=== PATIENT | female | born 1940 | race Caucasian/White ===

== ENCOUNTER 2019-03-01 09:25 | Inpatient (IN) | payer MEDICARE, OTHER ==
[~2019-03-01] VITALS: Ht 157.5 cm; Wt 100.2 kg
[2019-03-01] MEDS ORDERED: MAGN400T40 PO (09:42)
[2019-03-01] MEDS ORDERED: FURO80 PO (09:42)
[2019-03-01] MEDS ORDERED: ALLO100T PO (09:42)
[2019-03-01] MEDS ORDERED: GABA-531 PO (09:42)
[2019-03-01] MEDS ORDERED: INSLAN SQ (09:42)
[2019-03-01] MEDS ORDERED: PANT40TA25 PO (09:42)
[2019-03-01] MEDS ORDERED: KDUR20 PO (09:42)
[2019-03-01] MEDS ORDERED: [UNRECOGNIZED DRUG - CODE] TD (09:42)
[2019-03-01] MEDS ORDERED: CARV12 PO (09:42)
[2019-03-01] MEDS ORDERED: FOLI1 PO (09:42)
[2019-03-01] MEDS ORDERED: ERGO500054 PO (09:42)
[2019-03-01] MEDS ORDERED: ZARO2.5 PO (09:42)
[2019-03-01] MEDS ORDERED: DULO30CA2 PO (09:42)
[2019-03-01] MEDS ORDERED: ASPI81 PO (09:42)
[2019-03-01 09:43] LABS: GLUCOSE,POINT OF CARE 189 MG/DL (70-110)
[2019-03-01] MEDS ORDERED: SODIUM CHLORIDE 0.9% 1,000 ML IV ONE (10:15)
[2019-03-01] MEDS ORDERED: ONDANSETRON HCL 4 MG/2 ML VIAL IVP ONE (10:15)
[2019-03-01 10:41] LABS: BASOPHILS % (AUTO) 0.6 % (0.0-2.0); EOSINOPHILS % (AUTO) 0.9 % (1.0-6.0); HEMATOCRIT 37.1 % (36-46); HEMOGLOBIN 12.1 g/dL (12.0-16.0); LYMPHOCYTES # (AUTO) 1.8 K/uL (1.0-4.8); LYMPHOCYTES % (AUTO) 12.7 % (22.0-44.0); MEAN CORPUSCULAR HEMOGLOBIN 24.6 pg (26.0-34.0); MEAN CORPUSCULAR HGB CONC 32.7 G/dL (31.0-37.0); MEAN CORPUSCULAR VOLUME 75 fL (80-100); MONOCYTES # (AUTO) 0.8 K/uL (0.1-1.0); MONOCYTES % (AUTO) 5.6 % (2.0-9.0); NEUTROPHILS # (AUTO) 11.2 K/uL (1.8-7.7); NEUTROPHILS % (AUTO) 80.2 % (40.0-70.0); PLATELET COUNT (AUTO) 333 K/uL (150-450); RED BLOOD CELL COUNT(AUTO) 4.93 MIL/uL (4.00-5.20); RED CELL DISTRIBUTION WIDTH 16.8 % (11.5-14.5)
[2019-03-01 10:56] LABS: ALBUMIN 3.3 g/dL (3.4-5.0); BILIRUBIN,TOTAL 0.5 mg/dL (0.1-1.0); CALCIUM, TOTAL 9.3 mg/dL (8.8-10.5); CREATININE 2.21 mg/dL (0.60-1.30); TOTAL PROTEIN, SERUM 8.7 g/dL (6.4-8.2)
[2019-03-01 10:58] LABS: POTASSIUM 2.9 mmol/L (3.5-5.1)
[2019-03-01] MEDS ORDERED: POTASSIUM CHLORIDE 20 MEQ ER TABLET PO ONE (11:00)
[2019-03-01 11:46] LABS: APPEARANCE,URINE CLOUDY (CLEAR); BILIRUBIN,URINE NEGATIVE (NEGATIVE); GLUCOSE, URINE (UA) NEGATIVE (NEGATIVE); KETONES,URINE NEGATIVE (NEGATIVE); LEUKOCYTE ESTERASE ,URINE LARGE (NEGATIVE); NITRATE,URINE NEGATIVE (NEGATIVE); OCCULT BLOOD,URINE NEGATIVE (NEGATIVE); PH,URINE 6.5 (5.0-8.0); PROTEIN,URINE TRACE (NEGATIVE); UROBILINOGEN,URINE 0.2 mg/dL (<=1.0)
[2019-03-01 12:03] LABS: BACTERIA,URINE Many /HPF (None Seen); RBC,URINE 0-2 /HPF (0-2); SQUAMOUS EPITHELIAL CELL,UR Few /LPF (None Seen)
[2019-03-01] MEDS ORDERED: SODIUM CHLORIDE 0.9% 500 ML IV ONE (13:00)
[2019-03-01] MEDS ORDERED: BISACODYL 10 MG RECTAL RECTAL SUPPOSITORY PR PRN (13:00)
[2019-03-01] MEDS ORDERED: MORPHINE SULFATE 2 MG/ML SYRINGE IVP PRN (13:00)
[2019-03-01] MEDS ORDERED: DEXTROSE 50%-WATER 25 GM/50 ML SYRINGE IVP PRN (13:00)
[2019-03-01] MEDS ORDERED: MAGNESIUM HYDROXIDE SUSPENSION 30 ML UDCUP PO PRN (13:00)
[2019-03-01] MEDS ORDERED: ACETAMINOPHEN 325 MG TABLET PO PRN ×2 (13:00)
[2019-03-01] MEDS ORDERED: ONDANSETRON HCL 4 MG/2 ML VIAL IVP PRN ×2 (13:00)
[2019-03-01] MEDS ORDERED: CefTRIAXone 1 GM/DEXTROSE 50 ML IV ONE (13:15)
[2019-03-01] MEDS: HEPARIN SODIUM,PORCINE 5,000 UNITS/ML VIAL SQ SCH (16:22)
[2019-03-01] MEDS: DOCUSATE SODIUM 100 MG CAPSULE PO SCH (19:16)
[2019-03-01] MEDS: HYDROCODONE/ACETAMINOPHEN 5-325 MG TABLET PO PRN ×2 (19:17→21:40)
[2019-03-01] MEDS: INSULIN LISPRO 100 UNITS/ML SQ PRN (20:57)
[2019-03-01 22:27] VITALS: BP 126/61
[2019-03-02 00:20] VITALS: BP 124/69
[2019-03-02] MEDS: HEPARIN SODIUM,PORCINE 5,000 UNITS/ML VIAL SQ SCH ×3 (00:37→16:33)
[2019-03-02 00:39] LABS: GLUCOMETER DEV NAME(LOC) 5N.2; GLUCOSE,POINT OF CARE 303 MG/DL (70-110)
[2019-03-02] MEDS: HYDROCODONE/ACETAMINOPHEN 5-325 MG TABLET PO PRN ×2 (04:04→20:43)
[2019-03-02 04:50] VITALS: BP 134/63
[2019-03-02] MEDS: INSULIN LISPRO 100 UNITS/ML SQ PRN ×4 (06:11→20:53)
[2019-03-02 06:21] LABS: ALBUMIN 2.9 g/dL (3.4-5.0); BILIRUBIN,TOTAL 0.4 mg/dL (0.1-1.0); CALCIUM, TOTAL 8.4 mg/dL (8.8-10.5); CREATININE 2.17 mg/dL (0.60-1.30); TOTAL PROTEIN, SERUM 7.7 g/dL (6.4-8.2)
[2019-03-02 06:28] LABS: POTASSIUM 2.7 mmol/L (3.5-5.1)
[2019-03-02 07:34] VITALS: BP 144/71
[2019-03-02] MEDS ORDERED: SODIUM CHLORIDE 0.9% 1,000 ML IV SCH (08:00)
[2019-03-02] MEDS ORDERED: POTASSIUM CHLORIDE 20 MEQ ER TABLET PO ONE (08:00)
[2019-03-02 08:46] LABS: MAGNESIUM 2.4 mg/dL (1.80-2.40); PHOSPHORUS 4.9 mg/dL (2.5-4.9)
[2019-03-02] MEDS: DOCUSATE SODIUM 100 MG CAPSULE PO SCH ×2 (09:00→20:42)
[2019-03-02] MEDS: PANTOPRAZOLE SODIUM 40 MG DR TABLET PO SCH (10:41)
[2019-03-02] MEDS: POTASSIUM CHL 10 MEQ/WATER 50 ML IV SCH ×2 (10:41→13:25)
[2019-03-02 11:13] VITALS: BP 145/82
[2019-03-02 15:35] VITALS: BP 154/71
[2019-03-02 16:01] LABS: GLUCOMETER DEV NAME(LOC) 5N.1; GLUCOSE,POINT OF CARE 233 MG/DL (70-110)
[2019-03-02] MEDS ORDERED: POTASSIUM CHLORIDE 10 MEQ ER TABLET PO ONE (17:45)
[2019-03-02 18:13] LABS: GLUCOMETER DEV NAME(LOC) 5S.2A; GLUCOSE,POINT OF CARE 192 MG/DL (70-110)
[2019-03-02 19:50] LABS: GLUCOMETER DEV NAME(LOC) 5N.2; GLUCOSE,POINT OF CARE 256 MG/DL (70-110)
[2019-03-02 21:04] VITALS: BP 144/65
[2019-03-02 22:34] LABS: CREATININE,URINE RANDOM 12.7 mg/dL (30.0-125.0)
[2019-03-03] MEDS: HEPARIN SODIUM,PORCINE 5,000 UNITS/ML VIAL SQ SCH ×3 (00:33→16:46)
[2019-03-03] MEDS: ZOLPIDEM TARTRATE 5 MG TABLET PO PRN ×2 (00:33→20:40)
[2019-03-03 01:14] VITALS: BP 131/56
[2019-03-03 04:55] VITALS: BP 140/64
[2019-03-03] MEDS: INSULIN LISPRO 100 UNITS/ML SQ PRN ×4 (06:29→21:04)
[2019-03-03 06:55] LABS: BASOPHILS % (AUTO) 0.4 % (0.0-2.0); EOSINOPHILS % (AUTO) 2.2 % (1.0-6.0); HEMATOCRIT 33.9 % (36-46); HEMOGLOBIN 10.8 g/dL (12.0-16.0); LYMPHOCYTES # (AUTO) 1.7 K/uL (1.0-4.8); LYMPHOCYTES % (AUTO) 18.4 % (22.0-44.0); MEAN CORPUSCULAR HEMOGLOBIN 24.2 pg (26.0-34.0); MEAN CORPUSCULAR HGB CONC 31.7 G/dL (31.0-37.0); MEAN CORPUSCULAR VOLUME 76 fL (80-100); MONOCYTES # (AUTO) 0.8 K/uL (0.1-1.0); MONOCYTES % (AUTO) 8.2 % (2.0-9.0); NEUTROPHILS # (AUTO) 6.7 K/uL (1.8-7.7); NEUTROPHILS % (AUTO) 70.8 % (40.0-70.0); PLATELET COUNT (AUTO) 314 K/uL (150-450); RED BLOOD CELL COUNT(AUTO) 4.45 MIL/uL (4.00-5.20); RED CELL DISTRIBUTION WIDTH 16.9 % (11.5-14.5)
[2019-03-03 07:20] LABS: HEMOGLOBIN A1C 8.6 % (4.5-6.2)
[2019-03-03 07:37] LABS: ALBUMIN 3.1 g/dL (3.4-5.0); BILIRUBIN,TOTAL 0.3 mg/dL (0.1-1.0); CALCIUM, TOTAL 8.8 mg/dL (8.8-10.5); CREATININE 1.61 mg/dL (0.60-1.30); MAGNESIUM 2.3 mg/dL (1.80-2.40); PHOSPHORUS 3.1 mg/dL (2.5-4.9)
[2019-03-03 07:53] VITALS: BP 150/79
[2019-03-03 07:53] LABS: POTASSIUM 2.8 mmol/L (3.5-5.1)
[2019-03-03] MEDS ORDERED: POTASSIUM CHLORIDE 20 MEQ ER TABLET PO ONE (08:15)
[2019-03-03] MEDS: PANTOPRAZOLE SODIUM 40 MG DR TABLET PO SCH (08:31)
[2019-03-03] MEDS: DOCUSATE SODIUM 100 MG CAPSULE PO SCH ×2 (08:31→20:40)
[2019-03-03] MEDS: POTASSIUM CHL 10 MEQ/WATER 50 ML IV SCH ×2 (08:32→13:01)
[2019-03-03 11:03] VITALS: BP 157/78
[2019-03-03 13:32] LABS: GLUCOMETER DEV NAME(LOC) 5N.1; GLUCOSE,POINT OF CARE 323 MG/DL (70-110)
[2019-03-03 13:52] LABS: GLUCOMETER DEV NAME(LOC) 5S.2A; GLUCOSE,POINT OF CARE 286 MG/DL (70-110)
[2019-03-03 15:07] VITALS: BP 137/92
[2019-03-03] MEDS: HYDROCODONE/ACETAMINOPHEN 5-325 MG TABLET PO PRN (15:55)
[2019-03-03 19:39] LABS: GLUCOMETER DEV NAME(LOC) 5S.1; GLUCOSE,POINT OF CARE 203 MG/DL (70-110)
[2019-03-03 20:43] VITALS: BP 155/81
[2019-03-04 00:56] VITALS: BP 147/60
[2019-03-04] MEDS: HYDROCODONE/ACETAMINOPHEN 5-325 MG TABLET PO PRN ×2 (00:56→05:37)
[2019-03-04 04:38] VITALS: BP 154/76
[2019-03-04] MEDS: INSULIN LISPRO 100 UNITS/ML SQ PRN ×2 (05:42→12:27)
[2019-03-04 06:52] LABS: BASOPHILS % (AUTO) 0.5 % (0.0-2.0); HEMATOCRIT 34.1 % (36-46); HEMOGLOBIN 10.8 g/dL (12.0-16.0); LYMPHOCYTES # (AUTO) 1.8 K/uL (1.0-4.8); LYMPHOCYTES % (AUTO) 19.3 % (22.0-44.0); MEAN CORPUSCULAR HEMOGLOBIN 24.3 pg (26.0-34.0); MEAN CORPUSCULAR HGB CONC 31.8 G/dL (31.0-37.0); MEAN CORPUSCULAR VOLUME 76 fL (80-100); MONOCYTES # (AUTO) 0.7 K/uL (0.1-1.0); MONOCYTES % (AUTO) 7.5 % (2.0-9.0); NEUTROPHILS # (AUTO) 6.5 K/uL (1.8-7.7); NEUTROPHILS % (AUTO) 70.7 % (40.0-70.0); PLATELET COUNT (AUTO) 343 K/uL (150-450); RED BLOOD CELL COUNT(AUTO) 4.46 MIL/uL (4.00-5.20); RED CELL DISTRIBUTION WIDTH 16.5 % (11.5-14.5)
[2019-03-04 07:01] LABS: % IRON SATURATION 12.4 % (22-44)
[2019-03-04 07:11] LABS: CALCIUM, TOTAL 8.9 mg/dL (8.8-10.5); CREATININE 1.42 mg/dL (0.60-1.30); MAGNESIUM 2.1 mg/dL (1.80-2.40); PHOSPHORUS 2.8 mg/dL (2.5-4.9); POTASSIUM 3.7 mmol/L (3.5-5.1)
[2019-03-04 08:20] LABS: GLUCOMETER DEV NAME(LOC) 5N.1; GLUCOSE,POINT OF CARE 241 MG/DL (70-110)
[2019-03-04 08:27] VITALS: BP 161/83
[2019-03-04] MEDS: PANTOPRAZOLE SODIUM 40 MG DR TABLET PO SCH (09:40)
[2019-03-04] MEDS: DOCUSATE SODIUM 100 MG CAPSULE PO SCH (09:40)
[2019-03-04] MEDS: HEPARIN SODIUM,PORCINE 5,000 UNITS/ML VIAL SQ SCH ×2 (09:40)
[2019-03-04 11:13] VITALS: BP 149/63
[2019-03-04 12:22] LABS: GLUCOMETER DEV NAME(LOC) 5S.2A; GLUCOSE,POINT OF CARE 243 MG/DL (70-110)
[2019-03-04 12:22] LABS: GLUCOMETER DEV NAME(LOC) 5S.2A; GLUCOSE,POINT OF CARE 233 MG/DL (70-110)
[2019-03-04 12:22] LABS: GLUCOMETER DEV NAME(LOC) 5S.2A; GLUCOSE,POINT OF CARE 235 MG/DL (70-110)
[2019-03-04] MEDS ORDERED: FUROL PO (13:46)
[2019-03-04] MEDS ORDERED: POTA8CAP20 PO (13:47)
[2019-03-04] MEDS ORDERED: GABA-529 PO (13:47)
[2019-03-04] MEDS ORDERED: FURO20 PO (13:48)
== END 2019-03-04 15:50 | disposition home health service (06) | DRG 682 ==
LOC: EMS 09:26 → 5S 18:45
PROVIDERS: ADMIT Internal Medicine; ATTEND Internal Medicine
DX: N17.9 Acute kidney failure, unspecified (principal); R65.11 Systemic inflammatory response syndrome (SIRS) of non-infectious origin with acute organ dysfunction; E87.1 Hypo-osmolality and hyponatremia; Z68.41 Body mass index [BMI] 40.0-44.9, adult; N39.0 Urinary tract infection, site not specified; I13.0 Hypertensive heart and chronic kidney disease with heart failure and stage 1 through stage 4 chronic kidney disease, or unspecified chronic kidney disease; E87.6 Hypokalemia; N18.9 Chronic kidney disease, unspecified; E66.9 Obesity, unspecified; E11.22 Type 2 diabetes mellitus with diabetic chronic kidney disease; I50.9 Heart failure, unspecified; I25.10 Atherosclerotic heart disease of native coronary artery without angina pectoris; T50.2X5A Adverse effect of carbonic-anhydrase inhibitors, benzothiadiazides and other diuretics, initial encounter; J44.9 Chronic obstructive pulmonary disease, unspecified; M10.9 Gout, unspecified; Z95.1 Presence of aortocoronary bypass graft; Z87.891 Personal history of nicotine dependence; Z86.61 Personal history of infections of the central nervous system; Z79.899 Other long term (current) drug therapy; Z79.82 Long term (current) use of aspirin; Z79.4 Long term (current) use of insulin
CPT/HCPCS: 70450; 76770; 82570; 82728; 83036; 83540; 83550; 83735; 83935; 84100; 84132; 84156; 84300; 84540; 87086; 93005; 93306; 97116; 97162; 97166; 97530; 97535; G0378; J0696; J1644; J2270; J2405; J3480; J7030; J7040

== ENCOUNTER → 2019-03-31 | Outpatient (CLI) | payer MEDICARE, OTHER ==
[~2019-03-31] VITALS: Ht 154.9 cm; Wt 98.0 kg
[~2019-03-31] MED LIST: ALLO100T PO; ASPI-728 PO; CARV12 PO; DULO30CA2 PO; ERGO500054 PO; FOLI1 PO; FURO20 PO; GABA-529 PO; INSLAN SQ; INSU100C14 SQ; KDUR20 PO; MAGN400T40 PO; PANT40TA25 PO; POTA8CAP20 PO; POTA8TAB60 PO
[2019-03-31 11:15] VITALS: BP 159/72
[2019-03-31 15:40] LABS: GLUCOMETER DEV NAME(LOC) SHC.; GLUCOSE,POINT OF CARE 149 MG/DL (70-110)
== END | disposition home or self-care (01) ==
LOC: SRCNTR 11:14
PROVIDERS: ATTEND Hospitalist
DX: I25.10 Atherosclerotic heart disease of native coronary artery without angina pectoris (principal); E11.65 Type 2 diabetes mellitus with hyperglycemia; E11.22 Type 2 diabetes mellitus with diabetic chronic kidney disease; I12.9 Hypertensive chronic kidney disease with stage 1 through stage 4 chronic kidney disease, or unspecified chronic kidney disease; N18.9 Chronic kidney disease, unspecified
CPT/HCPCS: 82962; G0463

== ENCOUNTER 2019-04-22 13:23 | Emergency (ER) | payer MEDICARE, OTHER ==
[~2019-04-22] VITALS: Ht 160 cm; Wt 96.8 kg
[~2019-04-22 13:23] MED LIST changes: -ASPI-728 PO; +ASPI81 PO; -ERGO500054 PO; -INSU100C14 SQ; -KDUR20 PO; -MAGN400T40 PO; -POTA8CAP20 PO
[2019-04-22] MEDS ORDERED: KDUR20 PO (13:48)
[2019-04-22] MEDS ORDERED: INSU100C14 SQ (13:48)
[2019-04-22] MEDS ORDERED: SODIUM CHLORIDE 0.9% 1,000 ML IV ONE (14:15)
[2019-04-22] MEDS ORDERED: ONDANSETRON HCL 4 MG/2 ML VIAL IVP ONE (14:30)
[2019-04-22] MEDS ORDERED: MORPHINE SULFATE 4 MG/ML SYRINGE IVP ONE (14:30)
[2019-04-22 14:40] LABS: BASOPHILS % (AUTO) 0.1 % (0.0-2.0); EOSINOPHILS % (AUTO) 0.7 % (1.0-6.0); HEMATOCRIT 37.1 % (36-46); HEMOGLOBIN 11.7 g/dL (12.0-16.0); LYMPHOCYTES # (AUTO) 1.4 K/uL (1.0-4.8); LYMPHOCYTES % (AUTO) 8.8 % (22.0-44.0); MEAN CORPUSCULAR HEMOGLOBIN 24.9 pg (26.0-34.0); MEAN CORPUSCULAR HGB CONC 31.7 G/dL (31.0-37.0); MEAN CORPUSCULAR VOLUME 79 fL (80-100); MONOCYTES # (AUTO) 0.9 K/uL (0.1-1.0); MONOCYTES % (AUTO) 5.4 % (2.0-9.0); NEUTROPHILS # (AUTO) 13.9 K/uL (1.8-7.7); PLATELET COUNT (AUTO) 256 K/uL (150-450); RED BLOOD CELL COUNT(AUTO) 4.71 MIL/uL (4.00-5.20); RED CELL DISTRIBUTION WIDTH 17.9 % (11.5-14.5)
[2019-04-22 14:57] LABS: CALCIUM, TOTAL 8.6 mg/dL (8.8-10.5); CREATININE 1.82 mg/dL (0.60-1.30); POTASSIUM 4.1 mmol/L (3.5-5.1)
[2019-04-22 15:03] LABS: ALBUMIN 3.5 g/dL (3.4-5.0); BILIRUBIN,TOTAL 0.7 mg/dL (0.1-1.0); TOTAL PROTEIN, SERUM 7.5 g/dL (6.4-8.2)
[2019-04-22 15:14] LABS: APPEARANCE,URINE CLOUDY (CLEAR); GLUCOSE, URINE (UA) NEGATIVE (NEGATIVE); KETONES,URINE NEGATIVE (NEGATIVE); LEUKOCYTE ESTERASE ,URINE LARGE (NEGATIVE); NITRATE,URINE NEGATIVE (NEGATIVE); OCCULT BLOOD,URINE TRACE (NEGATIVE); PH,URINE 5.5 (5.0-8.0); PROTEIN,URINE SEE CONFIRM (NEGATIVE)
[2019-04-22] MEDS ORDERED: BARIUM SULFATE 0.1% SUSPENSION 450 ML BOTTLE PO ONE (15:15)
[2019-04-22 15:18] LABS: BILIRUBIN,URINE PRELIM. POSITIVE (NEGATIVE)
[2019-04-22 15:22] LABS: SULFOSALICYLIC ACID,URINE 4+ (Negative)
[2019-04-22 15:23] LABS: BACTERIA,URINE Many /HPF (None Seen); RBC,URINE 0-2 /HPF (0-2); WBC,URINE 51-100 /HPF (0-5)
[2019-04-22 15:24] LABS: TRANSITIONAL EPI CELLS,URINE Few /LPF (None Seen)
[2019-04-22 15:26] LABS: SQUAMOUS EPITHELIAL CELL,UR Many /LPF (None Seen)
[2019-04-22 15:55] LABS: GLUCOSE,POINT OF CARE 244 MG/DL (70-110)
[2019-04-22 19:15] VITALS: BP 130/78
== END 2019-04-22 19:16 | disposition home or self-care (01) ==
LOC: EMS 13:26
DX: K52.9 Noninfective gastroenteritis and colitis, unspecified (principal); R11.2 Nausea with vomiting, unspecified; E11.9 Type 2 diabetes mellitus without complications; I11.0 Hypertensive heart disease with heart failure; I50.9 Heart failure, unspecified; J44.9 Chronic obstructive pulmonary disease, unspecified; Z90.49 Acquired absence of other specified parts of digestive tract; Z95.1 Presence of aortocoronary bypass graft; Z95.0 Presence of cardiac pacemaker; Z79.899 Other long term (current) drug therapy; Z79.4 Long term (current) use of insulin; Z98.890 Other specified postprocedural states; Z88.8 Allergy status to other drugs, medicaments and biological substances
CPT/HCPCS: 36415; 74176; 80053; 81001; 82962; 83605; 83690; 84484; 85025; 87077; 87086; 87186; 93005; 96361; 96374; 96375; 99285; J2270; J2405; J7030

== ENCOUNTER → 2019-05-27 | Outpatient (CLI) | payer MEDICARE, OTHER ==
[~2019-05-27] MED LIST changes: +ASPI-728 PO; -ASPI81 PO; +INSU100C14 SQ; +KDUR20 PO
[2019-05-27 11:07] LABS: HEMATOCRIT 31.8 % (36-46); HEMOGLOBIN 10.3 g/dL (12.0-16.0)
[2019-05-27 11:15] LABS: CREATININE,URINE RANDOM 38.7 mg/dL (30.0-125.0)
[2019-05-27 11:25] LABS: % IRON SATURATION 9.2 % (22-44)
[2019-05-27 11:45] LABS: ALBUMIN 3.4 g/dL (3.4-5.0); BILIRUBIN,TOTAL 0.3 mg/dL (0.1-1.0); CALCIUM, TOTAL 8.7 mg/dL (8.8-10.5); CREATININE 1.05 mg/dL (0.60-1.30); POTASSIUM 4.8 mmol/L (3.5-5.1); TOTAL PROTEIN, SERUM 7.1 g/dL (6.4-8.2)
== END | disposition home or self-care (01) ==
LOC: LABPV 09:46
PROVIDERS: ATTEND Internal Medicine Nephrology
DX: E11.22 Type 2 diabetes mellitus with diabetic chronic kidney disease (principal); N18.3 Chronic kidney disease, stage 3 (moderate); D63.1 Anemia in chronic kidney disease
CPT/HCPCS: 82570; 83540; 83550; 84156; 85014; 85018

== ENCOUNTER → 2019-06-23 | Outpatient (CLI) | payer MEDICARE, OTHER ==
[2019-06-23 12:47] LABS: CREATININE,URINE 20.1 mg/dL (30.0-125.0)
[2019-06-24 13:32] LABS: CREATININE,SERUM FOR CRCL 1.94 mg/dL (0.60-1.30)
== END | disposition home or self-care (01) ==
LOC: LABPV 06-20 08:01
PROVIDERS: ATTEND Internal Medicine Nephrology
DX: N18.3 Chronic kidney disease, stage 3 (moderate) (principal)
CPT/HCPCS: 81050; 82575; 84156; 84300

== ENCOUNTER → 2019-06-23 | Outpatient (CLI) | payer MEDICARE, OTHER ==
[~2019-06-23] MED LIST changes: +IOVERSOL 350 MG/ML 100 ML VIAL ONE; +SODIUM CHLORIDE 0.9% 100 ML ONE
== END | disposition home or self-care (01) ==
LOC: RADMN 09:16
PROVIDERS: ATTEND Internal Medicine Nephrology
DX: N28.89 Other specified disorders of kidney and ureter (principal)
CPT/HCPCS: 74178; J7050; Q9967

== ENCOUNTER → 2019-12-15 | Outpatient (CLI) | payer MEDICARE, OTHER ==
[~2019-12-15] MED LIST changes: +ALLO-44 PO; -ALLO100T PO; -DULO30CA2 PO; +DULO30CA96 PO; +FOLI-130 PO; -FOLI1 PO; +GABA-1216 PO; -GABA-529 PO; -IOVERSOL 350 MG/ML 100 ML VIAL ONE; -KDUR20 PO; +PANT-31 PO; -PANT40TA25 PO; +POTA20TA83 PO; -SODIUM CHLORIDE 0.9% 100 ML ONE
== END | disposition home or self-care (01) ==
LOC: SRCNTR 11:03
PROVIDERS: ATTEND Hospitalist
DX: I12.9 Hypertensive chronic kidney disease with stage 1 through stage 4 chronic kidney disease, or unspecified chronic kidney disease (principal); I25.10 Atherosclerotic heart disease of native coronary artery without angina pectoris; N18.3 Chronic kidney disease, stage 3 (moderate); C55 Malignant neoplasm of uterus, part unspecified; N30.40 Irradiation cystitis without hematuria; H35.30 Unspecified macular degeneration; H26.9 Unspecified cataract; Z95.0 Presence of cardiac pacemaker; Z95.1 Presence of aortocoronary bypass graft; Z90.710 Acquired absence of both cervix and uterus; Z90.49 Acquired absence of other specified parts of digestive tract; Z98.890 Other specified postprocedural states; Z88.8 Allergy status to other drugs, medicaments and biological substances; Z79.82 Long term (current) use of aspirin; Z79.4 Long term (current) use of insulin; Z79.899 Other long term (current) drug therapy
CPT/HCPCS: Q3014

== ENCOUNTER 2020-02-25 12:57 | Emergency (ER) | payer MEDICARE, OTHER ==
[~2020-02-25] VITALS: Ht 154.9 cm; Wt 94.3 kg
[2020-02-25 16:26] LABS: BASOPHILS % (AUTO) 0.5 % (0.0-2.0); EOSINOPHILS % (AUTO) 1.1 % (1.0-6.0); HEMATOCRIT 38.5 % (36-46); HEMOGLOBIN 12.5 g/dL (12.0-16.0); LYMPHOCYTES # (AUTO) 1.7 K/uL (1.0-4.8); LYMPHOCYTES % (AUTO) 16.1 % (22.0-44.0); MEAN CORPUSCULAR HEMOGLOBIN 27.3 pg (26.0-34.0); MEAN CORPUSCULAR HGB CONC 32.6 G/dL (31.0-37.0); MEAN CORPUSCULAR VOLUME 84 fL (80-100); MONOCYTES # (AUTO) 0.7 K/uL (0.1-1.0); MONOCYTES % (AUTO) 6.9 % (2.0-9.0); NEUTROPHILS # (AUTO) 7.8 K/uL (1.8-7.7); NEUTROPHILS % (AUTO) 75.4 % (40.0-70.0); PLATELET COUNT (AUTO) 261 K/uL (150-450); RED CELL DISTRIBUTION WIDTH 16.6 % (11.5-14.5)
[2020-02-25 16:37] LABS: CALCIUM, TOTAL 9.7 mg/dL (8.8-10.5); CREATININE 2.13 mg/dL (0.60-1.30); POTASSIUM 3.8 mmol/L (3.5-5.1)
[2020-02-25 16:43] LABS: ALBUMIN 4.1 g/dL (3.4-5.0); BILIRUBIN,TOTAL 0.6 mg/dL (0.1-1.0); TOTAL PROTEIN, SERUM 8.4 g/dL (6.4-8.2)
[2020-02-25] MEDS ORDERED: SODIUM CHLORIDE 0.9% 500 ML IV ONE (17:00)
[2020-02-25 17:17] LABS: APPEARANCE,URINE CLOUDY (CLEAR); BILIRUBIN,URINE NEGATIVE (NEGATIVE); GLUCOSE, URINE (UA) NEGATIVE (NEGATIVE); KETONES,URINE NEGATIVE (NEGATIVE); LEUKOCYTE ESTERASE ,URINE MODERATE (NEGATIVE); NITRATE,URINE NEGATIVE (NEGATIVE); OCCULT BLOOD,URINE NEGATIVE (NEGATIVE); PH,URINE 5.5 (5.0-8.0); PROTEIN,URINE POS 1+ (NEGATIVE); UROBILINOGEN,URINE 0.2 mg/dL (<=1.0)
[2020-02-25 17:22] LABS: BACTERIA,URINE Many /HPF (None Seen)
[2020-02-25 17:23] LABS: RBC,URINE None Seen /HPF (0-2); SQUAMOUS EPITHELIAL CELL,UR Few /LPF (None Seen)
[2020-02-25] MEDS ORDERED: CEPHALEXIN MONOHYDRATE 500 MG CAPSULE PO ONE (17:30)
[2020-02-25 18:40] VITALS: BP 171/84
== END 2020-02-25 19:03 | disposition home or self-care (01) ==
LOC: EMS 12:57
DX: N39.0 Urinary tract infection, site not specified (principal); R19.7 Diarrhea, unspecified; I11.0 Hypertensive heart disease with heart failure; I50.9 Heart failure, unspecified; E11.9 Type 2 diabetes mellitus without complications; Z87.891 Personal history of nicotine dependence; Z90.49 Acquired absence of other specified parts of digestive tract; Z79.82 Long term (current) use of aspirin; Z79.899 Other long term (current) drug therapy
CPT/HCPCS: 36415; 80053; 81001; 83880; 84484; 85025; 87086; 93005; 99284; J7040; 96360

== ENCOUNTER → 2020-06-04 | Outpatient (CLI) | payer MEDICARE, OTHER ==
[~2020-06-04] VITALS: Ht 152.4 cm; Wt 104.0 kg
[~2020-06-04] MED LIST changes: -ALLO-44 PO; +ALLO100T2 PO; +ASPI-1450 PO; -ASPI-728 PO; +CLON-465 PO; +CLOP75TA60 PO; -POTA8TAB60 PO
[2020-06-04 10:04] VITALS: BP 180/83
== END | disposition home or self-care (01) ==
LOC: SRCNTR 09:48
PROVIDERS: ATTEND Hospitalist
DX: C54.1 Malignant neoplasm of endometrium (principal); I25.10 Atherosclerotic heart disease of native coronary artery without angina pectoris; I12.9 Hypertensive chronic kidney disease with stage 1 through stage 4 chronic kidney disease, or unspecified chronic kidney disease; E11.22 Type 2 diabetes mellitus with diabetic chronic kidney disease; N18.30 Chronic kidney disease, stage 3 unspecified; N30.40 Irradiation cystitis without hematuria; G62.9 Polyneuropathy, unspecified; H35.30 Unspecified macular degeneration; H26.8 Other specified cataract; Z95.0 Presence of cardiac pacemaker
CPT/HCPCS: G0463

== ENCOUNTER 2020-06-30 20:29 | Inpatient (IN) | payer MEDICARE, OTHER ==
[~2020-06-30] VITALS: Ht 157.5 cm; Wt 105.1 kg
[2020-06-30] MEDS ORDERED: ONDANSETRON HCL 4 MG/2 ML VIAL IVP ONE (22:00)
[2020-06-30] MEDS ORDERED: MORPHINE SULFATE 2 MG/ML SYRINGE IVP ONE (22:00)
[2020-06-30] MEDS ORDERED: 0.9% SODIUM CHLORIDE 10 ML SYRINGE IVP PRN (22:15)
[2020-06-30] MEDS ORDERED: ACETAMINOPHEN 325 MG TABLET PO PRN ×2 (22:15→23:15)
[2020-06-30] MEDS ORDERED: ONDANSETRON HCL 4 MG/2 ML VIAL IVP PRN ×2 (22:15→23:15)
[2020-06-30 22:26] LABS: COVID AG,FIA SOURCE NASOPHARYNGEAL
[2020-06-30] MEDS ORDERED: MAGNESIUM HYDROXIDE SUSPENSION 30 ML UDCUP PO PRN (23:15)
[2020-06-30] MEDS ORDERED: ALBUTEROL SULFATE 2.5 MG/0.5 ML NEB SOLUTION NEB PRN (23:15)
[2020-06-30] MEDS ORDERED: HYDROCODONE/ACETAMINOPHEN 5-325 MG TABLET PO PRN (23:15)
[2020-06-30] MEDS ORDERED: IPRATROPIUM BROMIDE 0.5 MG/2.5 ML NEB SOLUTION NEB PRN (23:15)
[2020-06-30] MEDS ORDERED: HydrALAZINE HCL 20 MG/ML VIAL IVP PRN (23:15)
[2020-06-30] MEDS ORDERED: ZOLPIDEM TARTRATE 5 MG TABLET PO PRN (23:15)
[2020-06-30] MEDS ORDERED: BISACODYL 10 MG RECTAL RECTAL SUPPOSITORY PR PRN (23:15)
[2020-06-30] MEDS: HEPARIN SODIUM,PORCINE 5,000 UNITS/ML VIAL SQ SCH (23:53)
[2020-07-01] MEDS: MORPHINE SULFATE 2 MG/ML SYRINGE IVP PRN ×5 (00:30→21:26)
[2020-07-01 04:57] VITALS: BP 108/47
[2020-07-01 05:45] LABS: GLUCOMETER DEV NAME(LOC) 5S.2B; GLUCOSE,POINT OF CARE 205 MG/DL (70-110)
[2020-07-01] MEDS ORDERED: DEXTROSE 50%-WATER 25 GM/50 ML SYRINGE IVP PRN (07:00)
[2020-07-01 07:14] VITALS: BP 129/72
[2020-07-01] MEDS: HEPARIN SODIUM,PORCINE 5,000 UNITS/ML VIAL SQ SCH ×3 (08:00→20:51)
[2020-07-01] MEDS: CLOPIDOGREL BISULFATE 75 MG TABLET PO SCH (09:00)
[2020-07-01] MEDS ORDERED: [UNRECOGNIZED DRUG - OTHER] PO SCH ×3 (09:00)
[2020-07-01] MEDS: ASPIRIN 81 MG CHEWABLE TABLET PO SCH (10:45)
[2020-07-01] MEDS: FOLIC ACID 1 MG TABLET PO SCH (10:46)
[2020-07-01] MEDS: PANTOPRAZOLE SODIUM 40 MG DR TABLET PO SCH (10:46)
[2020-07-01] MEDS: CARVEDILOL 12.5 MG TABLET PO SCH ×2 (10:46→20:55)
[2020-07-01] MEDS: DOCUSATE SODIUM 100 MG CAPSULE PO SCH ×2 (10:46→20:55)
[2020-07-01] MEDS: GABAPENTIN 100 MG CAPSULE PO SCH ×3 (10:47→20:55)
[2020-07-01 11:32] VITALS: BP 144/83
[2020-07-01] MEDS: FUROSEMIDE 20 MG TABLET PO SCH ×2 (13:08→20:56)
[2020-07-01] MEDS: ALLOPURINOL 100 MG TABLET PO SCH (13:09)
[2020-07-01] MEDS: POTASSIUM CHLORIDE 20 MEQ ER TABLET PO SCH ×2 (13:09→20:55)
[2020-07-01] MEDS: DULoxetine HCL 30 MG CAPSULE PO SCH (13:09)
[2020-07-01] MEDS: INSULIN LISPRO 100 UNITS/ML SQ PRN ×3 (13:14→21:28)
[2020-07-01 16:31] VITALS: BP 109/54
[2020-07-01 18:23] LABS: GLUCOMETER DEV NAME(LOC) 5S.2B; GLUCOSE,POINT OF CARE 162 MG/DL (70-110)
[2020-07-01 18:24] LABS: GLUCOMETER DEV NAME(LOC) 5S.2B; GLUCOSE,POINT OF CARE 230 MG/DL (70-110)
[2020-07-01 19:35] VITALS: BP 120/87
[2020-07-01] MEDS: RINGERS SOLUTION,LACTATED 1,000 ML IV SCH (20:59)
[2020-07-01 21:32] LABS: BASOPHILS % (AUTO) 0.6 % (0.0-2.0); EOSINOPHILS % (AUTO) 3.1 % (1.0-6.0); HEMATOCRIT 28.6 % (36-46); HEMOGLOBIN 9.1 g/dL (12.0-16.0); LYMPHOCYTES % (AUTO) 10.4 % (22.0-44.0); MEAN CORPUSCULAR HEMOGLOBIN 26.6 pg (26.0-34.0); MEAN CORPUSCULAR HGB CONC 31.7 G/dL (31.0-37.0); MEAN CORPUSCULAR VOLUME 84 fL (80-100); MONOCYTES # (AUTO) 0.9 K/uL (0.1-1.0); MONOCYTES % (AUTO) 9.8 % (2.0-9.0); NEUTROPHILS % (AUTO) 76.1 % (40.0-70.0); PLATELET COUNT (AUTO) 200 K/uL (150-450); RED BLOOD CELL COUNT(AUTO) 3.41 MIL/uL (4.00-5.20); RED CELL DISTRIBUTION WIDTH 16.6 % (11.5-14.5)
[2020-07-01 21:40] LABS: CALCIUM, TOTAL 8.8 mg/dL (8.8-10.5); CREATININE 2.68 mg/dL (0.60-1.30); POTASSIUM 4.4 mmol/L (3.5-5.1)
[2020-07-01 21:45] LABS: INR 1.1 (0.9-1.1)
[2020-07-01 23:06] VITALS: BP 140/88
[2020-07-02 03:30] LABS: GLUCOMETER DEV NAME(LOC) 5S.2B; GLUCOSE,POINT OF CARE 179 MG/DL (70-110)
[2020-07-02] MEDS: MORPHINE SULFATE 2 MG/ML SYRINGE IVP PRN (03:55)
[2020-07-02 04:20] VITALS: BP 137/50
[2020-07-02 06:54] LABS: GLUCOMETER DEV NAME(LOC) 5S.2B; GLUCOSE,POINT OF CARE 156 MG/DL (70-110)
[2020-07-02 07:37] VITALS: BP 158/71
[2020-07-02] MEDS: HEPARIN SODIUM,PORCINE 5,000 UNITS/ML VIAL SQ SCH ×2 (08:00→16:00)
[2020-07-02] MEDS: ASPIRIN 81 MG CHEWABLE TABLET PO SCH (09:00)
[2020-07-02] MEDS: CLOPIDOGREL BISULFATE 75 MG TABLET PO SCH (09:00)
[2020-07-02] MEDS: FUROSEMIDE 20 MG TABLET PO SCH ×2 (09:00→09:20)
[2020-07-02] MEDS: POTASSIUM CHLORIDE 20 MEQ ER TABLET PO SCH ×2 (09:00→09:18)
[2020-07-02] MEDS: FOLIC ACID 1 MG TABLET PO SCH (09:18)
[2020-07-02] MEDS: ALLOPURINOL 100 MG TABLET PO SCH (09:18)
[2020-07-02] MEDS: DULoxetine HCL 30 MG CAPSULE PO SCH (09:18)
[2020-07-02] MEDS: CARVEDILOL 12.5 MG TABLET PO SCH ×2 (09:19→20:00)
[2020-07-02] MEDS: PANTOPRAZOLE SODIUM 40 MG DR TABLET PO SCH (09:19)
[2020-07-02] MEDS: GABAPENTIN 100 MG CAPSULE PO SCH ×3 (09:20→20:00)
[2020-07-02] MEDS: DOCUSATE SODIUM 100 MG CAPSULE PO SCH ×2 (09:20→19:59)
[2020-07-02 11:12] VITALS: BP 135/56
[2020-07-02] MEDS: RINGERS SOLUTION,LACTATED 1,000 ML IV SCH (11:19)
[2020-07-02] MEDS ORDERED: BUPIVACAINE HCL/PF 0.5% 30 ML VIAL ONE (14:22)
[2020-07-02] MEDS ORDERED: SODIUM CL IRRIG SOLN BAG 0 ML IRRIG ONE (14:23)
[2020-07-02] MEDS ORDERED: LIDOCAINE 1%/EPI 1:200,000/PF 30 ML VIAL ONE (14:23)
[2020-07-02] MEDS ORDERED: FURO80 PO (14:55)
[2020-07-02] MEDS ORDERED: GABA-1181 PO (14:55)
[2020-07-02] MEDS ORDERED: CLON0.1T2 PO (14:55)
[2020-07-02 16:36] VITALS: BP 143/53
[2020-07-02] MEDS ORDERED: BUMETANIDE 0.25 MG/ML 4 ML VIAL IVP ONE (17:00)
[2020-07-02] MEDS ORDERED: SODIUM CHLORIDE 0.9% 1,000 ML IV SCH (18:15)
[2020-07-02] MEDS: INSULIN LISPRO 100 UNITS/ML SQ PRN ×2 (18:18→20:01)
[2020-07-02 19:25] VITALS: BP 144/58
[2020-07-02 23:11] VITALS: BP 129/70
[2020-07-03] VITALS (7 sets, daily range): BP systolic 100–152; BP diastolic 47–80
[2020-07-03 00:18] LABS: GLUCOMETER DEV NAME(LOC) 5S.2B; GLUCOSE,POINT OF CARE 174 MG/DL (70-110)
[2020-07-03 00:18] LABS: GLUCOMETER DEV NAME(LOC) 5N.3; GLUCOSE,POINT OF CARE 290 MG/DL (70-110)
[2020-07-03 00:18] LABS: GLUCOMETER DEV NAME(LOC) 5S.2B; GLUCOSE,POINT OF CARE 163 MG/DL (70-110)
[2020-07-03] MEDS: MORPHINE SULFATE 2 MG/ML SYRINGE IVP PRN (04:01)
[2020-07-03 06:53] LABS: CALCIUM, TOTAL 8.8 mg/dL (8.8-10.5); CREATININE 2.14 mg/dL (0.60-1.30); MAGNESIUM 1.5 mg/dL (1.80-2.40); PHOSPHORUS 4.6 mg/dL (2.5-4.9); POTASSIUM 3.7 mmol/L (3.5-5.1)
[2020-07-03 07:00] LABS: % IRON SATURATION 7.1 % (22-44)
[2020-07-03 07:42] LABS: BASOPHILS % (AUTO) 0.4 % (0.0-2.0); EOSINOPHILS % (AUTO) 2.7 % (1.0-6.0); HEMATOCRIT 27.4 % (36-46); HEMOGLOBIN 8.7 g/dL (12.0-16.0); LYMPHOCYTES # (AUTO) 0.8 K/uL (1.0-4.8); LYMPHOCYTES % (AUTO) 8.1 % (22.0-44.0); MEAN CORPUSCULAR HEMOGLOBIN 26.8 pg (26.0-34.0); MEAN CORPUSCULAR HGB CONC 31.7 G/dL (31.0-37.0); MEAN CORPUSCULAR VOLUME 84 fL (80-100); MONOCYTES % (AUTO) 10.3 % (2.0-9.0); NEUTROPHILS # (AUTO) 7.7 K/uL (1.8-7.7); NEUTROPHILS % (AUTO) 78.5 % (40.0-70.0); PLATELET COUNT (AUTO) 185 K/uL (150-450); RED BLOOD CELL COUNT(AUTO) 3.25 MIL/uL (4.00-5.20); RED CELL DISTRIBUTION WIDTH 16.7 % (11.5-14.5)
[2020-07-03] MEDS: HEPARIN SODIUM,PORCINE 5,000 UNITS/ML VIAL SQ SCH ×2 (08:00)
[2020-07-03] MEDS ORDERED: MAGNESIUM SULFATE 2 GM/WATER 50 ML IV ONE (08:30)
[2020-07-03] MEDS ORDERED: POTASSIUM CHLORIDE 20 MEQ in SODIUM CHLORIDE 0.45% 1,000 ML IV SCH (08:30)
[2020-07-03] MEDS: ASPIRIN 81 MG CHEWABLE TABLET PO SCH (08:58)
[2020-07-03] MEDS: DULoxetine HCL 30 MG CAPSULE PO SCH (08:59)
[2020-07-03] MEDS: CLOPIDOGREL BISULFATE 75 MG TABLET PO SCH (08:59)
[2020-07-03] MEDS: FOLIC ACID 1 MG TABLET PO SCH (08:59)
[2020-07-03] MEDS: CARVEDILOL 12.5 MG TABLET PO SCH ×2 (08:59→21:27)
[2020-07-03] MEDS: GABAPENTIN 100 MG CAPSULE PO SCH (08:59)
[2020-07-03] MEDS: DOCUSATE SODIUM 100 MG CAPSULE PO SCH (08:59)
[2020-07-03] MEDS: PANTOPRAZOLE SODIUM 40 MG DR TABLET PO SCH (09:00)
[2020-07-03] MEDS: ALLOPURINOL 100 MG TABLET PO SCH (09:00)
[2020-07-03] MEDS ORDERED: SODIUM CHLORIDE 0.9% 1,000 ML ONE ×2 (09:21→10:47)
[2020-07-03] MEDS ORDERED: SODIUM CHLORIDE 0.9% 250 ML IV ONE ×2 (09:28→21:29)
[2020-07-03] MEDS: EPOETIN ALFA 10,000 UNITS/ML VIAL SQ SCH (09:30)
[2020-07-03] MEDS ORDERED: BACITRACIN 28 GM OINTMENT TP ONE (10:47)
[2020-07-03] MEDS ORDERED: MUPIROCIN CALCIUM 2% 22 GM OINTMENT ONE (10:47)
[2020-07-03] MEDS ORDERED: SODIUM CHLORIDE 0.9% 500 ML IV ONE (10:47)
[2020-07-03] MEDS ORDERED: SUGAMMADEX SODIUM 200 MG/2 ML VIAL IVP ONE (10:47)
[2020-07-03] MEDS ORDERED: SODIUM CL IRRIG SOLN BAG 3,000 ML IRRIG ONE (10:48)
[2020-07-03] MEDS ORDERED: BUPIVACAINE HCL/PF 0.25% 30 ML VIAL ONE (10:48)
[2020-07-03] MEDS ORDERED: BACITRACIN 50,000 UNITS/VIAL ONE (10:48)
[2020-07-03] MEDS ORDERED: LIDOCAINE/PF 1% 30 ML VIAL ONE ×2 (10:48→14:02)
[2020-07-03] MEDS ORDERED: SODIUM CHLORIDE 0.9% 1,000 ML IV ONE (11:00)
[2020-07-03] MEDS ORDERED: VANCOMYCIN HCL 1 GM/VIAL ONE (11:05)
[2020-07-03] MEDS ORDERED: MICROFIBRILLAR COLLAGEN 1 GM PACKAGE TP ONE (11:05)
[2020-07-03] MEDS ORDERED: ACETAMINOPHEN 1000 MG/ISO-OSM 100 ML IV ONE (11:10)
[2020-07-03] MEDS ORDERED: BUPIVACAINE LIPOSOME/PF 1.3%-13.3MG/ML SUSPENSION 20 ML VIAL INJ ONE (11:15)
[2020-07-03] MEDS ORDERED: TRANEXAMIC ACID 1,000 MG in DEXTROSE 5%-WATER 50 ML IV ONE (11:15)
[2020-07-03] MEDS ORDERED: BUPIVACAINE HCL/PF 0.5% 30 ML VIAL ONE (11:45)
[2020-07-03] MEDS: SOD FERRIC GLUC COMPLX/SUCROSE 125 MG in SODIUM CHLORIDE 0.9% 100 ML IV SCH (12:00)
[2020-07-03] MEDS ORDERED: FentaNYL CITRATE PF 100 MCG/2 ML VIAL IVP PRN (12:45)
[2020-07-03] MEDS ORDERED: HYDROmorphone 2 MG/ML VIAL IVP PRN (12:45)
[2020-07-03] MEDS ORDERED: MEPERIDINE-PF 25 MG/ML VIAL IVP PRN (12:45)
[2020-07-03] MEDS ORDERED: BUPIVACAINE/EPI/PF 0.5% 30 ML VIAL ONE (13:39)
[2020-07-03] MEDS ORDERED: LIDOCAINE 1%/EPI 1:200,000/PF 30 ML VIAL ONE (13:39)
[2020-07-03] MEDS ORDERED: SODIUM CHLORIDE 0.9% 100 ML ONE (16:03)
[2020-07-03] MEDS ORDERED: FUROSEMIDE 40 MG/4 ML VIAL ONE (16:51)
[2020-07-03 17:17] LABS: GLUCOMETER DEV NAME(LOC) 5N.3; GLUCOSE,POINT OF CARE 173 MG/DL (70-110)
[2020-07-03] MEDS ORDERED: ACETAMINOPHEN 325 MG TABLET PO PRN (17:45)
[2020-07-03] MEDS ORDERED: DOCUSATE SODIUM 250 MG CAPSULE PO PRN (17:45)
[2020-07-03] MEDS ORDERED: MORPHINE SULFATE 4 MG/ML SYRINGE IVP PRN (17:45)
[2020-07-03 20:30] LABS: BASOPHILS % (AUTO) 0.1 % (0.0-2.0); EOSINOPHILS % (AUTO) 0 % (1.0-6.0); HEMATOCRIT 31.7 % (36-46); LYMPHOCYTES # (AUTO) 0.4 K/uL (1.0-4.8); LYMPHOCYTES % (AUTO) 2.9 % (22.0-44.0); MEAN CORPUSCULAR HEMOGLOBIN 27.4 pg (26.0-34.0); MEAN CORPUSCULAR HGB CONC 31.7 G/dL (31.0-37.0); MEAN CORPUSCULAR VOLUME 87 fL (80-100); MONOCYTES # (AUTO) 0.2 K/uL (0.1-1.0); MONOCYTES % (AUTO) 1.4 % (2.0-9.0); NEUTROPHILS # (AUTO) 12.1 K/uL (1.8-7.7); PLATELET COUNT (AUTO) 176 K/uL (150-450); RED BLOOD CELL COUNT(AUTO) 3.66 MIL/uL (4.00-5.20)
[2020-07-03 20:35] LABS: NEUTROPHILS % (AUTO) 95.6 % (40.0-70.0)
[2020-07-03 21:00] LABS: PLATELET MORPHOLOGY COMMENT LARGE PLTS PRESENT
[2020-07-03] MEDS: CeFAZolin 1 GM/DEXTROSE 50 ML IV SCH (21:27)
[2020-07-03] MEDS: OXYGEN THERAPY IH SCH (21:27)
[2020-07-03] MEDS: GABAPENTIN 300 MG CAPSULE PO SCH (21:32)
[2020-07-04] VITALS: BP 130/48
[2020-07-04 04:00] VITALS: BP 121/45
[2020-07-04 05:24] LABS: GLUCOSE,POINT OF CARE 257 MG/DL (70-110)
[2020-07-04] MEDS: CeFAZolin 1 GM/DEXTROSE 50 ML IV SCH ×2 (05:50→12:30)
[2020-07-04 05:57] LABS: CALCIUM, TOTAL 8.7 mg/dL (8.8-10.5); CREATININE 2.44 mg/dL (0.60-1.30); MAGNESIUM 2.4 mg/dL (1.80-2.40); POTASSIUM 4.1 mmol/L (3.5-5.1)
[2020-07-04 06:27] LABS: BASOPHILS % (AUTO) 0.1 % (0.0-2.0); EOSINOPHILS % (AUTO) 0 % (1.0-6.0); HEMATOCRIT 30.5 % (36-46); HEMOGLOBIN 9.7 g/dL (12.0-16.0); LYMPHOCYTES # (AUTO) 0.4 K/uL (1.0-4.8); LYMPHOCYTES % (AUTO) 3.1 % (22.0-44.0); MEAN CORPUSCULAR HEMOGLOBIN 27.7 pg (26.0-34.0); MEAN CORPUSCULAR VOLUME 87 fL (80-100); MONOCYTES # (AUTO) 0.5 K/uL (0.1-1.0); MONOCYTES % (AUTO) 4.3 % (2.0-9.0); NEUTROPHILS # (AUTO) 10.4 K/uL (1.8-7.7); PLATELET COUNT (AUTO) 187 K/uL (150-450); RED BLOOD CELL COUNT(AUTO) 3.51 MIL/uL (4.00-5.20); RED CELL DISTRIBUTION WIDTH 16.7 % (11.5-14.5)
[2020-07-04] MEDS ORDERED: LIDOCAINE/PF 2% 5 ML VIAL IM ONE (06:29)
[2020-07-04] MEDS ORDERED: ROCURONIUM BROMIDE 10 MG/ML 5 ML VIAL IVP ONE (06:29)
[2020-07-04] MEDS ORDERED: FentaNYL CITRATE PF 100 MCG/2 ML VIAL IVP ONE (06:29)
[2020-07-04] MEDS ORDERED: PHENYLEPHRINE HCL 10 MG/ML VIAL IVP ONE (06:29)
[2020-07-04] MEDS ORDERED: MORPHINE SULFATE/PF 0.5 MG/ML 10 ML AMP IVP ONE (06:29)
[2020-07-04] MEDS ORDERED: PROPOFOL 1% 20 ML VIAL IVP ONE (06:29)
[2020-07-04] MEDS ORDERED: ONDANSETRON HCL 4 MG/2 ML VIAL IVP ONE (06:29)
[2020-07-04] MEDS ORDERED: DEXAMETHASONE SOD PHOS 4 MG/ML VIAL IVP ONE (06:29)
[2020-07-04] MEDS ORDERED: MORPHINE SULFATE 4 MG/ML SYRINGE IVP ONE (06:29)
[2020-07-04] MEDS ORDERED: 0.9% SODIUM CHLORIDE 10 ML VIAL IVP ONE (06:29)
[2020-07-04 06:36] LABS: NEUTROPHILS % (AUTO) 92.5 % (40.0-70.0)
[2020-07-04] MEDS: INSULIN LISPRO 100 UNITS/ML SQ PRN ×4 (06:48→20:55)
[2020-07-04 07:00] LABS: PLATELET MORPHOLOGY COMMENT LARGE PLTS PRESENT
[2020-07-04] MEDS: CARVEDILOL 12.5 MG TABLET PO SCH ×2 (08:16→20:47)
[2020-07-04] MEDS: FOLIC ACID 1 MG TABLET PO SCH (08:16)
[2020-07-04] MEDS: GABAPENTIN 300 MG CAPSULE PO SCH ×3 (08:16→20:47)
[2020-07-04] MEDS: OXYGEN THERAPY IH SCH ×2 (08:16→21:38)
[2020-07-04] MEDS: CLOPIDOGREL BISULFATE 75 MG TABLET PO SCH (08:16)
[2020-07-04] MEDS: ALLOPURINOL 100 MG TABLET PO SCH (08:16)
[2020-07-04] MEDS: PANTOPRAZOLE SODIUM 40 MG DR TABLET PO SCH (08:16)
[2020-07-04] MEDS: ASPIRIN 81 MG CHEWABLE TABLET PO SCH (08:16)
[2020-07-04] MEDS: DULoxetine HCL 30 MG CAPSULE PO SCH (08:16)
[2020-07-04 08:41] LABS: GLUCOSE,POINT OF CARE 258 MG/DL (70-110)
[2020-07-04] MEDS: SODIUM CHLORIDE 0.45% 1,000 ML IV SCH ×2 (09:00→23:08)
[2020-07-04] MEDS: HEPARIN SODIUM,PORCINE 5,000 UNITS/ML VIAL SQ SCH ×2 (09:00→20:48)
[2020-07-04 10:35] VITALS: BP 144/54
[2020-07-04] MEDS ORDERED: SODIUM CHLORIDE 0.9% 1,000 ML IV ONE (12:30)
[2020-07-04] MEDS: SOD FERRIC GLUC COMPLX/SUCROSE 125 MG in SODIUM CHLORIDE 0.9% 100 ML IV SCH (13:38)
[2020-07-04 15:24] VITALS: BP 121/75
[2020-07-04] MEDS: HYDROCODONE/ACETAMINOPHEN 5-325 MG TABLET PO PRN ×2 (15:30→23:26)
[2020-07-04] MEDS ORDERED: ENOXAPARIN SODIUM 40 MG/0.4 ML PF SYRINGE SQ SCH (16:00)
[2020-07-04 19:41] VITALS: BP 146/76
[2020-07-05 03:58] LABS: GLUCOMETER DEV NAME(LOC) 5S.2B; GLUCOSE,POINT OF CARE 214 MG/DL (70-110)
[2020-07-05 03:58] LABS: GLUCOMETER DEV NAME(LOC) 5S.2B; GLUCOSE,POINT OF CARE 181 MG/DL (70-110)
[2020-07-05 04:22] VITALS: BP 153/72
[2020-07-05 06:09] LABS: GLUCOMETER DEV NAME(LOC) 5N.3; GLUCOSE,POINT OF CARE 266 MG/DL (70-110)
[2020-07-05] MEDS: INSULIN LISPRO 100 UNITS/ML SQ PRN ×4 (06:17→20:56)
[2020-07-05 07:02] LABS: CALCIUM, TOTAL 8.6 mg/dL (8.8-10.5); CREATININE 2.25 mg/dL (0.60-1.30); MAGNESIUM 2.2 mg/dL (1.80-2.40); POTASSIUM 4.1 mmol/L (3.5-5.1)
[2020-07-05 07:04] VITALS: BP 155/64
[2020-07-05] MEDS: EPOETIN ALFA 10,000 UNITS/ML VIAL SQ SCH (08:20)
[2020-07-05] MEDS: GABAPENTIN 300 MG CAPSULE PO SCH ×3 (08:22→20:40)
[2020-07-05] MEDS: HEPARIN SODIUM,PORCINE 5,000 UNITS/ML VIAL SQ SCH ×2 (08:22→20:40)
[2020-07-05] MEDS: PANTOPRAZOLE SODIUM 40 MG DR TABLET PO SCH (08:22)
[2020-07-05] MEDS: ALLOPURINOL 100 MG TABLET PO SCH (08:22)
[2020-07-05] MEDS: CLOPIDOGREL BISULFATE 75 MG TABLET PO SCH (08:22)
[2020-07-05] MEDS: CARVEDILOL 12.5 MG TABLET PO SCH ×2 (08:22→20:40)
[2020-07-05] MEDS: FOLIC ACID 1 MG TABLET PO SCH (08:22)
[2020-07-05] MEDS: DULoxetine HCL 30 MG CAPSULE PO SCH (08:23)
[2020-07-05] MEDS: OXYGEN THERAPY IH SCH ×2 (08:23→20:58)
[2020-07-05] MEDS: ASPIRIN 81 MG CHEWABLE TABLET PO SCH (08:23)
[2020-07-05] MEDS: HYDROCODONE/ACETAMINOPHEN 5-325 MG TABLET PO PRN (09:20)
[2020-07-05 09:47] LABS: GLUCOMETER DEV NAME(LOC) 5S.2B; GLUCOSE,POINT OF CARE 169 MG/DL (70-110)
[2020-07-05 11:10] VITALS: BP 129/54
[2020-07-05] MEDS: SOD FERRIC GLUC COMPLX/SUCROSE 125 MG in SODIUM CHLORIDE 0.9% 100 ML IV SCH (11:49)
[2020-07-05] MEDS: SODIUM CHLORIDE 0.45% 1,000 ML IV SCH (14:47)
[2020-07-05 14:57] VITALS: BP 133/57
[2020-07-05 19:15] VITALS: BP 129/61
[2020-07-05 23:39] VITALS: BP 135/61
[2020-07-06 00:29] LABS: GLUCOMETER DEV NAME(LOC) 5N.3; GLUCOSE,POINT OF CARE 147 MG/DL (70-110)
[2020-07-06 00:29] LABS: GLUCOMETER DEV NAME(LOC) 5S.2B; GLUCOSE,POINT OF CARE 177 MG/DL (70-110)
[2020-07-06 00:29] LABS: GLUCOMETER DEV NAME(LOC) 5S.2B; GLUCOSE,POINT OF CARE 201 MG/DL (70-110)
[2020-07-06 04:16] VITALS: BP 140/56
[2020-07-06] MEDS: SODIUM CHLORIDE 0.45% 1,000 ML IV SCH (04:17)
[2020-07-06] MEDS: INSULIN LISPRO 100 UNITS/ML SQ PRN ×2 (06:10→11:43)
[2020-07-06 06:24] LABS: CALCIUM, TOTAL 7.8 mg/dL (8.8-10.5); CREATININE 2.14 mg/dL (0.60-1.30); PHOSPHORUS 3.9 mg/dL (2.5-4.9); POTASSIUM 3.5 mmol/L (3.5-5.1)
[2020-07-06 07:14] VITALS: BP 144/69
[2020-07-06] MEDS ORDERED: NYSTATIN 30 GM CREAM TP SCH (09:00)
[2020-07-06] MEDS: OXYGEN THERAPY IH SCH (09:44)
[2020-07-06] MEDS: HEPARIN SODIUM,PORCINE 5,000 UNITS/ML VIAL SQ SCH (09:44)
[2020-07-06] MEDS: DULoxetine HCL 30 MG CAPSULE PO SCH (09:45)
[2020-07-06] MEDS: ASPIRIN 81 MG CHEWABLE TABLET PO SCH (09:45)
[2020-07-06] MEDS: GABAPENTIN 300 MG CAPSULE PO SCH ×2 (09:46→15:45)
[2020-07-06] MEDS: ALLOPURINOL 100 MG TABLET PO SCH (09:46)
[2020-07-06] MEDS: FOLIC ACID 1 MG TABLET PO SCH (09:46)
[2020-07-06] MEDS: CARVEDILOL 12.5 MG TABLET PO SCH (09:46)
[2020-07-06] MEDS: HYDROCODONE/ACETAMINOPHEN 5-325 MG TABLET PO PRN (09:49)
[2020-07-06] MEDS: PANTOPRAZOLE SODIUM 40 MG DR TABLET PO SCH (09:53)
[2020-07-06] MEDS: CLOPIDOGREL BISULFATE 75 MG TABLET PO SCH (09:53)
[2020-07-06] MEDS: SOD FERRIC GLUC COMPLX/SUCROSE 125 MG in SODIUM CHLORIDE 0.9% 100 ML IV SCH (11:04)
[2020-07-06 11:47] VITALS: BP 131/60
[2020-07-06 11:47] LABS: BASOPHILS % (AUTO) 0.1 % (0.0-2.0); EOSINOPHILS % (AUTO) 1.2 % (1.0-6.0); HEMATOCRIT 27.4 % (36-46); HEMOGLOBIN 8.6 g/dL (12.0-16.0); LYMPHOCYTES # (AUTO) 0.9 K/uL (1.0-4.8); LYMPHOCYTES % (AUTO) 9.8 % (22.0-44.0); MEAN CORPUSCULAR HEMOGLOBIN 27.4 pg (26.0-34.0); MEAN CORPUSCULAR HGB CONC 31.4 G/dL (31.0-37.0); MEAN CORPUSCULAR VOLUME 88 fL (80-100); MONOCYTES # (AUTO) 0.9 K/uL (0.1-1.0); MONOCYTES % (AUTO) 9.7 % (2.0-9.0); NEUTROPHILS # (AUTO) 7.4 K/uL (1.8-7.7); NEUTROPHILS % (AUTO) 79.2 % (40.0-70.0); PLATELET COUNT (AUTO) 176 K/uL (150-450); RED BLOOD CELL COUNT(AUTO) 3.13 MIL/uL (4.00-5.20); RED CELL DISTRIBUTION WIDTH 17.2 % (11.5-14.5)
[2020-07-06] MEDS ORDERED: CLOP75TA60 PO (11:56)
[2020-07-06] MEDS ORDERED: HEPA500018 SQ (12:01)
[2020-07-06] MEDS ORDERED: EPOE20002 SQ (12:01)
[2020-07-06] MEDS ORDERED: NYST30CR9 TP (12:07)
[2020-07-06] MEDS ORDERED: ACET-3207 PO (12:17)
[2020-07-06] MEDS ORDERED: AUD NEB (12:19)
[2020-07-06] MEDS ORDERED: BISA10SU11 PR ×2 (12:20→12:29)
[2020-07-06] MEDS ORDERED: DOCU-350 PO (12:21)
[2020-07-06] MEDS ORDERED: HYDR-4061 PO (12:22)
[2020-07-06] MEDS ORDERED: IPRNEB IH (12:26)
[2020-07-06 12:52] LABS: GLUCOMETER DEV NAME(LOC) 5N.3; GLUCOSE,POINT OF CARE 202 MG/DL (70-110)
[2020-07-06 12:52] LABS: GLUCOMETER DEV NAME(LOC) 5N.3; GLUCOSE,POINT OF CARE 166 MG/DL (70-110)
[2020-07-06 16:06] VITALS: BP 132/54
[2020-07-09] MEDS ORDERED: CARV25 PO (13:30)
== END 2020-07-06 15:55 | DRG 480 ==
LOC: EMS 20:32 → UNDOADMIN 23:04 → 6N 23:04 → 5S 23:10 → ICU 07-03 19:35 → 5S 07-04 10:20
PROVIDERS: ADMIT Hospitalist; ATTEND Hospitalist
PROC: 5A09357 Assistance with Respiratory Ventilation, Less than 24 Consecutive Hours, Continuous Positive Airway Pressure (ICD-10-PCS; 2020-07-01)
PROC: 0QS604Z Reposition Right Upper Femur with Internal Fixation Device, Open Approach (ICD-10-PCS; 2020-07-03)
PROC: 5A09357 Assistance with Respiratory Ventilation, Less than 24 Consecutive Hours, Continuous Positive Airway Pressure (ICD-10-PCS; 2020-07-03)
PROC: 30233N1 Transfusion of Nonautologous Red Blood Cells into Peripheral Vein, Percutaneous Approach (ICD-10-PCS; 2020-07-03)
PROC: 0QS804Z Reposition Right Femoral Shaft with Internal Fixation Device, Open Approach (ICD-10-PCS; principal; 2020-07-03 12:00)
PROC: 5A09357 Assistance with Respiratory Ventilation, Less than 24 Consecutive Hours, Continuous Positive Airway Pressure (ICD-10-PCS; 2020-07-04)
PROC: 5A09357 Assistance with Respiratory Ventilation, Less than 24 Consecutive Hours, Continuous Positive Airway Pressure (ICD-10-PCS; 2020-07-05)
PROC: 4B02XSZ Measurement of Cardiac Pacemaker, External Approach (ICD-10-PCS; 2020-07-06)
DX: S72.451A Displaced supracondylar fracture without intracondylar extension of lower end of right femur, initial encounter for closed fracture (principal); I50.33 Acute on chronic diastolic (congestive) heart failure; I13.0 Hypertensive heart and chronic kidney disease with heart failure and stage 1 through stage 4 chronic kidney disease, or unspecified chronic kidney disease; N17.9 Acute kidney failure, unspecified; Z68.41 Body mass index [BMI] 40.0-44.9, adult; N18.4 Chronic kidney disease, stage 4 (severe); E44.0 Moderate protein-calorie malnutrition; M97.01XA Periprosthetic fracture around internal prosthetic right hip joint, initial encounter; I25.10 Atherosclerotic heart disease of native coronary artery without angina pectoris; E11.40 Type 2 diabetes mellitus with diabetic neuropathy, unspecified; E11.22 Type 2 diabetes mellitus with diabetic chronic kidney disease; J44.9 Chronic obstructive pulmonary disease, unspecified; G47.33 Obstructive sleep apnea (adult) (pediatric); E66.01 Morbid (severe) obesity due to excess calories; D64.9 Anemia, unspecified; E11.36 Type 2 diabetes mellitus with diabetic cataract; S72.341A Displaced spiral fracture of shaft of right femur, initial encounter for closed fracture; M10.9 Gout, unspecified; E11.65 Type 2 diabetes mellitus with hyperglycemia; E83.42 Hypomagnesemia; Z96.653 Presence of artificial knee joint, bilateral; Z20.822 Contact with and (suspected) exposure to COVID-19; E78.5 Hyperlipidemia, unspecified; W01.0XXA Fall on same level from slipping, tripping and stumbling without subsequent striking against object, initial encounter; N30.20 Other chronic cystitis without hematuria; Y92.008 Other place in unspecified non-institutional (private) residence as the place of occurrence of the external cause; Y99.8 Other external cause status; Y93.89 Activity, other specified; Z79.899 Other long term (current) drug therapy; Z85.42 Personal history of malignant neoplasm of other parts of uterus; Z90.49 Acquired absence of other specified parts of digestive tract; Z90.710 Acquired absence of both cervix and uterus; Z92.3 Personal history of irradiation; Z87.891 Personal history of nicotine dependence; Z90.89 Acquired absence of other organs; Z79.4 Long term (current) use of insulin; Z95.0 Presence of cardiac pacemaker; Z79.02 Long term (current) use of antithrombotics/antiplatelets; Z95.1 Presence of aortocoronary bypass graft; Z88.2 Allergy status to sulfonamides; Z88.8 Allergy status to other drugs, medicaments and biological substances; Z79.82 Long term (current) use of aspirin
CPT/HCPCS: 73502; 73552; 82570; 83540; 83550; 83735; 84100; 84300; 84540; 86850; 86900; 86901; 86923; 87426; 93005; 93306; 94660; 97112; 97162; 97166; 97530; 97535; 99285; A9575; C9290; G0238; G0378; J0131; J0690; J0885; J1100; J1644; J1940; J2270; J2274; J2370; J2405; J2704; J2916; J3010; J3370; J3475; J3480; J3490; J7030; J7040; J7050; J7060; J7120; P9016; 36415-L1; 36415-TC; 71045-TC; C1716

== ENCOUNTER → 2020-08-29 | Outpatient (CLI) | payer MEDICARE, OTHER ==
[~2020-08-29] MED LIST changes: +ACET-3207 PO; +AUD NEB; +BISA10SU11 PR; -CARV12 PO; +CARV25 PO; -CLON-465 PO; +DOCU-350 PO; +EPOE20002 SQ; -FURO20 PO; +GABA-1181 PO; -GABA-1216 PO; +HEPA500018 SQ; +HYDR-4061 PO; -INSLAN SQ; +IPRNEB IH; +NYST30CR9 TP; -POTA20TA83 PO
== END | disposition home or self-care (01) ==
LOC: RADMN 10:32
PROVIDERS: ATTEND Orthopaedic Surgery Hand Surgery
DX: M19.011 Primary osteoarthritis, right shoulder (principal); M25.811 Other specified joint disorders, right shoulder; M11.211 Other chondrocalcinosis, right shoulder
CPT/HCPCS: 73200

== ENCOUNTER → 2020-09-06 | Outpatient (CLI) | payer MEDICARE, OTHER | END | disposition home or self-care (01) | LOC: SRCNTR 10:11 | PROVIDERS: ATTEND Hospitalist | DX: C55 Malignant neoplasm of uterus, part unspecified (principal); I25.10 Atherosclerotic heart disease of native coronary artery without angina pectoris; N30.40 Irradiation cystitis without hematuria; I12.9 Hypertensive chronic kidney disease with stage 1 through stage 4 chronic kidney disease, or unspecified chronic kidney disease; E11.22 Type 2 diabetes mellitus with diabetic chronic kidney disease; N18.30 Chronic kidney disease, stage 3 unspecified; G62.9 Polyneuropathy, unspecified; H35.30 Unspecified macular degeneration; H26.9 Unspecified cataract; Z95.0 Presence of cardiac pacemaker | CPT/HCPCS: G0463 ==

== ENCOUNTER → 2020-12-13 | Outpatient (CLI) | payer MEDICARE, OTHER ==
[~2020-12-13] VITALS: Ht 154.9 cm; Wt 88.3 kg
[~2020-12-13] MED LIST changes: +DULO30CA89 PO; -DULO30CA96 PO; +FURO80 PO
[2020-12-13 09:56] VITALS: BP 197/80
== END | disposition home or self-care (01) ==
LOC: SRCNTR 09:26
PROVIDERS: ATTEND Hospitalist
DX: C80.1 Malignant (primary) neoplasm, unspecified (principal); I12.9 Hypertensive chronic kidney disease with stage 1 through stage 4 chronic kidney disease, or unspecified chronic kidney disease; E11.22 Type 2 diabetes mellitus with diabetic chronic kidney disease; N18.30 Chronic kidney disease, stage 3 unspecified; I25.10 Atherosclerotic heart disease of native coronary artery without angina pectoris; N30.40 Irradiation cystitis without hematuria; G62.9 Polyneuropathy, unspecified; H35.30 Unspecified macular degeneration; H26.9 Unspecified cataract
CPT/HCPCS: G0463; Z7500

== ENCOUNTER 2021-02-05 19:48 | Inpatient (IN) | payer MEDICARE, OTHER ==
[~2021-02-05] VITALS: Ht 154.9 cm; Wt 88.2 kg
[~2021-02-05 19:48] MED LIST changes: -ACET-3207 PO; -BISA10SU11 PR; -CLOP75TA60 PO; -DOCU-350 PO; -EPOE20002 SQ; -HEPA500018 SQ; -HYDR-4061 PO; -IPRNEB IH; -NYST30CR9 TP; -PANT-31 PO
[2021-02-05] MEDS ORDERED: CloNIDine HCL 0.1 MG TABLET PO ONE (20:15)
[2021-02-05 20:37] LABS: BASOPHILS % (AUTO) 0.6 % (0.0-2.0); EOSINOPHILS % (AUTO) 0.5 % (1.0-6.0); HEMATOCRIT 32.6 % (36-46); HEMOGLOBIN 10.8 g/dL (12.0-16.0); LYMPHOCYTES # (AUTO) 0.9 K/uL (1.0-4.8); LYMPHOCYTES % (AUTO) 8.4 % (22.0-44.0); MEAN CORPUSCULAR HEMOGLOBIN 26.1 pg (26.0-34.0); MEAN CORPUSCULAR HGB CONC 33.2 G/dL (31.0-37.0); MEAN CORPUSCULAR VOLUME 79 fL (80-100); MONOCYTES # (AUTO) 0.5 K/uL (0.1-1.0); MONOCYTES % (AUTO) 5.1 % (2.0-9.0); NEUTROPHILS # (AUTO) 8.8 K/uL (1.8-7.7); PLATELET COUNT (AUTO) 309 K/uL (150-450); RED BLOOD CELL COUNT(AUTO) 4.15 MIL/uL (4.00-5.20); RED CELL DISTRIBUTION WIDTH 16.8 % (11.5-14.5)
[2021-02-05 20:44] LABS: INR 1.1 (0.9-1.1); PROTHROMBIN TIME 11.4 SEC (9.4-11.6)
[2021-02-05 20:47] LABS: ALBUMIN 3.3 g/dL (3.4-5.0); BILIRUBIN,TOTAL 0.5 mg/dL (0.1-1.0); CALCIUM, TOTAL 8.8 mg/dL (8.8-10.5); CREATININE 1.69 mg/dL (0.60-1.30); TOTAL PROTEIN, SERUM 8.1 g/dL (6.4-8.2)
[2021-02-05 20:49] LABS: POTASSIUM 2.8 mmol/L (3.5-5.1)
[2021-02-05] MEDS ORDERED: POTASSIUM CHLORIDE 20 MEQ ER TABLET PO PRN (21:00)
[2021-02-05 21:01] LABS: MAGNESIUM 1.5 mg/dL (1.80-2.40)
[2021-02-05 21:07] LABS: NEUTROPHILS % (AUTO) 85.4 % (40.0-70.0)
[2021-02-05] MEDS ORDERED: ACETAMINOPHEN 500 MG TABLET PO ONE (21:15)
[2021-02-05] MEDS ORDERED: GABAPENTIN 300 MG CAPSULE PO ONE (21:15)
[2021-02-05] MEDS ORDERED: MAGNESIUM SULFATE 2 GM/WATER 50 ML IV ONE (21:30)
[2021-02-05] MEDS ORDERED: DOXYCYCLINE HYCLATE 100 MG TABLET PO ONE (22:00)
[2021-02-05] MEDS ORDERED: FUROSEMIDE 40 MG/4 ML VIAL IVP ONE (22:00)
[2021-02-05] MEDS: POTASSIUM CHL 10 MEQ/WATER 50 ML IV PRN (22:06)
[2021-02-05 22:28] LABS: APPEARANCE,URINE CLOUDY (CLEAR); BILIRUBIN,URINE NEGATIVE (NEGATIVE); GLUCOSE, URINE (UA) NEGATIVE (NEGATIVE); KETONES,URINE NEGATIVE (NEGATIVE); LEUKOCYTE ESTERASE ,URINE MODERATE (NEGATIVE); NITRATE,URINE NEGATIVE (NEGATIVE); OCCULT BLOOD,URINE TRACE (NEGATIVE); PROTEIN,URINE SEE CONFIRM (NEGATIVE)
[2021-02-05] MEDS ORDERED: DEXTROSE 50%-WATER 25 GM/50 ML SYRINGE IVP PRN (22:30)
[2021-02-05] MEDS ORDERED: ONDANSETRON HCL 4 MG/2 ML VIAL IVP PRN (22:30)
[2021-02-05] MEDS ORDERED: POTASSIUM CHLORIDE 10% 40 MEQ/30 ML LIQUID UDCUP PO ONE (22:30)
[2021-02-05] MEDS ORDERED: PIPERACILLIN/TAZO 3.375 GM/D5W 50 ML IV ONE (22:45)
[2021-02-05] MEDS: CARVEDILOL 25 MG TABLET PO SCH (22:48)
[2021-02-05 22:53] LABS: D-DIMER 1.67 mg/L FEU (0.00-0.50)
[2021-02-05 22:57] LABS: SULFOSALICYLIC ACID,URINE 4+ (Negative)
[2021-02-05 22:59] LABS: BACTERIA,URINE Moderate /HPF (None Seen); RBC,URINE 0-2 /HPF (0-2)
[2021-02-05 22:59] LABS: COVID AG,FIA SOURCE NASOPHARYNGEAL
[2021-02-05] MEDS ORDERED: CefTRIAXone 1 GM/DEXTROSE 50 ML IV ONE (23:30)
[2021-02-06] MEDS: HEPARIN SODIUM,PORCINE 5,000 UNITS/ML VIAL SQ SCH ×4 (00:22→23:13)
[2021-02-06] MEDS: POTASSIUM CHL 10 MEQ/WATER 50 ML IV PRN ×2 (00:26→02:53)
[2021-02-06 01:26] LABS: CALCIUM, TOTAL 8.1 mg/dL (8.8-10.5); CREATININE 1.8 mg/dL (0.60-1.30); POTASSIUM 4.6 mmol/L (3.5-5.1)
[2021-02-06 02:55] VITALS: BP 140/72
[2021-02-06] MEDS: HYDROCODONE/ACETAMINOPHEN 5-325 MG TABLET PO PRN ×2 (03:00→11:19)
[2021-02-06 05:02] LABS: GLUCOMETER DEV NAME(LOC) 5S.1; GLUCOSE,POINT OF CARE 169 MG/DL (70-110)
[2021-02-06] MEDS: PIPERACILLIN SODIUM/TAZOBACTAM 2.25 GM in DEXTROSE 5%-WATER 50 ML IV SCH ×4 (05:50→23:14)
[2021-02-06 07:52] VITALS: BP 158/77
[2021-02-06] MEDS ORDERED: CARVEDILOL 25 MG TABLET PO SCH (09:00)
[2021-02-06] MEDS ORDERED: GABAPENTIN 300 MG CAPSULE PO SCH (09:00)
[2021-02-06] MEDS: ASPIRIN 81 MG CHEWABLE TABLET PO SCH (09:32)
[2021-02-06 09:34] LABS: BASOPHILS % (AUTO) 0.7 % (0.0-2.0); EOSINOPHILS % (AUTO) 1.9 % (1.0-6.0); HEMOGLOBIN 9.4 g/dL (12.0-16.0); LYMPHOCYTES # (AUTO) 0.9 K/uL (1.0-4.8); LYMPHOCYTES % (AUTO) 12.2 % (22.0-44.0); MEAN CORPUSCULAR HEMOGLOBIN 25.8 pg (26.0-34.0); MEAN CORPUSCULAR HGB CONC 32.3 G/dL (31.0-37.0); MEAN CORPUSCULAR VOLUME 80 fL (80-100); MONOCYTES # (AUTO) 0.6 K/uL (0.1-1.0); MONOCYTES % (AUTO) 7.7 % (2.0-9.0); NEUTROPHILS # (AUTO) 5.9 K/uL (1.8-7.7); NEUTROPHILS % (AUTO) 77.5 % (40.0-70.0); PLATELET COUNT (AUTO) 252 K/uL (150-450); RED BLOOD CELL COUNT(AUTO) 3.63 MIL/uL (4.00-5.20); RED CELL DISTRIBUTION WIDTH 16.5 % (11.5-14.5)
[2021-02-06] MEDS: FOLIC ACID 1 MG TABLET PO SCH (09:34)
[2021-02-06] MEDS: DULoxetine HCL 30 MG CAPSULE PO SCH (09:35)
[2021-02-06] MEDS: FUROSEMIDE 80 MG TABLET PO SCH (09:35)
[2021-02-06] MEDS: ALLOPURINOL 100 MG TABLET PO SCH (09:36)
[2021-02-06 09:44] LABS: CALCIUM, TOTAL 8.3 mg/dL (8.8-10.5); CREATININE 1.81 mg/dL (0.60-1.30); POTASSIUM 3.8 mmol/L (3.5-5.1)
[2021-02-06] MEDS ORDERED: PENTETATE DTPA TC99M/MCL ISOTOPE 1 EA INJ INJ ONE (11:40)
[2021-02-06 12:00] VITALS: BP 150/66
[2021-02-06] MEDS ORDERED: MAA ALBUMIN AGGREGATED TC99M/UD<10MCL ISOTOPE 1 EA INJ INJ ONE (12:00)
[2021-02-06] MEDS: CARVEDILOL 25 MG TABLET PO SCH ×2 (13:12→19:59)
[2021-02-06] MEDS: INSULIN LISPRO 100 UNITS/ML SQ PRN ×2 (13:15→17:27)
[2021-02-06 13:43] LABS: GLUCOMETER DEV NAME(LOC) 5N.3; GLUCOSE,POINT OF CARE 180 MG/DL (70-110)
[2021-02-06 16:00] VITALS: BP 139/63
[2021-02-06] MEDS: GABAPENTIN 300 MG CAPSULE PO SCH ×2 (16:30→19:59)
[2021-02-06 19:20] VITALS: BP 119/58
[2021-02-06] MEDS: INSULIN GLARGINE,HUM.REC.ANLOG 100 UNITS/ML SQ SCH (19:58)
[2021-02-06 23:17] VITALS: BP 141/62
[2021-02-07 01:25] LABS: GLUCOMETER DEV NAME(LOC) 5N.1C; GLUCOSE,POINT OF CARE 148 MG/DL (70-110)
[2021-02-07 01:25] LABS: GLUCOMETER DEV NAME(LOC) 5S.1; GLUCOSE,POINT OF CARE 159 MG/DL (70-110)
[2021-02-07 03:30] VITALS: BP 158/72
[2021-02-07] MEDS: PIPERACILLIN SODIUM/TAZOBACTAM 2.25 GM in DEXTROSE 5%-WATER 50 ML IV SCH ×4 (05:05→23:02)
[2021-02-07] MEDS: HYDROCODONE/ACETAMINOPHEN 5-325 MG TABLET PO PRN ×4 (05:35→20:51)
[2021-02-07 07:04] VITALS: BP 148/78
[2021-02-07] MEDS: FOLIC ACID 1 MG TABLET PO SCH (08:38)
[2021-02-07] MEDS: FUROSEMIDE 80 MG TABLET PO SCH (08:38)
[2021-02-07] MEDS: HEPARIN SODIUM,PORCINE 5,000 UNITS/ML VIAL SQ SCH ×3 (08:38→23:02)
[2021-02-07] MEDS: GABAPENTIN 300 MG CAPSULE PO SCH ×3 (08:38→19:54)
[2021-02-07] MEDS: DULoxetine HCL 30 MG CAPSULE PO SCH (08:39)
[2021-02-07] MEDS: CARVEDILOL 25 MG TABLET PO SCH ×2 (08:39→19:54)
[2021-02-07] MEDS: ALLOPURINOL 100 MG TABLET PO SCH (08:39)
[2021-02-07] MEDS: ASPIRIN 81 MG CHEWABLE TABLET PO SCH (08:39)
[2021-02-07 11:22] VITALS: BP 138/73
[2021-02-07] MEDS: INSULIN LISPRO 100 UNITS/ML SQ PRN ×2 (12:06→17:11)
[2021-02-07 14:26] LABS: CREATININE,URINE RANDOM 65.4 mg/dL (30.0-125.0)
[2021-02-07 14:54] VITALS: BP 142/78
[2021-02-07 18:27] LABS: GLUCOMETER DEV NAME(LOC) 5N.1C; GLUCOSE,POINT OF CARE 165 MG/DL (70-110)
[2021-02-07 19:30] VITALS: BP 149/65
[2021-02-07 20:44] LABS: GLUCOMETER DEV NAME(LOC) 5S.1; GLUCOSE,POINT OF CARE 184 MG/DL (70-110)
[2021-02-07 20:44] LABS: GLUCOMETER DEV NAME(LOC) 5S.1; GLUCOSE,POINT OF CARE 117 MG/DL (70-110)
[2021-02-07 20:45] LABS: GLUCOMETER DEV NAME(LOC) 5S.1; GLUCOSE,POINT OF CARE 138 MG/DL (70-110)
[2021-02-07] MEDS: INSULIN GLARGINE,HUM.REC.ANLOG 100 UNITS/ML SQ SCH (20:54)
[2021-02-07 23:59] VITALS: BP 139/64
[2021-02-08] VITALS (9 sets, daily range): BP systolic 144–195; BP diastolic 64–93
[2021-02-08] MEDS: PIPERACILLIN SODIUM/TAZOBACTAM 2.25 GM in DEXTROSE 5%-WATER 50 ML IV SCH ×4 (05:53→23:44)
[2021-02-08] MEDS: INSULIN LISPRO 100 UNITS/ML SQ PRN ×4 (05:59→20:57)
[2021-02-08] MEDS: ALLOPURINOL 100 MG TABLET PO SCH (08:23)
[2021-02-08] MEDS: ASPIRIN 81 MG CHEWABLE TABLET PO SCH (08:23)
[2021-02-08] MEDS: HEPARIN SODIUM,PORCINE 5,000 UNITS/ML VIAL SQ SCH ×3 (08:24→23:44)
[2021-02-08] MEDS: DULoxetine HCL 30 MG CAPSULE PO SCH (08:24)
[2021-02-08] MEDS: GABAPENTIN 300 MG CAPSULE PO SCH ×3 (08:24→20:20)
[2021-02-08] MEDS: FOLIC ACID 1 MG TABLET PO SCH (08:24)
[2021-02-08] MEDS: CARVEDILOL 25 MG TABLET PO SCH ×2 (08:24→20:20)
[2021-02-08] MEDS: FUROSEMIDE 80 MG TABLET PO SCH (08:24)
[2021-02-08] MEDS: HYDROCODONE/ACETAMINOPHEN 5-325 MG TABLET PO PRN ×2 (08:30→19:38)
[2021-02-08 12:49] LABS: GLUCOMETER DEV NAME(LOC) 5N.1C; GLUCOSE,POINT OF CARE 150 MG/DL (70-110)
[2021-02-08] MEDS: HydrALAZINE HCL 20 MG/ML VIAL IVP PRN ×2 (17:51→19:38)
[2021-02-08] MEDS: HydrALAZINE HCL 25 MG TABLET PO SCH (20:20)
[2021-02-08] MEDS: INSULIN GLARGINE,HUM.REC.ANLOG 100 UNITS/ML SQ SCH (20:57)
[2021-02-08] MEDS ORDERED: NIFEdipine 30 MG ER TABLET PO ONE (21:00)
[2021-02-08] MEDS: NITROGLYCERIN 2% (1 GM=INCH) PACKET TP SCH (21:10)
[2021-02-09] VITALS (8 sets, daily range): BP systolic 137–164; BP diastolic 54–79
[2021-02-09] MEDS: HYDROCODONE/ACETAMINOPHEN 5-325 MG TABLET PO PRN ×2 (02:00→13:07)
[2021-02-09] MEDS: NITROGLYCERIN 2% (1 GM=INCH) PACKET TP SCH ×3 (02:01→13:04)
[2021-02-09] MEDS: PIPERACILLIN SODIUM/TAZOBACTAM 2.25 GM in DEXTROSE 5%-WATER 50 ML IV SCH ×3 (06:33→17:22)
[2021-02-09] MEDS: INSULIN LISPRO 100 UNITS/ML SQ PRN ×4 (06:38→20:41)
[2021-02-09] MEDS: ASPIRIN 81 MG CHEWABLE TABLET PO SCH (09:26)
[2021-02-09] MEDS: CARVEDILOL 25 MG TABLET PO SCH ×2 (09:26→20:30)
[2021-02-09] MEDS: FUROSEMIDE 80 MG TABLET PO SCH (09:27)
[2021-02-09] MEDS: HydrALAZINE HCL 20 MG/ML VIAL IVP PRN ×2 (09:27→09:36)
[2021-02-09] MEDS: DULoxetine HCL 30 MG CAPSULE PO SCH (09:28)
[2021-02-09] MEDS: ALLOPURINOL 100 MG TABLET PO SCH (09:28)
[2021-02-09] MEDS: FOLIC ACID 1 MG TABLET PO SCH (09:28)
[2021-02-09] MEDS: HEPARIN SODIUM,PORCINE 5,000 UNITS/ML VIAL SQ SCH ×2 (09:28→17:15)
[2021-02-09] MEDS: GABAPENTIN 300 MG CAPSULE PO SCH ×3 (09:28→20:30)
[2021-02-09] MEDS: HydrALAZINE HCL 25 MG TABLET PO SCH ×3 (09:37→20:30)
[2021-02-09] MEDS ORDERED: NIFEdipine 30 MG ER TABLET PO ONE (13:30)
[2021-02-09 15:25] LABS: BASOPHILS % (AUTO) 0.4 % (0.0-2.0); EOSINOPHILS % (AUTO) 1.3 % (1.0-6.0); HEMATOCRIT 28.2 % (36-46); LYMPHOCYTES % (AUTO) 11.9 % (22.0-44.0); MEAN CORPUSCULAR HEMOGLOBIN 25.6 pg (26.0-34.0); MEAN CORPUSCULAR HGB CONC 31.8 G/dL (31.0-37.0); MEAN CORPUSCULAR VOLUME 81 fL (80-100); MONOCYTES # (AUTO) 0.6 K/uL (0.1-1.0); MONOCYTES % (AUTO) 7.7 % (2.0-9.0); NEUTROPHILS # (AUTO) 6.4 K/uL (1.8-7.7); NEUTROPHILS % (AUTO) 78.7 % (40.0-70.0); PLATELET COUNT (AUTO) 243 K/uL (150-450); RED BLOOD CELL COUNT(AUTO) 3.49 MIL/uL (4.00-5.20)
[2021-02-09 15:39] LABS: CALCIUM, TOTAL 8.4 mg/dL (8.8-10.5); CREATININE 1.82 mg/dL (0.60-1.30); POTASSIUM 4.1 mmol/L (3.5-5.1)
[2021-02-09 15:44] LABS: ALBUMIN 2.6 g/dL (3.4-5.0); BILIRUBIN,TOTAL 0.4 mg/dL (0.1-1.0); TOTAL PROTEIN, SERUM 6.8 g/dL (6.4-8.2)
[2021-02-09 20:25] LABS: GLUCOMETER DEV NAME(LOC) 5N.3; GLUCOSE,POINT OF CARE 186 MG/DL (70-110)
[2021-02-09 20:25] LABS: GLUCOMETER DEV NAME(LOC) 5N.3; GLUCOSE,POINT OF CARE 156 MG/DL (70-110)
[2021-02-09 20:25] LABS: GLUCOMETER DEV NAME(LOC) 5N.3; GLUCOSE,POINT OF CARE 188 MG/DL (70-110)
[2021-02-09] MEDS: INSULIN GLARGINE,HUM.REC.ANLOG 100 UNITS/ML SQ SCH (20:42)
[2021-02-09 20:53] LABS: GLUCOMETER DEV NAME(LOC) 5N.3; GLUCOSE,POINT OF CARE 223 MG/DL (70-110)
[2021-02-10] MEDS: HEPARIN SODIUM,PORCINE 5,000 UNITS/ML VIAL SQ SCH ×4 (00:44→23:17)
[2021-02-10] MEDS: PIPERACILLIN SODIUM/TAZOBACTAM 2.25 GM in DEXTROSE 5%-WATER 50 ML IV SCH ×5 (00:44→23:15)
[2021-02-10 04:17] VITALS: BP 154/71
[2021-02-10 06:05] LABS: ALBUMIN 2.4 g/dL (3.4-5.0); BILIRUBIN,TOTAL 0.5 mg/dL (0.1-1.0); CALCIUM, TOTAL 8.1 mg/dL (8.8-10.5); CREATININE 1.77 mg/dL (0.60-1.30); MAGNESIUM 1.7 mg/dL (1.80-2.40); PHOSPHORUS 4.2 mg/dL (2.5-4.9); POTASSIUM 3.2 mmol/L (3.5-5.1); TOTAL PROTEIN, SERUM 6.8 g/dL (6.4-8.2)
[2021-02-10 06:06] LABS: BASOPHILS % (AUTO) 0.7 % (0.0-2.0); EOSINOPHILS % (AUTO) 1.8 % (1.0-6.0); HEMATOCRIT 26.9 % (36-46); HEMOGLOBIN 8.9 g/dL (12.0-16.0); LYMPHOCYTES # (AUTO) 0.8 K/uL (1.0-4.8); LYMPHOCYTES % (AUTO) 10.4 % (22.0-44.0); MEAN CORPUSCULAR HEMOGLOBIN 26.3 pg (26.0-34.0); MEAN CORPUSCULAR HGB CONC 32.9 G/dL (31.0-37.0); MEAN CORPUSCULAR VOLUME 80 fL (80-100); MONOCYTES # (AUTO) 0.5 K/uL (0.1-1.0); MONOCYTES % (AUTO) 6.5 % (2.0-9.0); NEUTROPHILS # (AUTO) 6.5 K/uL (1.8-7.7); NEUTROPHILS % (AUTO) 80.6 % (40.0-70.0); PLATELET COUNT (AUTO) 240 K/uL (150-450); RED BLOOD CELL COUNT(AUTO) 3.37 MIL/uL (4.00-5.20); RED CELL DISTRIBUTION WIDTH 17.2 % (11.5-14.5)
[2021-02-10 07:50] VITALS: BP 149/67
[2021-02-10] MEDS: ALLOPURINOL 100 MG TABLET PO SCH (09:09)
[2021-02-10] MEDS: CARVEDILOL 25 MG TABLET PO SCH ×2 (09:09→20:37)
[2021-02-10] MEDS: GABAPENTIN 300 MG CAPSULE PO SCH ×3 (09:09→20:37)
[2021-02-10] MEDS: FOLIC ACID 1 MG TABLET PO SCH (09:09)
[2021-02-10] MEDS: DULoxetine HCL 30 MG CAPSULE PO SCH (09:09)
[2021-02-10] MEDS: HydrALAZINE HCL 25 MG TABLET PO SCH ×3 (09:09→20:37)
[2021-02-10] MEDS: ASPIRIN 81 MG CHEWABLE TABLET PO SCH (09:10)
[2021-02-10] MEDS: FUROSEMIDE 40 MG TABLET PO SCH (09:10)
[2021-02-10] MEDS: NIFEdipine 30 MG ER TABLET PO SCH (09:11)
[2021-02-10] MEDS ORDERED: POTASSIUM CHLORIDE 20 MEQ ER TABLET PO ONE (11:00)
[2021-02-10 11:26] VITALS: BP 154/57
[2021-02-10] MEDS ORDERED: MAGNESIUM SULFATE 1 GM in DEXTROSE 5%-WATER 50 ML IV ONE (11:45)
[2021-02-10] MEDS: POTASSIUM CHLORIDE 20 MEQ ER TABLET PO SCH ×2 (11:45→20:37)
[2021-02-10] MEDS: HYDROCODONE/ACETAMINOPHEN 5-325 MG TABLET PO PRN ×2 (12:19→21:18)
[2021-02-10] MEDS: INSULIN LISPRO 100 UNITS/ML SQ PRN ×3 (12:21→22:20)
[2021-02-10] MEDS: LOSARTAN POTASSIUM 25 MG TABLET PO SCH (12:27)
[2021-02-10 15:35] VITALS: BP 132/59
[2021-02-10 17:44] LABS: GLUCOMETER DEV NAME(LOC) 5S.1; GLUCOSE,POINT OF CARE 130 MG/DL (70-110)
[2021-02-10 17:44] LABS: GLUCOMETER DEV NAME(LOC) 5S.1; GLUCOSE,POINT OF CARE 180 MG/DL (70-110)
[2021-02-10 19:52] VITALS: BP 129/50
[2021-02-10] MEDS: INSULIN GLARGINE,HUM.REC.ANLOG 100 UNITS/ML SQ SCH (20:37)
[2021-02-11] VITALS (7 sets, daily range): BP systolic 108–134; BP diastolic 42–61
[2021-02-11 05:28] LABS: GLUCOMETER DEV NAME(LOC) 5N.1C; GLUCOSE,POINT OF CARE 154 MG/DL (70-110)
[2021-02-11 05:28] LABS: GLUCOMETER DEV NAME(LOC) 5N.1C; GLUCOSE,POINT OF CARE 163 MG/DL (70-110)
[2021-02-11 05:28] LABS: GLUCOMETER DEV NAME(LOC) 5N.1C; GLUCOSE,POINT OF CARE 165 MG/DL (70-110)
[2021-02-11] MEDS: PIPERACILLIN SODIUM/TAZOBACTAM 2.25 GM in DEXTROSE 5%-WATER 50 ML IV SCH ×3 (05:31→18:29)
[2021-02-11 07:32] LABS: BASOPHILS % (AUTO) 0.5 % (0.0-2.0); EOSINOPHILS % (AUTO) 2.2 % (1.0-6.0); HEMATOCRIT 26.3 % (36-46); HEMOGLOBIN 8.5 g/dL (12.0-16.0); MEAN CORPUSCULAR HEMOGLOBIN 26.1 pg (26.0-34.0); MEAN CORPUSCULAR HGB CONC 32.2 G/dL (31.0-37.0); MEAN CORPUSCULAR VOLUME 81 fL (80-100); MONOCYTES # (AUTO) 0.7 K/uL (0.1-1.0); MONOCYTES % (AUTO) 8.9 % (2.0-9.0); NEUTROPHILS # (AUTO) 6.2 K/uL (1.8-7.7); NEUTROPHILS % (AUTO) 76.4 % (40.0-70.0); PLATELET COUNT (AUTO) 236 K/uL (150-450); RED BLOOD CELL COUNT(AUTO) 3.24 MIL/uL (4.00-5.20); RED CELL DISTRIBUTION WIDTH 17.2 % (11.5-14.5)
[2021-02-11 08:07] LABS: ALBUMIN 2.3 g/dL (3.4-5.0); BILIRUBIN,TOTAL 0.5 mg/dL (0.1-1.0); CALCIUM, TOTAL 8.3 mg/dL (8.8-10.5); CREATININE 2.09 mg/dL (0.60-1.30); MAGNESIUM 2.1 mg/dL (1.80-2.40); POTASSIUM 4.6 mmol/L (3.5-5.1); TOTAL PROTEIN, SERUM 6.7 g/dL (6.4-8.2)
[2021-02-11] MEDS: HydrALAZINE HCL 20 MG/ML VIAL IVP PRN (08:15)
[2021-02-11] MEDS: HEPARIN SODIUM,PORCINE 5,000 UNITS/ML VIAL SQ SCH ×2 (08:15→16:37)
[2021-02-11] MEDS: POTASSIUM CHLORIDE 20 MEQ ER TABLET PO SCH (08:16)
[2021-02-11] MEDS: HYDROCODONE/ACETAMINOPHEN 5-325 MG TABLET PO PRN ×2 (08:16→20:37)
[2021-02-11] MEDS: GABAPENTIN 300 MG CAPSULE PO SCH ×3 (08:17→20:37)
[2021-02-11] MEDS: LOSARTAN POTASSIUM 25 MG TABLET PO SCH (08:17)
[2021-02-11] MEDS: FOLIC ACID 1 MG TABLET PO SCH (08:17)
[2021-02-11] MEDS: NIFEdipine 30 MG ER TABLET PO SCH (08:17)
[2021-02-11] MEDS: ASPIRIN 81 MG CHEWABLE TABLET PO SCH (08:17)
[2021-02-11] MEDS: FUROSEMIDE 40 MG TABLET PO SCH (08:17)
[2021-02-11] MEDS: CARVEDILOL 25 MG TABLET PO SCH ×2 (08:17→20:37)
[2021-02-11] MEDS: DULoxetine HCL 30 MG CAPSULE PO SCH (08:23)
[2021-02-11] MEDS: ALLOPURINOL 100 MG TABLET PO SCH (08:23)
[2021-02-11] MEDS: HydrALAZINE HCL 25 MG TABLET PO SCH ×3 (08:28→20:36)
[2021-02-11] MEDS ORDERED: SODIUM CHLORIDE 0.9% 1,000 ML IV ONE (17:00)
[2021-02-11] MEDS: INSULIN LISPRO 100 UNITS/ML SQ PRN ×2 (18:40→22:19)
[2021-02-11] MEDS: INSULIN GLARGINE,HUM.REC.ANLOG 100 UNITS/ML SQ SCH (20:36)
[2021-02-11 21:41] LABS: GLUCOMETER DEV NAME(LOC) 5S.1; GLUCOSE,POINT OF CARE 160 MG/DL (70-110)
[2021-02-11 21:41] LABS: GLUCOMETER DEV NAME(LOC) 5N.3; GLUCOSE,POINT OF CARE 182 MG/DL (70-110)
[2021-02-11 21:41] LABS: GLUCOMETER DEV NAME(LOC) 5S.1; GLUCOSE,POINT OF CARE 218 MG/DL (70-110)
[2021-02-11 21:41] LABS: GLUCOMETER DEV NAME(LOC) 5N.3; GLUCOSE,POINT OF CARE 129 MG/DL (70-110)
[2021-02-11 21:41] LABS: GLUCOMETER DEV NAME(LOC) 5N.3; GLUCOSE,POINT OF CARE 153 MG/DL (70-110)
[2021-02-12] VITALS (7 sets, daily range): BP systolic 115–141; BP diastolic 52–98
[2021-02-12] MEDS: HEPARIN SODIUM,PORCINE 5,000 UNITS/ML VIAL SQ SCH ×3 (00:12→16:34)
[2021-02-12] MEDS: PIPERACILLIN SODIUM/TAZOBACTAM 2.25 GM in DEXTROSE 5%-WATER 50 ML IV SCH ×4 (00:12→21:09)
[2021-02-12 07:24] LABS: BASOPHILS % (AUTO) 0.8 % (0.0-2.0); EOSINOPHILS % (AUTO) 1.8 % (1.0-6.0); HEMATOCRIT 27.8 % (36-46); LYMPHOCYTES # (AUTO) 0.8 K/uL (1.0-4.8); LYMPHOCYTES % (AUTO) 9.7 % (22.0-44.0); MEAN CORPUSCULAR HEMOGLOBIN 26.1 pg (26.0-34.0); MEAN CORPUSCULAR HGB CONC 32.4 G/dL (31.0-37.0); MEAN CORPUSCULAR VOLUME 81 fL (80-100); MONOCYTES # (AUTO) 0.6 K/uL (0.1-1.0); MONOCYTES % (AUTO) 6.9 % (2.0-9.0); NEUTROPHILS # (AUTO) 6.8 K/uL (1.8-7.7); NEUTROPHILS % (AUTO) 80.8 % (40.0-70.0); PLATELET COUNT (AUTO) 229 K/uL (150-450); RED BLOOD CELL COUNT(AUTO) 3.44 MIL/uL (4.00-5.20); RED CELL DISTRIBUTION WIDTH 17.3 % (11.5-14.5)
[2021-02-12 07:48] LABS: ALBUMIN 2.5 g/dL (3.4-5.0); BILIRUBIN,TOTAL 0.6 mg/dL (0.1-1.0); CALCIUM, TOTAL 8.6 mg/dL (8.8-10.5); CREATININE 2.43 mg/dL (0.60-1.30); MAGNESIUM 2.2 mg/dL (1.80-2.40); POTASSIUM 4.6 mmol/L (3.5-5.1); TOTAL PROTEIN, SERUM 7.2 g/dL (6.4-8.2)
[2021-02-12] MEDS: NIFEdipine 30 MG ER TABLET PO SCH (08:08)
[2021-02-12] MEDS: ASPIRIN 81 MG CHEWABLE TABLET PO SCH (08:09)
[2021-02-12] MEDS: HydrALAZINE HCL 25 MG TABLET PO SCH (08:09)
[2021-02-12] MEDS: DULoxetine HCL 30 MG CAPSULE PO SCH (08:09)
[2021-02-12] MEDS: CARVEDILOL 25 MG TABLET PO SCH ×2 (08:09→21:00)
[2021-02-12] MEDS: ALLOPURINOL 100 MG TABLET PO SCH (08:09)
[2021-02-12] MEDS: FOLIC ACID 1 MG TABLET PO SCH (08:09)
[2021-02-12] MEDS: GABAPENTIN 300 MG CAPSULE PO SCH ×3 (08:09→21:00)
[2021-02-12] MEDS: LOSARTAN POTASSIUM 25 MG TABLET PO SCH (08:09)
[2021-02-12] MEDS: INSULIN LISPRO 100 UNITS/ML SQ PRN ×2 (11:52→17:21)
[2021-02-12] MEDS ORDERED: SODIUM CHLORIDE 0.9% 100 ML ONE (19:55)
[2021-02-12 20:43] LABS: GLUCOMETER DEV NAME(LOC) 5S.1; GLUCOSE,POINT OF CARE 135 MG/DL (70-110)
[2021-02-12 20:43] LABS: GLUCOMETER DEV NAME(LOC) 5S.1; GLUCOSE,POINT OF CARE 189 MG/DL (70-110)
[2021-02-12 20:43] LABS: GLUCOMETER DEV NAME(LOC) 5S.1; GLUCOSE,POINT OF CARE 213 MG/DL (70-110)
[2021-02-12] MEDS: INSULIN GLARGINE,HUM.REC.ANLOG 100 UNITS/ML SQ SCH (21:09)
[2021-02-12 21:25] LABS: CREATININE,URINE RANDOM 39.2 mg/dL (30.0-125.0)
[2021-02-13] MEDS: HEPARIN SODIUM,PORCINE 5,000 UNITS/ML VIAL SQ SCH ×4 (00:06→23:43)
[2021-02-13 01:06] LABS: GLUCOMETER DEV NAME(LOC) 5N.1C; GLUCOSE,POINT OF CARE 143 MG/DL (70-110)
[2021-02-13 04:19] VITALS: BP 144/51
[2021-02-13] MEDS: PIPERACILLIN SODIUM/TAZOBACTAM 2.25 GM in DEXTROSE 5%-WATER 50 ML IV SCH ×3 (06:22→22:14)
[2021-02-13 07:01] LABS: BASOPHILS % (AUTO) 0.6 % (0.0-2.0); EOSINOPHILS % (AUTO) 2.6 % (1.0-6.0); HEMOGLOBIN 8.6 g/dL (12.0-16.0); LYMPHOCYTES % (AUTO) 12.9 % (22.0-44.0); MEAN CORPUSCULAR HEMOGLOBIN 26.2 pg (26.0-34.0); MEAN CORPUSCULAR HGB CONC 31.9 G/dL (31.0-37.0); MEAN CORPUSCULAR VOLUME 82 fL (80-100); MONOCYTES # (AUTO) 0.7 K/uL (0.1-1.0); MONOCYTES % (AUTO) 8.8 % (2.0-9.0); NEUTROPHILS # (AUTO) 5.8 K/uL (1.8-7.7); NEUTROPHILS % (AUTO) 75.1 % (40.0-70.0); PLATELET COUNT (AUTO) 219 K/uL (150-450); RED BLOOD CELL COUNT(AUTO) 3.29 MIL/uL (4.00-5.20); RED CELL DISTRIBUTION WIDTH 17.2 % (11.5-14.5)
[2021-02-13 07:08] LABS: ALBUMIN 2.4 g/dL (3.4-5.0); BILIRUBIN,TOTAL 0.5 mg/dL (0.1-1.0); CALCIUM, TOTAL 8.7 mg/dL (8.8-10.5); CREATININE 2.61 mg/dL (0.60-1.30); MAGNESIUM 2.3 mg/dL (1.80-2.40); POTASSIUM 4.9 mmol/L (3.5-5.1); TOTAL PROTEIN, SERUM 7.1 g/dL (6.4-8.2)
[2021-02-13 08:00] VITALS: BP 103/57
[2021-02-13] MEDS: HYDROCODONE/ACETAMINOPHEN 5-325 MG TABLET PO PRN ×2 (08:09→20:18)
[2021-02-13] MEDS: CARVEDILOL 25 MG TABLET PO SCH ×2 (08:10→20:16)
[2021-02-13] MEDS: ALLOPURINOL 100 MG TABLET PO SCH (08:10)
[2021-02-13] MEDS: FOLIC ACID 1 MG TABLET PO SCH (08:10)
[2021-02-13] MEDS: DULoxetine HCL 30 MG CAPSULE PO SCH (08:10)
[2021-02-13] MEDS: GABAPENTIN 300 MG CAPSULE PO SCH ×3 (08:10→20:16)
[2021-02-13] MEDS: NIFEdipine 30 MG ER TABLET PO SCH (08:11)
[2021-02-13] MEDS: ASPIRIN 81 MG CHEWABLE TABLET PO SCH (08:11)
[2021-02-13] MEDS: INSULIN LISPRO 100 UNITS/ML SQ PRN ×3 (11:27→21:30)
[2021-02-13 12:00] VITALS: BP 113/62
[2021-02-13] MEDS ORDERED: SODIUM CHLORIDE 0.9% 250 ML IV ONE (14:22)
[2021-02-13 16:45] VITALS: BP 137/54
[2021-02-13 18:17] LABS: GLUCOMETER DEV NAME(LOC) 5S.1; GLUCOSE,POINT OF CARE 195 MG/DL (70-110)
[2021-02-13 19:19] VITALS: BP 136/53
[2021-02-13 19:55] LABS: GLUCOMETER DEV NAME(LOC) 5N.1C; GLUCOSE,POINT OF CARE 117 MG/DL (70-110)
[2021-02-13 19:55] LABS: GLUCOMETER DEV NAME(LOC) 5N.1C; GLUCOSE,POINT OF CARE 190 MG/DL (70-110)
[2021-02-13] MEDS: INSULIN GLARGINE,HUM.REC.ANLOG 100 UNITS/ML SQ SCH (21:29)
[2021-02-14 00:05] VITALS: BP 127/58
[2021-02-14 03:50] VITALS: BP 141/58
[2021-02-14] MEDS: PIPERACILLIN SODIUM/TAZOBACTAM 2.25 GM in DEXTROSE 5%-WATER 50 ML IV SCH ×3 (06:03→21:31)
[2021-02-14 07:06] LABS: BASOPHILS % (AUTO) 0.6 % (0.0-2.0); EOSINOPHILS % (AUTO) 2.6 % (1.0-6.0); HEMATOCRIT 26.6 % (36-46); HEMOGLOBIN 8.5 g/dL (12.0-16.0); LYMPHOCYTES # (AUTO) 0.9 K/uL (1.0-4.8); LYMPHOCYTES % (AUTO) 13.5 % (22.0-44.0); MEAN CORPUSCULAR HEMOGLOBIN 26.3 pg (26.0-34.0); MEAN CORPUSCULAR HGB CONC 32.1 G/dL (31.0-37.0); MEAN CORPUSCULAR VOLUME 82 fL (80-100); MONOCYTES # (AUTO) 0.7 K/uL (0.1-1.0); MONOCYTES % (AUTO) 10.5 % (2.0-9.0); NEUTROPHILS # (AUTO) 5.1 K/uL (1.8-7.7); NEUTROPHILS % (AUTO) 72.8 % (40.0-70.0); PLATELET COUNT (AUTO) 220 K/uL (150-450); RED BLOOD CELL COUNT(AUTO) 3.25 MIL/uL (4.00-5.20); RED CELL DISTRIBUTION WIDTH 17.4 % (11.5-14.5)
[2021-02-14 07:37] LABS: ALBUMIN 2.4 g/dL (3.4-5.0); BILIRUBIN,TOTAL 0.5 mg/dL (0.1-1.0); CALCIUM, TOTAL 8.4 mg/dL (8.8-10.5); POTASSIUM 4.7 mmol/L (3.5-5.1); TOTAL PROTEIN, SERUM 7.1 g/dL (6.4-8.2)
[2021-02-14 07:47] LABS: CREATININE 2.47 mg/dL (0.60-1.30)
[2021-02-14 08:09] VITALS: BP 145/52
[2021-02-14] MEDS: GABAPENTIN 300 MG CAPSULE PO SCH ×3 (08:10→21:30)
[2021-02-14] MEDS: ASPIRIN 81 MG CHEWABLE TABLET PO SCH (08:10)
[2021-02-14] MEDS: FOLIC ACID 1 MG TABLET PO SCH (08:10)
[2021-02-14] MEDS: DULoxetine HCL 30 MG CAPSULE PO SCH (08:10)
[2021-02-14] MEDS: CARVEDILOL 25 MG TABLET PO SCH ×2 (08:10→21:30)
[2021-02-14] MEDS: ALLOPURINOL 100 MG TABLET PO SCH (08:11)
[2021-02-14] MEDS: NIFEdipine 30 MG ER TABLET PO SCH (08:12)
[2021-02-14] MEDS: HEPARIN SODIUM,PORCINE 5,000 UNITS/ML VIAL SQ SCH ×2 (09:07→16:24)
[2021-02-14] MEDS: BUMETANIDE 0.25 MG/ML 4 ML VIAL IVP SCH (11:34)
[2021-02-14 11:35] VITALS: BP 137/85
[2021-02-14] MEDS: INSULIN LISPRO 100 UNITS/ML SQ PRN ×2 (11:35→17:15)
[2021-02-14 14:56] LABS: GLUCOMETER DEV NAME(LOC) 5N.1C; GLUCOSE,POINT OF CARE 180 MG/DL (70-110)
[2021-02-14 14:57] LABS: GLUCOMETER DEV NAME(LOC) 5S.1; GLUCOSE,POINT OF CARE 153 MG/DL (70-110)
[2021-02-14 14:57] LABS: GLUCOMETER DEV NAME(LOC) 5S.1; GLUCOSE,POINT OF CARE 121 MG/DL (70-110)
[2021-02-14] MEDS ORDERED: INFLUENZA VIRUS VACCINE QVS 2021-22 (6MO+)/PF 60 MCG/0.5 ML SYRINGE IM. ONE (15:00)
[2021-02-14 15:45] VITALS: BP 135/63
[2021-02-14 20:19] LABS: GLUCOMETER DEV NAME(LOC) 5S.1; GLUCOSE,POINT OF CARE 157 MG/DL (70-110)
[2021-02-14 20:25] VITALS: BP 100/66
[2021-02-14] MEDS: HYDROCODONE/ACETAMINOPHEN 5-325 MG TABLET PO PRN (21:38)
[2021-02-14] MEDS: INSULIN GLARGINE,HUM.REC.ANLOG 100 UNITS/ML SQ SCH (21:40)
[2021-02-15] VITALS (7 sets, daily range): BP systolic 123–162; BP diastolic 49–67
[2021-02-15] MEDS: PIPERACILLIN SODIUM/TAZOBACTAM 2.25 GM in DEXTROSE 5%-WATER 50 ML IV SCH ×3 (05:29→21:26)
[2021-02-15 07:21] LABS: BASOPHILS % (AUTO) 0.6 % (0.0-2.0); EOSINOPHILS % (AUTO) 2.2 % (1.0-6.0); HEMATOCRIT 26.2 % (36-46); HEMOGLOBIN 8.5 g/dL (12.0-16.0); LYMPHOCYTES # (AUTO) 0.6 K/uL (1.0-4.8); LYMPHOCYTES % (AUTO) 8.7 % (22.0-44.0); MEAN CORPUSCULAR HEMOGLOBIN 26.3 pg (26.0-34.0); MEAN CORPUSCULAR HGB CONC 32.3 G/dL (31.0-37.0); MEAN CORPUSCULAR VOLUME 81 fL (80-100); MONOCYTES # (AUTO) 0.6 K/uL (0.1-1.0); MONOCYTES % (AUTO) 9.4 % (2.0-9.0); NEUTROPHILS # (AUTO) 5.1 K/uL (1.8-7.7); NEUTROPHILS % (AUTO) 79.1 % (40.0-70.0); PLATELET COUNT (AUTO) 230 K/uL (150-450); RED BLOOD CELL COUNT(AUTO) 3.22 MIL/uL (4.00-5.20); RED CELL DISTRIBUTION WIDTH 17.5 % (11.5-14.5)
[2021-02-15 07:40] LABS: ALBUMIN 2.4 g/dL (3.4-5.0); BILIRUBIN,TOTAL 0.4 mg/dL (0.1-1.0); CALCIUM, TOTAL 8.1 mg/dL (8.8-10.5); CREATININE 2.23 mg/dL (0.60-1.30); MAGNESIUM 2.4 mg/dL (1.80-2.40); PHOSPHORUS 5.1 mg/dL (2.5-4.9); POTASSIUM 4.2 mmol/L (3.5-5.1); TOTAL PROTEIN, SERUM 7.1 g/dL (6.4-8.2)
[2021-02-15] MEDS: CARVEDILOL 25 MG TABLET PO SCH ×2 (08:14→21:23)
[2021-02-15] MEDS: GABAPENTIN 300 MG CAPSULE PO SCH ×3 (08:14→21:23)
[2021-02-15] MEDS: NIFEdipine 30 MG ER TABLET PO SCH (08:14)
[2021-02-15] MEDS: DULoxetine HCL 30 MG CAPSULE PO SCH (08:15)
[2021-02-15] MEDS: ASPIRIN 81 MG CHEWABLE TABLET PO SCH (08:15)
[2021-02-15] MEDS: BUMETANIDE 0.25 MG/ML 4 ML VIAL IVP SCH (08:15)
[2021-02-15] MEDS: ALLOPURINOL 100 MG TABLET PO SCH (08:15)
[2021-02-15] MEDS: FOLIC ACID 1 MG TABLET PO SCH (08:15)
[2021-02-15] MEDS: HEPARIN SODIUM,PORCINE 5,000 UNITS/ML VIAL SQ SCH ×4 (08:15→23:23)
[2021-02-15] MEDS: HYDROCODONE/ACETAMINOPHEN 5-325 MG TABLET PO PRN ×2 (08:16→21:23)
[2021-02-15] MEDS: INSULIN LISPRO 100 UNITS/ML SQ PRN (12:17)
[2021-02-15 17:38] LABS: GLUCOMETER DEV NAME(LOC) 5S.1; GLUCOSE,POINT OF CARE 207 MG/DL (70-110)
[2021-02-15 20:49] LABS: GLUCOMETER DEV NAME(LOC) 5N.1C; GLUCOSE,POINT OF CARE 206 MG/DL (70-110)
[2021-02-15 20:49] LABS: GLUCOMETER DEV NAME(LOC) 5N.1C; GLUCOSE,POINT OF CARE 136 MG/DL (70-110)
[2021-02-15 20:49] LABS: GLUCOMETER DEV NAME(LOC) 5N.1C; GLUCOSE,POINT OF CARE 129 MG/DL (70-110)
[2021-02-15] MEDS: INSULIN GLARGINE,HUM.REC.ANLOG 100 UNITS/ML SQ SCH (21:25)
[2021-02-15] MEDS ORDERED: SODIUM CHLORIDE 0.9% 250 ML IV ONE (21:31)
[2021-02-15] MEDS ORDERED: 0.9% SODIUM CHLORIDE 5 ML NEB SOLUTION NEB ONE (22:45)
[2021-02-15] MEDS: ALBUTEROL SULFATE 2.5 MG/0.5 ML NEB SOLUTION NEB PRN (22:53)
[2021-02-16 01:32] LABS: GLUCOMETER DEV NAME(LOC) 5S.1; GLUCOSE,POINT OF CARE 185 MG/DL (70-110)
[2021-02-16 04:27] VITALS: BP 156/59
[2021-02-16] MEDS: PIPERACILLIN SODIUM/TAZOBACTAM 2.25 GM in DEXTROSE 5%-WATER 50 ML IV SCH ×3 (06:20→17:46)
[2021-02-16 06:31] LABS: GLUCOMETER DEV NAME(LOC) 5S.1; GLUCOSE,POINT OF CARE 138 MG/DL (70-110)
[2021-02-16 07:10] LABS: BASOPHILS % (AUTO) 0.7 % (0.0-2.0); EOSINOPHILS % (AUTO) 0.6 % (1.0-6.0); HEMATOCRIT 25.4 % (36-46); HEMOGLOBIN 8.2 g/dL (12.0-16.0); LYMPHOCYTES # (AUTO) 0.6 K/uL (1.0-4.8); LYMPHOCYTES % (AUTO) 7.9 % (22.0-44.0); MEAN CORPUSCULAR HEMOGLOBIN 26.4 pg (26.0-34.0); MEAN CORPUSCULAR HGB CONC 32.3 G/dL (31.0-37.0); MEAN CORPUSCULAR VOLUME 82 fL (80-100); MONOCYTES # (AUTO) 0.4 K/uL (0.1-1.0); MONOCYTES % (AUTO) 5.6 % (2.0-9.0); NEUTROPHILS # (AUTO) 6.5 K/uL (1.8-7.7); PLATELET COUNT (AUTO) 219 K/uL (150-450); RED BLOOD CELL COUNT(AUTO) 3.11 MIL/uL (4.00-5.20); RED CELL DISTRIBUTION WIDTH 17.1 % (11.5-14.5)
[2021-02-16 07:11] VITALS: BP 142/99
[2021-02-16 07:36] LABS: ALBUMIN 2.5 g/dL (3.4-5.0); BILIRUBIN,TOTAL 0.4 mg/dL (0.1-1.0); CALCIUM, TOTAL 8.1 mg/dL (8.8-10.5); CREATININE 2.05 mg/dL (0.60-1.30); MAGNESIUM 2.3 mg/dL (1.80-2.40); PHOSPHORUS 4.6 mg/dL (2.5-4.9); POTASSIUM 4.3 mmol/L (3.5-5.1); TOTAL PROTEIN, SERUM 7.2 g/dL (6.4-8.2)
[2021-02-16] MEDS: HEPARIN SODIUM,PORCINE 5,000 UNITS/ML VIAL SQ SCH ×2 (08:00→16:00)
[2021-02-16 08:07] LABS: NEUTROPHILS % (AUTO) 85.2 % (40.0-70.0)
[2021-02-16] MEDS: ASPIRIN 81 MG CHEWABLE TABLET PO SCH (08:31)
[2021-02-16] MEDS: GABAPENTIN 300 MG CAPSULE PO SCH ×3 (08:31→20:20)
[2021-02-16] MEDS: CARVEDILOL 25 MG TABLET PO SCH ×2 (08:31→20:19)
[2021-02-16] MEDS: NIFEdipine 30 MG ER TABLET PO SCH (08:31)
[2021-02-16] MEDS: ALLOPURINOL 100 MG TABLET PO SCH (08:32)
[2021-02-16] MEDS: DULoxetine HCL 30 MG CAPSULE PO SCH (08:32)
[2021-02-16] MEDS: FOLIC ACID 1 MG TABLET PO SCH (08:32)
[2021-02-16] MEDS: BUMETANIDE 0.25 MG/ML 4 ML VIAL IVP SCH (08:33)
[2021-02-16] MEDS: INSULIN LISPRO 100 UNITS/ML SQ PRN ×3 (11:47→20:44)
[2021-02-16 12:29] VITALS: BP 151/64
[2021-02-16] MEDS: EPOETIN ALFA 10,000 UNITS/ML VIAL SQ SCH (15:06)
[2021-02-16 15:18] VITALS: BP 149/68
[2021-02-16 19:23] VITALS: BP 147/64
[2021-02-16] MEDS: INSULIN GLARGINE,HUM.REC.ANLOG 100 UNITS/ML SQ SCH (20:23)
[2021-02-16] MEDS ORDERED: 0.9% SODIUM CHLORIDE 5 ML NEB SOLUTION NEB ONE (20:58)
[2021-02-16] MEDS: ALBUTEROL SULFATE 2.5 MG/0.5 ML NEB SOLUTION NEB PRN (21:02)
[2021-02-16 21:16] LABS: GLUCOMETER DEV NAME(LOC) 5S.1; GLUCOSE,POINT OF CARE 178 MG/DL (70-110)
[2021-02-16 23:51] VITALS: BP 158/62
[2021-02-17] MEDS: PIPERACILLIN SODIUM/TAZOBACTAM 2.25 GM in DEXTROSE 5%-WATER 50 ML IV SCH ×5 (00:14→23:39)
[2021-02-17 04:35] VITALS: BP 158/65
[2021-02-17 06:11] LABS: GLUCOMETER DEV NAME(LOC) 5S.1; GLUCOSE,POINT OF CARE 127 MG/DL (70-110)
[2021-02-17 06:42] LABS: BASOPHILS % (AUTO) 0.5 % (0.0-2.0); EOSINOPHILS % (AUTO) 0.7 % (1.0-6.0); HEMATOCRIT 25.8 % (36-46); HEMOGLOBIN 8.4 g/dL (12.0-16.0); LYMPHOCYTES # (AUTO) 0.6 K/uL (1.0-4.8); LYMPHOCYTES % (AUTO) 7.2 % (22.0-44.0); MEAN CORPUSCULAR HEMOGLOBIN 26.6 pg (26.0-34.0); MEAN CORPUSCULAR HGB CONC 32.5 G/dL (31.0-37.0); MEAN CORPUSCULAR VOLUME 82 fL (80-100); MONOCYTES # (AUTO) 0.6 K/uL (0.1-1.0); MONOCYTES % (AUTO) 6.6 % (2.0-9.0); NEUTROPHILS # (AUTO) 7.6 K/uL (1.8-7.7); PLATELET COUNT (AUTO) 221 K/uL (150-450); RED BLOOD CELL COUNT(AUTO) 3.15 MIL/uL (4.00-5.20); RED CELL DISTRIBUTION WIDTH 17.5 % (11.5-14.5)
[2021-02-17 06:59] LABS: GLUCOMETER DEV NAME(LOC) 5N.1C; GLUCOSE,POINT OF CARE 162 MG/DL (70-110)
[2021-02-17 06:59] LABS: GLUCOMETER DEV NAME(LOC) 5N.1C; GLUCOSE,POINT OF CARE 157 MG/DL (70-110)
[2021-02-17 07:02] LABS: CALCIUM, TOTAL 8.5 mg/dL (8.8-10.5); CREATININE 1.8 mg/dL (0.60-1.30); MAGNESIUM 2.2 mg/dL (1.80-2.40); PHOSPHORUS 3.9 mg/dL (2.5-4.9); POTASSIUM 4.4 mmol/L (3.5-5.1)
[2021-02-17] MEDS: HEPARIN SODIUM,PORCINE 5,000 UNITS/ML VIAL SQ SCH ×4 (08:00→23:39)
[2021-02-17] MEDS: NIFEdipine 30 MG ER TABLET PO SCH (08:18)
[2021-02-17] MEDS: BUMETANIDE 0.25 MG/ML 4 ML VIAL IVP SCH (08:18)
[2021-02-17] MEDS: GABAPENTIN 300 MG CAPSULE PO SCH ×3 (08:19→20:28)
[2021-02-17] MEDS: CARVEDILOL 25 MG TABLET PO SCH ×2 (08:19→20:28)
[2021-02-17] MEDS: ALLOPURINOL 100 MG TABLET PO SCH (08:19)
[2021-02-17] MEDS: FOLIC ACID 1 MG TABLET PO SCH (08:19)
[2021-02-17] MEDS: DULoxetine HCL 30 MG CAPSULE PO SCH (08:19)
[2021-02-17] MEDS: ASPIRIN 81 MG CHEWABLE TABLET PO SCH (08:19)
[2021-02-17 08:29] VITALS: BP 184/89
[2021-02-17] MEDS ORDERED: 0.9% SODIUM CHLORIDE 5 ML NEB SOLUTION NEB ONE ×2 (08:33→19:08)
[2021-02-17] MEDS: ALBUTEROL SULFATE 2.5 MG/0.5 ML NEB SOLUTION NEB PRN (08:38)
[2021-02-17 09:59] VITALS: BP 142/58
[2021-02-17] MEDS ORDERED: BUMETANIDE 0.25 MG/ML 4 ML VIAL IVP ONE ×2 (11:45→19:15)
[2021-02-17 11:56] VITALS: BP 161/73
[2021-02-17 15:59] VITALS: BP 162/72
[2021-02-17] MEDS: INSULIN LISPRO 100 UNITS/ML SQ PRN (17:32)
[2021-02-17] MEDS: ALBUTEROL SULFATE 2.5 MG/0.5 ML NEB SOLUTION NEB SCH (19:17)
[2021-02-17 19:35] VITALS: BP 163/78
[2021-02-17] MEDS: INSULIN GLARGINE,HUM.REC.ANLOG 100 UNITS/ML SQ SCH (20:39)
[2021-02-17] MEDS: HYDROCODONE/ACETAMINOPHEN 5-325 MG TABLET PO PRN (20:49)
[2021-02-17 22:07] LABS: GLUCOMETER DEV NAME(LOC) 5S.1; GLUCOSE,POINT OF CARE 144 MG/DL (70-110)
[2021-02-17 22:07] LABS: GLUCOMETER DEV NAME(LOC) 5S.1; GLUCOSE,POINT OF CARE 180 MG/DL (70-110)
[2021-02-17 22:08] LABS: GLUCOMETER DEV NAME(LOC) 5N.1C; GLUCOSE,POINT OF CARE 165 MG/DL (70-110)
[2021-02-18] VITALS (7 sets, daily range): BP systolic 113–165; BP diastolic 52–83
[2021-02-18] MEDS ORDERED: 0.9% SODIUM CHLORIDE 5 ML NEB SOLUTION NEB ONE ×2 (02:53→19:29)
[2021-02-18] MEDS: ALBUTEROL SULFATE 2.5 MG/0.5 ML NEB SOLUTION NEB SCH ×4 (02:56→20:10)
[2021-02-18] MEDS: PIPERACILLIN SODIUM/TAZOBACTAM 2.25 GM in DEXTROSE 5%-WATER 50 ML IV SCH ×4 (05:00→23:34)
[2021-02-18 06:22] LABS: BASOPHILS % (AUTO) 0.4 % (0.0-2.0); EOSINOPHILS % (AUTO) 0.5 % (1.0-6.0); HEMATOCRIT 24.5 % (36-46); HEMOGLOBIN 7.9 g/dL (12.0-16.0); LYMPHOCYTES # (AUTO) 0.8 K/uL (1.0-4.8); MEAN CORPUSCULAR HEMOGLOBIN 26.6 pg (26.0-34.0); MEAN CORPUSCULAR HGB CONC 32.3 G/dL (31.0-37.0); MEAN CORPUSCULAR VOLUME 82 fL (80-100); MONOCYTES # (AUTO) 0.7 K/uL (0.1-1.0); MONOCYTES % (AUTO) 7.5 % (2.0-9.0); NEUTROPHILS # (AUTO) 7.9 K/uL (1.8-7.7); NEUTROPHILS % (AUTO) 83.6 % (40.0-70.0); PLATELET COUNT (AUTO) 217 K/uL (150-450); RED BLOOD CELL COUNT(AUTO) 2.98 MIL/uL (4.00-5.20); RED CELL DISTRIBUTION WIDTH 17.2 % (11.5-14.5)
[2021-02-18 06:35] LABS: CALCIUM, TOTAL 8.8 mg/dL (8.8-10.5); CREATININE 2.05 mg/dL (0.60-1.30); POTASSIUM 3.8 mmol/L (3.5-5.1)
[2021-02-18] MEDS: BUMETANIDE 0.25 MG/ML 4 ML VIAL IVP SCH (08:43)
[2021-02-18] MEDS: HEPARIN SODIUM,PORCINE 5,000 UNITS/ML VIAL SQ SCH ×3 (08:43→23:34)
[2021-02-18] MEDS: FOLIC ACID 1 MG TABLET PO SCH (08:43)
[2021-02-18] MEDS: ASPIRIN 81 MG CHEWABLE TABLET PO SCH (08:43)
[2021-02-18] MEDS: CARVEDILOL 25 MG TABLET PO SCH ×2 (08:44→20:46)
[2021-02-18] MEDS: DULoxetine HCL 30 MG CAPSULE PO SCH (08:44)
[2021-02-18] MEDS: ALLOPURINOL 100 MG TABLET PO SCH (08:44)
[2021-02-18] MEDS: GABAPENTIN 300 MG CAPSULE PO SCH ×3 (08:44→20:46)
[2021-02-18] MEDS: NIFEdipine 30 MG ER TABLET PO SCH (08:58)
[2021-02-18] MEDS: HYDROCODONE/ACETAMINOPHEN 5-325 MG TABLET PO PRN ×2 (11:20→20:54)
[2021-02-18] MEDS: INSULIN LISPRO 100 UNITS/ML SQ PRN ×3 (12:15→20:49)
[2021-02-18 12:23] LABS: ABG A-A DIFF O2 180.3 mmHg (10-20.0); ABG BASE EXCESS -0.2 mmol/L (-2.0-3.0); ABG CARBOXYHEMOGLOBIN 2.5 % (0.0-1.5); ABG HCO3 24.3 mmol/L (22.0-26.0); ABG METHEMOGLOBIN 0.2 % (0.0-1.5); ABG OXYGEN CONTENT 10.3 mL/dL (15.0-23.0); ABG OXYGEN SATURATION 91.4 % (95.0-98.0); ABG OXYHEMOGLOBIN 88.9 % (94.0-100.0); ABG PCO2 38 mmHg (35-45); ABG PH 7.424 (7.35-7.450); ABG TOTAL HEMOGLOBIN 8.2 G/dL (12.0-18.0); PO2, ARTERIAL BG 61.7 mmHg (75.0-83.0); SOURCE, BLOOD GAS ARTERIAL
[2021-02-18 12:25] LABS: SITE, BLOOD GAS LFT RADIAL
[2021-02-18 12:26] LABS: O2 DEVICE,BLOOD GAS OXYMIZER (ROOM AIR)
[2021-02-18 13:19] LABS: GLUCOMETER DEV NAME(LOC) 5N.1C; GLUCOSE,POINT OF CARE 132 MG/DL (70-110)
[2021-02-18 13:19] LABS: GLUCOMETER DEV NAME(LOC) 5S.1; GLUCOSE,POINT OF CARE 180 MG/DL (70-110)
[2021-02-18 18:46] LABS: GLUCOMETER DEV NAME(LOC) 5N.1C; GLUCOSE,POINT OF CARE 171 MG/DL (70-110)
[2021-02-18] MEDS: BUDESONIDE 0.5 MG/2 ML NEB SOLUTION NEB SCH (20:10)
[2021-02-18] MEDS: INSULIN GLARGINE,HUM.REC.ANLOG 100 UNITS/ML SQ SCH (20:48)
[2021-02-19] MEDS ORDERED: 0.9% SODIUM CHLORIDE 5 ML NEB SOLUTION NEB ONE ×3 (02:16→15:21)
[2021-02-19] MEDS: ALBUTEROL SULFATE 2.5 MG/0.5 ML NEB SOLUTION NEB SCH ×4 (02:44→19:35)
[2021-02-19 03:54] LABS: GLUCOMETER DEV NAME(LOC) 5S.1; GLUCOSE,POINT OF CARE 151 MG/DL (70-110)
[2021-02-19 05:27] VITALS: BP 151/64
[2021-02-19 06:17] LABS: BASOPHILS % (AUTO) 0.5 % (0.0-2.0); EOSINOPHILS % (AUTO) 2.4 % (1.0-6.0); HEMATOCRIT 21.6 % (36-46); LYMPHOCYTES # (AUTO) 0.8 K/uL (1.0-4.8); LYMPHOCYTES % (AUTO) 9.9 % (22.0-44.0); MEAN CORPUSCULAR HEMOGLOBIN 26.7 pg (26.0-34.0); MEAN CORPUSCULAR HGB CONC 32.5 G/dL (31.0-37.0); MEAN CORPUSCULAR VOLUME 82 fL (80-100); MONOCYTES # (AUTO) 0.6 K/uL (0.1-1.0); MONOCYTES % (AUTO) 7.7 % (2.0-9.0); NEUTROPHILS # (AUTO) 6.4 K/uL (1.8-7.7); NEUTROPHILS % (AUTO) 79.5 % (40.0-70.0); PLATELET COUNT (AUTO) 194 K/uL (150-450); RED BLOOD CELL COUNT(AUTO) 2.63 MIL/uL (4.00-5.20); RED CELL DISTRIBUTION WIDTH 17.4 % (11.5-14.5)
[2021-02-19] MEDS: PIPERACILLIN SODIUM/TAZOBACTAM 2.25 GM in DEXTROSE 5%-WATER 50 ML IV SCH ×3 (06:29→16:18)
[2021-02-19 06:54] LABS: CALCIUM, TOTAL 8.9 mg/dL (8.8-10.5); CREATININE 1.9 mg/dL (0.60-1.30); PHOSPHORUS 3.9 mg/dL (2.5-4.9); POTASSIUM 3.5 mmol/L (3.5-5.1)
[2021-02-19 06:58] LABS: ALBUMIN 2.2 g/dL (3.4-5.0); BILIRUBIN,TOTAL 0.6 mg/dL (0.1-1.0); CALCIUM, TOTAL 8.7 mg/dL (8.8-10.5); CREATININE 1.93 mg/dL (0.60-1.30); POTASSIUM 3.5 mmol/L (3.5-5.1)
[2021-02-19 07:01] VITALS: BP 147/60
[2021-02-19] MEDS: GABAPENTIN 300 MG CAPSULE PO SCH ×3 (09:35→20:34)
[2021-02-19] MEDS: NIFEdipine 30 MG ER TABLET PO SCH (09:35)
[2021-02-19] MEDS: DULoxetine HCL 30 MG CAPSULE PO SCH (09:35)
[2021-02-19] MEDS: ASPIRIN 81 MG CHEWABLE TABLET PO SCH (09:35)
[2021-02-19] MEDS: FOLIC ACID 1 MG TABLET PO SCH (09:35)
[2021-02-19] MEDS: CARVEDILOL 25 MG TABLET PO SCH ×2 (09:36→21:00)
[2021-02-19] MEDS: ALLOPURINOL 100 MG TABLET PO SCH (09:36)
[2021-02-19] MEDS: HEPARIN SODIUM,PORCINE 5,000 UNITS/ML VIAL SQ SCH ×2 (09:36→16:00)
[2021-02-19] MEDS: BUMETANIDE 0.25 MG/ML 4 ML VIAL IVP SCH (09:37)
[2021-02-19] MEDS: EPOETIN ALFA 10,000 UNITS/ML VIAL SQ SCH (09:43)
[2021-02-19] MEDS: BUDESONIDE 0.5 MG/2 ML NEB SOLUTION NEB SCH ×2 (09:54→19:35)
[2021-02-19 10:24] LABS: GLUCOMETER DEV NAME(LOC) 5N.1C; GLUCOSE,POINT OF CARE 94 MG/DL (70-110)
[2021-02-19 11:28] VITALS: BP 148/54
[2021-02-19] MEDS: INSULIN LISPRO 100 UNITS/ML SQ PRN ×3 (11:45→20:38)
[2021-02-19 12:20] LABS: GLUCOMETER DEV NAME(LOC) 5S.1; GLUCOSE,POINT OF CARE 187 MG/DL (70-110)
[2021-02-19] MEDS: HYDROCODONE/ACETAMINOPHEN 5-325 MG TABLET PO PRN ×2 (12:38→20:41)
[2021-02-19 15:43] VITALS: BP 140/53
[2021-02-19] MEDS ORDERED: SODIUM CHLORIDE 0.9% 250 ML IV ONE (16:20)
[2021-02-19 18:33] LABS: GLUCOMETER DEV NAME(LOC) 5S.1; GLUCOSE,POINT OF CARE 193 MG/DL (70-110)
[2021-02-19 20:00] VITALS: BP 140/53
[2021-02-19] MEDS: INSULIN GLARGINE,HUM.REC.ANLOG 100 UNITS/ML SQ SCH (20:37)
[2021-02-19 23:30] VITALS: BP 148/58
[2021-02-20] MEDS: HEPARIN SODIUM,PORCINE 5,000 UNITS/ML VIAL SQ SCH ×5 (00:07→23:45)
[2021-02-20] MEDS: PIPERACILLIN SODIUM/TAZOBACTAM 2.25 GM in DEXTROSE 5%-WATER 50 ML IV SCH ×5 (00:07→23:33)
[2021-02-20] MEDS: HYDROCODONE/ACETAMINOPHEN 5-325 MG TABLET PO PRN ×2 (01:48→20:55)
[2021-02-20] MEDS ORDERED: 0.9% SODIUM CHLORIDE 5 ML NEB SOLUTION NEB ONE (02:03)
[2021-02-20] MEDS: ALBUTEROL SULFATE 2.5 MG/0.5 ML NEB SOLUTION NEB SCH ×4 (02:17→19:59)
[2021-02-20 04:30] VITALS: BP 131/54
[2021-02-20 06:45] LABS: BASOPHILS % (AUTO) 0.7 % (0.0-2.0); EOSINOPHILS % (AUTO) 3.8 % (1.0-6.0); HEMATOCRIT 23.1 % (36-46); HEMOGLOBIN 7.4 g/dL (12.0-16.0); LYMPHOCYTES # (AUTO) 0.9 K/uL (1.0-4.8); LYMPHOCYTES % (AUTO) 13.9 % (22.0-44.0); MEAN CORPUSCULAR HEMOGLOBIN 26.6 pg (26.0-34.0); MEAN CORPUSCULAR HGB CONC 32.1 G/dL (31.0-37.0); MEAN CORPUSCULAR VOLUME 83 fL (80-100); MONOCYTES # (AUTO) 0.6 K/uL (0.1-1.0); NEUTROPHILS # (AUTO) 4.5 K/uL (1.8-7.7); NEUTROPHILS % (AUTO) 72.6 % (40.0-70.0); PLATELET COUNT (AUTO) 202 K/uL (150-450); RED CELL DISTRIBUTION WIDTH 17.4 % (11.5-14.5)
[2021-02-20 07:04] LABS: ALBUMIN 2.2 g/dL (3.4-5.0); BILIRUBIN,TOTAL 0.5 mg/dL (0.1-1.0); CALCIUM, TOTAL 8.6 mg/dL (8.8-10.5); POTASSIUM 4.1 mmol/L (3.5-5.1); THYROID STIMULATING HORMONE 6.45 uIU/mL (0.36-3.74); TOTAL PROTEIN, SERUM 7.2 g/dL (6.4-8.2)
[2021-02-20 07:25] VITALS: BP 159/68
[2021-02-20] MEDS: BUDESONIDE 0.5 MG/2 ML NEB SOLUTION NEB SCH ×2 (08:13→19:59)
[2021-02-20] MEDS: BUMETANIDE 0.25 MG/ML 4 ML VIAL IVP SCH ×3 (08:13→20:13)
[2021-02-20] MEDS: DULoxetine HCL 30 MG CAPSULE PO SCH (08:14)
[2021-02-20] MEDS: FOLIC ACID 1 MG TABLET PO SCH (08:14)
[2021-02-20] MEDS: ASPIRIN 81 MG CHEWABLE TABLET PO SCH (08:14)
[2021-02-20] MEDS: GABAPENTIN 300 MG CAPSULE PO SCH ×3 (08:14→20:13)
[2021-02-20] MEDS: NIFEdipine 30 MG ER TABLET PO SCH ×2 (09:00→11:43)
[2021-02-20] MEDS: CARVEDILOL 25 MG TABLET PO SCH ×3 (09:00→20:13)
[2021-02-20] MEDS: ALLOPURINOL 100 MG TABLET PO SCH (09:02)
[2021-02-20 09:07] LABS: INR 1.1 (0.9-1.1); PROTHROMBIN TIME 11.4 SEC (9.4-11.6)
[2021-02-20 11:43] VITALS: BP 153/69
[2021-02-20 12:23] LABS: GLUCOMETER DEV NAME(LOC) 5N.1C; GLUCOSE,POINT OF CARE 152 MG/DL (70-110)
[2021-02-20 14:12] LABS: GLUCOMETER DEV NAME(LOC) 5S.1; GLUCOSE,POINT OF CARE 178 MG/DL (70-110)
[2021-02-20] MEDS: INSULIN LISPRO 100 UNITS/ML SQ PRN ×2 (14:39→17:08)
[2021-02-20 14:52] LABS: GLUCOMETER DEV NAME(LOC) 5S.2B; GLUCOSE,POINT OF CARE 181 MG/DL (70-110)
[2021-02-20 14:52] LABS: GLUCOMETER DEV NAME(LOC) 5S.2B; GLUCOSE,POINT OF CARE 85 MG/DL (70-110)
[2021-02-20 15:06] LABS: SPECIMENTYPE,BODY FLUID PLEURAL
[2021-02-20 15:43] LABS: APPEARANCE,SPUN,BODY FLUID CLEAR (CLEAR); APPEARANCE,UNSPUN,BODY FLUID CLEAR (CLEAR); COLOR,BODY FLUID YELLOW (LT YELLOW); TOTAL VOLUME,BODY FLUID 800 mL
[2021-02-20 15:45] VITALS: BP 143/54
[2021-02-20 15:45] LABS: WBC, BODY FLUID 63 /cu. mm.
[2021-02-20 15:51] LABS: LYMPHOCYTES,BODY FLUID 72 %; MONOCYTES,BODY FLUID 18 %; NEUTROPHILS,BODY FLUID 10 %
[2021-02-20 17:31] LABS: GLUCOMETER DEV NAME(LOC) 5S.1; GLUCOSE,POINT OF CARE 221 MG/DL (70-110)
[2021-02-20 19:33] VITALS: BP 136/55
[2021-02-20] MEDS: INSULIN GLARGINE,HUM.REC.ANLOG 100 UNITS/ML SQ SCH (20:15)
[2021-02-20 23:57] VITALS: BP 140/58
[2021-02-21 02:13] LABS: GLUCOMETER DEV NAME(LOC) 5N.1C; GLUCOSE,POINT OF CARE 139 MG/DL (70-110)
[2021-02-21] MEDS ORDERED: 0.9% SODIUM CHLORIDE 5 ML NEB SOLUTION NEB ONE ×4 (02:59→14:53)
[2021-02-21] MEDS: ALBUTEROL SULFATE 2.5 MG/0.5 ML NEB SOLUTION NEB SCH ×4 (03:00→20:13)
[2021-02-21 05:06] VITALS: BP 132/61
[2021-02-21] MEDS: PIPERACILLIN SODIUM/TAZOBACTAM 2.25 GM in DEXTROSE 5%-WATER 50 ML IV SCH ×3 (05:22→17:17)
[2021-02-21] MEDS: HYDROCODONE/ACETAMINOPHEN 5-325 MG TABLET PO PRN ×3 (06:08→20:00)
[2021-02-21 07:02] LABS: CALCIUM, TOTAL 8.6 mg/dL (8.8-10.5); CREATININE 2.16 mg/dL (0.60-1.30); MAGNESIUM 1.9 mg/dL (1.80-2.40); PHOSPHORUS 4.7 mg/dL (2.5-4.9); POTASSIUM 4.3 mmol/L (3.5-5.1)
[2021-02-21 07:51] VITALS: BP 134/54
[2021-02-21] MEDS: EPOETIN ALFA 10,000 UNITS/ML VIAL SQ SCH (08:14)
[2021-02-21] MEDS: BUMETANIDE 0.25 MG/ML 4 ML VIAL IVP SCH ×3 (08:14→21:26)
[2021-02-21] MEDS: DULoxetine HCL 30 MG CAPSULE PO SCH (08:14)
[2021-02-21] MEDS: ALLOPURINOL 100 MG TABLET PO SCH (08:15)
[2021-02-21] MEDS: CARVEDILOL 25 MG TABLET PO SCH ×2 (08:15→21:26)
[2021-02-21] MEDS: GABAPENTIN 300 MG CAPSULE PO SCH ×3 (08:15→21:26)
[2021-02-21] MEDS: FOLIC ACID 1 MG TABLET PO SCH (08:15)
[2021-02-21] MEDS: HEPARIN SODIUM,PORCINE 5,000 UNITS/ML VIAL SQ SCH ×2 (08:16→16:00)
[2021-02-21] MEDS: NIFEdipine 30 MG ER TABLET PO SCH (08:16)
[2021-02-21] MEDS: ASPIRIN 81 MG CHEWABLE TABLET PO SCH (08:16)
[2021-02-21 08:20] LABS: GLUCOMETER DEV NAME(LOC) 5N.1C; GLUCOSE,POINT OF CARE 86 MG/DL (70-110)
[2021-02-21] MEDS: BUDESONIDE 0.5 MG/2 ML NEB SOLUTION NEB SCH ×2 (08:58→20:13)
[2021-02-21 11:07] VITALS: BP 123/59
[2021-02-21] MEDS: INSULIN LISPRO 100 UNITS/ML SQ PRN ×3 (11:14→21:28)
[2021-02-21 14:48] VITALS: BP 132/72
[2021-02-21 19:30] VITALS: BP 135/70
[2021-02-21 19:56] LABS: GLUCOMETER DEV NAME(LOC) 5N.1C; GLUCOSE,POINT OF CARE 176 MG/DL (70-110)
[2021-02-21 19:56] LABS: GLUCOMETER DEV NAME(LOC) 5N.1C; GLUCOSE,POINT OF CARE 173 MG/DL (70-110)
[2021-02-21] MEDS: INSULIN GLARGINE,HUM.REC.ANLOG 100 UNITS/ML SQ SCH (21:27)
[2021-02-21 21:46] LABS: GLUCOMETER DEV NAME(LOC) 5S.2B; GLUCOSE,POINT OF CARE 193 MG/DL (70-110)
[2021-02-21 23:53] VITALS: BP 129/58
[2021-02-22] VITALS (8 sets, daily range): BP systolic 119–148; BP diastolic 50–80
[2021-02-22] MEDS: PIPERACILLIN SODIUM/TAZOBACTAM 2.25 GM in DEXTROSE 5%-WATER 50 ML IV SCH ×5 (00:21→23:51)
[2021-02-22] MEDS ORDERED: 0.9% SODIUM CHLORIDE 5 ML NEB SOLUTION NEB ONE ×3 (01:54→20:09)
[2021-02-22] MEDS: ALBUTEROL SULFATE 2.5 MG/0.5 ML NEB SOLUTION NEB SCH ×4 (01:57→21:25)
[2021-02-22] MEDS: HYDROCODONE/ACETAMINOPHEN 5-325 MG TABLET PO PRN ×4 (03:04→20:35)
[2021-02-22 06:45] LABS: GLUCOMETER DEV NAME(LOC) 5N.1C; GLUCOSE,POINT OF CARE 109 MG/DL (70-110)
[2021-02-22 07:11] LABS: CALCIUM, TOTAL 8.4 mg/dL (8.8-10.5); CREATININE 2.32 mg/dL (0.60-1.30); POTASSIUM 4.5 mmol/L (3.5-5.1)
[2021-02-22] MEDS: BUDESONIDE 0.5 MG/2 ML NEB SOLUTION NEB SCH ×2 (08:18→21:25)
[2021-02-22] MEDS: HEPARIN SODIUM,PORCINE 5,000 UNITS/ML VIAL SQ SCH ×4 (08:27→23:54)
[2021-02-22] MEDS: ASPIRIN 81 MG CHEWABLE TABLET PO SCH (08:28)
[2021-02-22] MEDS: DULoxetine HCL 30 MG CAPSULE PO SCH (08:28)
[2021-02-22] MEDS: BUMETANIDE 0.25 MG/ML 4 ML VIAL IVP SCH (08:28)
[2021-02-22] MEDS: GABAPENTIN 300 MG CAPSULE PO SCH ×3 (08:29→20:34)
[2021-02-22] MEDS: ALLOPURINOL 100 MG TABLET PO SCH (08:29)
[2021-02-22] MEDS: FOLIC ACID 1 MG TABLET PO SCH (08:29)
[2021-02-22] MEDS: NIFEdipine 30 MG ER TABLET PO SCH (08:29)
[2021-02-22] MEDS: CARVEDILOL 25 MG TABLET PO SCH ×2 (09:00→20:35)
[2021-02-22 12:01] LABS: GLUCOMETER DEV NAME(LOC) 5N.1C; GLUCOSE,POINT OF CARE 127 MG/DL (70-110)
[2021-02-22 14:33] LABS: SPECIMENTYPE,BODY FLUID PLEURAL
[2021-02-22 16:23] LABS: APPEARANCE,SPUN,BODY FLUID CLEAR (CLEAR); APPEARANCE,UNSPUN,BODY FLUID HAZY (CLEAR); BASOPHILS,BODY FLUID 0 %; COLOR,BODY FLUID LT YELLOW (LT YELLOW); EOSINOPHILS,BF (ANAL) 0 %; LYMPHOCYTES,BODY FLUID 81 %; MONOCYTES,BODY FLUID 6 %; NEUTROPHILS,BODY FLUID 11 %; TOTAL VOLUME,BODY FLUID 600 mL; WBC, BODY FLUID 4 /cu. mm.
[2021-02-22 16:25] LABS: OTHER CELLS,BODY FLUID MESOTHELIALS
[2021-02-22 16:26] LABS: PH, BODY FLUID 8
[2021-02-22] MEDS: INSULIN LISPRO 100 UNITS/ML SQ PRN ×2 (17:26→21:18)
[2021-02-22] MEDS: BUMETANIDE 1 MG TABLET PO SCH (20:35)
[2021-02-22] MEDS ORDERED: BUMETANIDE 0.25 MG/ML 4 ML VIAL IVP SCH (21:00)
[2021-02-22] MEDS: INSULIN GLARGINE,HUM.REC.ANLOG 100 UNITS/ML SQ SCH (21:18)
[2021-02-22 21:36] LABS: GLUCOMETER DEV NAME(LOC) 5S.2B; GLUCOSE,POINT OF CARE 178 MG/DL (70-110)
[2021-02-23] MEDS ORDERED: 0.9% SODIUM CHLORIDE 5 ML NEB SOLUTION NEB ONE ×3 (02:17→14:49)
[2021-02-23] MEDS: ALBUTEROL SULFATE 2.5 MG/0.5 ML NEB SOLUTION NEB SCH ×4 (02:43→20:23)
[2021-02-23 04:57] VITALS: BP 145/59
[2021-02-23 05:53] LABS: GLUCOMETER DEV NAME(LOC) 5N.1C; GLUCOSE,POINT OF CARE 180 MG/DL (70-110)
[2021-02-23] MEDS: HYDROCODONE/ACETAMINOPHEN 5-325 MG TABLET PO PRN ×3 (05:53→21:03)
[2021-02-23] MEDS: PIPERACILLIN SODIUM/TAZOBACTAM 2.25 GM in DEXTROSE 5%-WATER 50 ML IV SCH ×3 (05:53→17:08)
[2021-02-23 07:05] LABS: CALCIUM, TOTAL 8.4 mg/dL (8.8-10.5); CREATININE 2.31 mg/dL (0.60-1.30); MAGNESIUM 1.6 mg/dL (1.80-2.40); PHOSPHORUS 4.5 mg/dL (2.5-4.9); POTASSIUM 3.9 mmol/L (3.5-5.1)
[2021-02-23 08:15] VITALS: BP 150/63
[2021-02-23] MEDS: HEPARIN SODIUM,PORCINE 5,000 UNITS/ML VIAL SQ SCH ×3 (08:30→16:28)
[2021-02-23] MEDS: FOLIC ACID 1 MG TABLET PO SCH (08:30)
[2021-02-23] MEDS: GABAPENTIN 300 MG CAPSULE PO SCH ×3 (08:30→21:03)
[2021-02-23] MEDS: ASPIRIN 81 MG CHEWABLE TABLET PO SCH (08:30)
[2021-02-23] MEDS: NIFEdipine 30 MG ER TABLET PO SCH (08:31)
[2021-02-23] MEDS: BUMETANIDE 1 MG TABLET PO SCH ×2 (08:31→21:03)
[2021-02-23] MEDS: CARVEDILOL 25 MG TABLET PO SCH ×2 (08:31→21:03)
[2021-02-23] MEDS: ALLOPURINOL 100 MG TABLET PO SCH (08:31)
[2021-02-23] MEDS: DULoxetine HCL 30 MG CAPSULE PO SCH (08:31)
[2021-02-23] MEDS: EPOETIN ALFA 10,000 UNITS/ML VIAL SQ SCH (08:34)
[2021-02-23] MEDS: BUDESONIDE 0.5 MG/2 ML NEB SOLUTION NEB SCH ×2 (08:40→20:23)
[2021-02-23] MEDS: ATORVASTATIN CALCIUM 20 MG TABLET PO SCH (09:30)
[2021-02-23 11:20] VITALS: BP 122/55
[2021-02-23] MEDS: INSULIN LISPRO 100 UNITS/ML SQ PRN ×3 (12:38→21:01)
[2021-02-23 15:46] VITALS: BP 123/69
[2021-02-23] MEDS ORDERED: MAGNESIUM SULFATE 2 GM/WATER 50 ML IV ONE (16:00)
[2021-02-23 17:19] LABS: GLUCOMETER DEV NAME(LOC) 5S.2B; GLUCOSE,POINT OF CARE 163 MG/DL (70-110)
[2021-02-23 17:19] LABS: GLUCOMETER DEV NAME(LOC) 5S.2B; GLUCOSE,POINT OF CARE 96 MG/DL (70-110)
[2021-02-23 19:36] VITALS: BP 148/54
[2021-02-23] MEDS ORDERED: SODIUM CHLORIDE 0.9% 500 ML IV ONE (20:51)
[2021-02-23] MEDS: INSULIN GLARGINE,HUM.REC.ANLOG 100 UNITS/ML SQ SCH (20:58)
[2021-02-23 21:27] LABS: GLUCOMETER DEV NAME(LOC) 5N.1C; GLUCOSE,POINT OF CARE 150 MG/DL (70-110)
[2021-02-23 21:28] LABS: GLUCOMETER DEV NAME(LOC) 5N.1C; GLUCOSE,POINT OF CARE 188 MG/DL (70-110)
[2021-02-24] VITALS (7 sets, daily range): BP systolic 123–156; BP diastolic 50–66
[2021-02-24] MEDS: PIPERACILLIN SODIUM/TAZOBACTAM 2.25 GM in DEXTROSE 5%-WATER 50 ML IV SCH ×5 (00:30→23:30)
[2021-02-24] MEDS ORDERED: 0.9% SODIUM CHLORIDE 5 ML NEB SOLUTION NEB ONE ×4 (01:06→19:31)
[2021-02-24] MEDS: ALBUTEROL SULFATE 2.5 MG/0.5 ML NEB SOLUTION NEB SCH ×4 (01:10→21:09)
[2021-02-24 06:09] LABS: CALCIUM, TOTAL 8.5 mg/dL (8.8-10.5); CREATININE 2.25 mg/dL (0.60-1.30); POTASSIUM 3.5 mmol/L (3.5-5.1)
[2021-02-24] MEDS: BUDESONIDE 0.5 MG/2 ML NEB SOLUTION NEB SCH ×2 (08:35→21:08)
[2021-02-24] MEDS: FOLIC ACID 1 MG TABLET PO SCH (08:54)
[2021-02-24] MEDS: CARVEDILOL 25 MG TABLET PO SCH ×2 (08:54→20:14)
[2021-02-24] MEDS: NIFEdipine 30 MG ER TABLET PO SCH (08:54)
[2021-02-24] MEDS: GABAPENTIN 300 MG CAPSULE PO SCH ×3 (08:54→20:14)
[2021-02-24] MEDS: HEPARIN SODIUM,PORCINE 5,000 UNITS/ML VIAL SQ SCH ×4 (08:54→23:34)
[2021-02-24] MEDS: ATORVASTATIN CALCIUM 20 MG TABLET PO SCH (08:55)
[2021-02-24] MEDS: ASPIRIN 81 MG CHEWABLE TABLET PO SCH (08:55)
[2021-02-24] MEDS: DULoxetine HCL 30 MG CAPSULE PO SCH (08:55)
[2021-02-24] MEDS: BUMETANIDE 1 MG TABLET PO SCH ×2 (08:55→20:14)
[2021-02-24] MEDS: ALLOPURINOL 100 MG TABLET PO SCH (08:55)
[2021-02-24] MEDS ORDERED: LEVOTHYROXINE SODIUM 25 MCG TABLET PO ONE (10:30)
[2021-02-24 11:05] LABS: BASOPHILS % (AUTO) 0.7 % (0.0-2.0); EOSINOPHILS % (AUTO) 1.7 % (1.0-6.0); HEMATOCRIT 25.1 % (36-46); LYMPHOCYTES # (AUTO) 0.6 K/uL (1.0-4.8); MEAN CORPUSCULAR HEMOGLOBIN 26.7 pg (26.0-34.0); MEAN CORPUSCULAR HGB CONC 31.7 G/dL (31.0-37.0); MEAN CORPUSCULAR VOLUME 84 fL (80-100); MONOCYTES # (AUTO) 0.5 K/uL (0.1-1.0); MONOCYTES % (AUTO) 6.2 % (2.0-9.0); NEUTROPHILS # (AUTO) 6.8 K/uL (1.8-7.7); NEUTROPHILS % (AUTO) 84.4 % (40.0-70.0); PLATELET COUNT (AUTO) 227 K/uL (150-450); RED BLOOD CELL COUNT(AUTO) 2.98 MIL/uL (4.00-5.20); RED CELL DISTRIBUTION WIDTH 17.6 % (11.5-14.5)
[2021-02-24] MEDS: INSULIN LISPRO 100 UNITS/ML SQ PRN ×2 (12:28→17:31)
[2021-02-24 13:53] LABS: GLUCOMETER DEV NAME(LOC) 5S.2B; GLUCOSE,POINT OF CARE 152 MG/DL (70-110)
[2021-02-24 13:53] LABS: GLUCOMETER DEV NAME(LOC) 5N.1C; GLUCOSE,POINT OF CARE 103 MG/DL (70-110)
[2021-02-24 17:34] LABS: GLUCOMETER DEV NAME(LOC) 5N.1C; GLUCOSE,POINT OF CARE 159 MG/DL (70-110)
[2021-02-24] MEDS: HYDROCODONE/ACETAMINOPHEN 5-325 MG TABLET PO PRN (20:32)
[2021-02-24] MEDS: INSULIN GLARGINE,HUM.REC.ANLOG 100 UNITS/ML SQ SCH (21:00)
[2021-02-24 21:41] LABS: GLUCOMETER DEV NAME(LOC) 5S.2B; GLUCOSE,POINT OF CARE 124 MG/DL (70-110)
[2021-02-25] MEDS ORDERED: 0.9% SODIUM CHLORIDE 5 ML NEB SOLUTION NEB ONE ×2 (02:07→19:30)
[2021-02-25] MEDS: ALBUTEROL SULFATE 2.5 MG/0.5 ML NEB SOLUTION NEB SCH ×4 (02:26→21:01)
[2021-02-25 05:10] VITALS: BP 155/75
[2021-02-25] MEDS: PIPERACILLIN SODIUM/TAZOBACTAM 2.25 GM in DEXTROSE 5%-WATER 50 ML IV SCH ×4 (05:24→23:25)
[2021-02-25] MEDS: LEVOTHYROXINE SODIUM 25 MCG TABLET PO SCH (05:24)
[2021-02-25] MEDS: INSULIN LISPRO 100 UNITS/ML SQ PRN ×2 (05:35→17:23)
[2021-02-25 06:35] LABS: BASOPHILS % (AUTO) 0.6 % (0.0-2.0); EOSINOPHILS % (AUTO) 2.2 % (1.0-6.0); HEMATOCRIT 24.4 % (36-46); HEMOGLOBIN 7.8 g/dL (12.0-16.0); LYMPHOCYTES # (AUTO) 0.6 K/uL (1.0-4.8); LYMPHOCYTES % (AUTO) 8.9 % (22.0-44.0); MEAN CORPUSCULAR HEMOGLOBIN 26.8 pg (26.0-34.0); MEAN CORPUSCULAR HGB CONC 31.8 G/dL (31.0-37.0); MEAN CORPUSCULAR VOLUME 84 fL (80-100); MONOCYTES # (AUTO) 0.4 K/uL (0.1-1.0); MONOCYTES % (AUTO) 6.6 % (2.0-9.0); NEUTROPHILS # (AUTO) 5.5 K/uL (1.8-7.7); NEUTROPHILS % (AUTO) 81.7 % (40.0-70.0); PLATELET COUNT (AUTO) 217 K/uL (150-450); RED CELL DISTRIBUTION WIDTH 17.6 % (11.5-14.5)
[2021-02-25 07:00] LABS: CALCIUM, TOTAL 8.4 mg/dL (8.8-10.5); CREATININE 2.14 mg/dL (0.60-1.30); POTASSIUM 3.8 mmol/L (3.5-5.1)
[2021-02-25 07:05] LABS: MAGNESIUM 2.3 mg/dL (1.80-2.40); PHOSPHORUS 4.1 mg/dL (2.5-4.9)
[2021-02-25 07:15] LABS: GLUCOMETER DEV NAME(LOC) 5S.2B; GLUCOSE,POINT OF CARE 199 MG/DL (70-110)
[2021-02-25] MEDS: BUDESONIDE 0.5 MG/2 ML NEB SOLUTION NEB SCH ×2 (08:11→21:01)
[2021-02-25 08:14] VITALS: BP 156/71
[2021-02-25] MEDS: HEPARIN SODIUM,PORCINE 5,000 UNITS/ML VIAL SQ SCH ×4 (08:23→23:22)
[2021-02-25] MEDS: ALLOPURINOL 100 MG TABLET PO SCH (08:23)
[2021-02-25] MEDS: ASPIRIN 81 MG CHEWABLE TABLET PO SCH (08:23)
[2021-02-25] MEDS: BUMETANIDE 1 MG TABLET PO SCH ×2 (08:24→20:24)
[2021-02-25] MEDS: ATORVASTATIN CALCIUM 20 MG TABLET PO SCH (08:24)
[2021-02-25] MEDS: GABAPENTIN 300 MG CAPSULE PO SCH ×3 (08:24→20:24)
[2021-02-25] MEDS: CARVEDILOL 25 MG TABLET PO SCH ×2 (08:25→20:24)
[2021-02-25] MEDS: NIFEdipine 30 MG ER TABLET PO SCH (08:25)
[2021-02-25] MEDS: FOLIC ACID 1 MG TABLET PO SCH (08:25)
[2021-02-25] MEDS: DULoxetine HCL 30 MG CAPSULE PO SCH (08:25)
[2021-02-25] MEDS: HYDROCODONE/ACETAMINOPHEN 5-325 MG TABLET PO PRN ×2 (08:34→20:24)
[2021-02-25] MEDS ORDERED: PERFLUTREN PROTEIN-A MICROSPHERES 0.22 MG/ML 3 ML VIAL IVP ONE (10:30)
[2021-02-25 12:34] VITALS: BP 129/59
[2021-02-25 16:33] VITALS: BP 170/71
[2021-02-25 20:03] LABS: GLUCOMETER DEV NAME(LOC) 5S.2B; GLUCOSE,POINT OF CARE 175 MG/DL (70-110)
[2021-02-25 20:03] LABS: GLUCOMETER DEV NAME(LOC) 5S.2B; GLUCOSE,POINT OF CARE 136 MG/DL (70-110)
[2021-02-25 20:15] VITALS: BP 135/55
[2021-02-25] MEDS: INSULIN GLARGINE,HUM.REC.ANLOG 100 UNITS/ML SQ SCH (20:25)
[2021-02-25 20:47] LABS: GLUCOMETER DEV NAME(LOC) 5N.1C; GLUCOSE,POINT OF CARE 205 MG/DL (70-110)
[2021-02-26] VITALS (19 sets, daily range): BP systolic 143–183; BP diastolic 56–81
[2021-02-26] MEDS ORDERED: 0.9% SODIUM CHLORIDE 5 ML NEB SOLUTION NEB ONE ×3 (01:47→19:52)
[2021-02-26] MEDS: ALBUTEROL SULFATE 2.5 MG/0.5 ML NEB SOLUTION NEB SCH ×4 (01:48→20:54)
[2021-02-26] MEDS: PIPERACILLIN SODIUM/TAZOBACTAM 2.25 GM in DEXTROSE 5%-WATER 50 ML IV SCH ×3 (05:20→17:40)
[2021-02-26] MEDS: LEVOTHYROXINE SODIUM 25 MCG TABLET PO SCH (05:24)
[2021-02-26 06:58] LABS: GLUCOMETER DEV NAME(LOC) 5S.2B; GLUCOSE,POINT OF CARE 137 MG/DL (70-110)
[2021-02-26] MEDS: HEPARIN SODIUM,PORCINE 5,000 UNITS/ML VIAL SQ SCH ×2 (08:00→16:00)
[2021-02-26] MEDS: BUMETANIDE 1 MG TABLET PO SCH ×2 (08:11→20:20)
[2021-02-26] MEDS: NIFEdipine 30 MG ER TABLET PO SCH (08:11)
[2021-02-26] MEDS: CARVEDILOL 25 MG TABLET PO SCH ×2 (08:12→20:27)
[2021-02-26] MEDS: ASPIRIN 81 MG CHEWABLE TABLET PO SCH (09:00)
[2021-02-26] MEDS ORDERED: MIDAZOLAM HCL 2 MG/2 ML VIAL ONE (09:04)
[2021-02-26] MEDS ORDERED: SODIUM BICARBONATE 50 MEQ/50 ML VIAL ONE (09:04)
[2021-02-26] MEDS ORDERED: FUROSEMIDE 40 MG/4 ML VIAL ONE (09:04)
[2021-02-26] MEDS ORDERED: FentaNYL CITRATE PF 100 MCG/2 ML VIAL ONE (09:04)
[2021-02-26] MEDS ORDERED: LIDOCAINE/PF 1% 30 ML VIAL ONE (09:04)
[2021-02-26] MEDS ORDERED: HEPARIN SODIUM 1000 UNITS/NS 500 ML ONE ×2 (09:09)
[2021-02-26] MEDS ORDERED: LIDOCAINE 1% 30 ML/SOD BICARB 8.4% 4 ML SQ ONE (09:30)
[2021-02-26] MEDS ORDERED: SODIUM CHLORIDE 0.9% 500 ML IV ONE (09:30)
[2021-02-26] MEDS ORDERED: HEPARIN SODIUM 1000 UNITS/NS 1,000 ML IARTER ONE (09:30)
[2021-02-26] MEDS ORDERED: FentaNYL CITRATE PF 100 MCG/2 ML VIAL IVP ONE (09:30)
[2021-02-26] MEDS ORDERED: MIDAZOLAM HCL 2 MG/2 ML VIAL IVP ONE (09:30)
[2021-02-26] MEDS ORDERED: BUMETANIDE 0.25 MG/ML 4 ML VIAL ONE (09:47)
[2021-02-26] MEDS: INSULIN LISPRO 100 UNITS/ML SQ PRN ×3 (12:40→20:18)
[2021-02-26] MEDS: ATORVASTATIN CALCIUM 20 MG TABLET PO SCH (12:42)
[2021-02-26] MEDS: GABAPENTIN 300 MG CAPSULE PO SCH ×3 (12:43→20:20)
[2021-02-26] MEDS: FOLIC ACID 1 MG TABLET PO SCH (12:43)
[2021-02-26] MEDS: ALLOPURINOL 100 MG TABLET PO SCH (12:43)
[2021-02-26] MEDS: DULoxetine HCL 30 MG CAPSULE PO SCH (12:44)
[2021-02-26] MEDS: HYDROCODONE/ACETAMINOPHEN 5-325 MG TABLET PO PRN ×2 (12:48→20:20)
[2021-02-26] MEDS: BUDESONIDE 0.5 MG/2 ML NEB SOLUTION NEB SCH ×2 (13:19→20:54)
[2021-02-26] MEDS: EPOETIN ALFA 10,000 UNITS/ML VIAL SQ SCH (14:47)
[2021-02-26] MEDS: INSULIN GLARGINE,HUM.REC.ANLOG 100 UNITS/ML SQ SCH (20:19)
[2021-02-26 20:28] LABS: GLUCOMETER DEV NAME(LOC) 5N.1C; GLUCOSE,POINT OF CARE 189 MG/DL (70-110)
[2021-02-26 20:28] LABS: GLUCOMETER DEV NAME(LOC) 5N.1C; GLUCOSE,POINT OF CARE 194 MG/DL (70-110)
[2021-02-26 21:22] LABS: GLUCOMETER DEV NAME(LOC) 5S.2B; GLUCOSE,POINT OF CARE 204 MG/DL (70-110)
[2021-02-27] VITALS (9 sets, daily range): BP systolic 132–173; BP diastolic 56–94
[2021-02-27] MEDS: PIPERACILLIN SODIUM/TAZOBACTAM 2.25 GM in DEXTROSE 5%-WATER 50 ML IV SCH ×3 (00:21→11:23)
[2021-02-27] MEDS ORDERED: SODIUM CHLORIDE 0.9% 250 ML IV ONE (00:25)
[2021-02-27] MEDS ORDERED: 0.9% SODIUM CHLORIDE 5 ML NEB SOLUTION NEB ONE ×2 (02:29→19:42)
[2021-02-27] MEDS: ALBUTEROL SULFATE 2.5 MG/0.5 ML NEB SOLUTION NEB SCH ×4 (02:33→19:57)
[2021-02-27] MEDS: LEVOTHYROXINE SODIUM 25 MCG TABLET PO SCH (05:31)
[2021-02-27 05:42] LABS: GLUCOMETER DEV NAME(LOC) 5N.3; GLUCOSE,POINT OF CARE 106 MG/DL (70-110)
[2021-02-27 07:50] LABS: BASOPHILS % (AUTO) 0.6 % (0.0-2.0); EOSINOPHILS % (AUTO) 2.5 % (1.0-6.0); HEMATOCRIT 25.3 % (36-46); LYMPHOCYTES # (AUTO) 0.7 K/uL (1.0-4.8); LYMPHOCYTES % (AUTO) 10.2 % (22.0-44.0); MEAN CORPUSCULAR HEMOGLOBIN 26.4 pg (26.0-34.0); MEAN CORPUSCULAR HGB CONC 31.6 G/dL (31.0-37.0); MEAN CORPUSCULAR VOLUME 84 fL (80-100); MONOCYTES # (AUTO) 0.4 K/uL (0.1-1.0); MONOCYTES % (AUTO) 6.1 % (2.0-9.0); NEUTROPHILS # (AUTO) 5.7 K/uL (1.8-7.7); NEUTROPHILS % (AUTO) 80.6 % (40.0-70.0); PLATELET COUNT (AUTO) 225 K/uL (150-450); RED BLOOD CELL COUNT(AUTO) 3.03 MIL/uL (4.00-5.20); RED CELL DISTRIBUTION WIDTH 17.7 % (11.5-14.5)
[2021-02-27 08:09] LABS: ALBUMIN 2.3 g/dL (3.4-5.0); BILIRUBIN,TOTAL 0.6 mg/dL (0.1-1.0); CALCIUM, TOTAL 8.6 mg/dL (8.8-10.5); CREATININE 2.03 mg/dL (0.60-1.30); MAGNESIUM 1.9 mg/dL (1.80-2.40); POTASSIUM 3.5 mmol/L (3.5-5.1); TOTAL PROTEIN, SERUM 7.2 g/dL (6.4-8.2)
[2021-02-27] MEDS: HYDROCODONE/ACETAMINOPHEN 5-325 MG TABLET PO PRN ×2 (09:30→20:59)
[2021-02-27] MEDS: CARVEDILOL 25 MG TABLET PO SCH ×2 (09:30→20:59)
[2021-02-27] MEDS: HEPARIN SODIUM,PORCINE 5,000 UNITS/ML VIAL SQ SCH ×4 (09:30→16:16)
[2021-02-27] MEDS: FOLIC ACID 1 MG TABLET PO SCH (09:30)
[2021-02-27] MEDS: ALLOPURINOL 100 MG TABLET PO SCH (09:30)
[2021-02-27] MEDS: DULoxetine HCL 30 MG CAPSULE PO SCH (09:30)
[2021-02-27] MEDS: NIFEdipine 30 MG ER TABLET PO SCH (09:31)
[2021-02-27] MEDS: ATORVASTATIN CALCIUM 20 MG TABLET PO SCH (09:31)
[2021-02-27] MEDS: GABAPENTIN 300 MG CAPSULE PO SCH ×3 (09:31→20:59)
[2021-02-27] MEDS: ASPIRIN 81 MG CHEWABLE TABLET PO SCH (09:31)
[2021-02-27] MEDS: BUMETANIDE 1 MG TABLET PO SCH ×2 (09:31→20:59)
[2021-02-27] MEDS: BUDESONIDE 0.5 MG/2 ML NEB SOLUTION NEB SCH ×2 (09:48→19:57)
[2021-02-27] MEDS: INSULIN LISPRO 100 UNITS/ML SQ PRN ×3 (12:03→21:11)
[2021-02-27 12:57] LABS: COVID AG,FIA SOURCE NASOPHARYNGEAL
[2021-02-27] MEDS ORDERED: ATOR20TA86 PO (13:42)
[2021-02-27] MEDS ORDERED: BUDE0.5A NEB (13:43)
[2021-02-27] MEDS ORDERED: BUME1TAB34 PO (13:43)
[2021-02-27] MEDS ORDERED: HEPA500018 SQ (13:45)
[2021-02-27] MEDS ORDERED: EPOE10003 SQ (13:45)
[2021-02-27] MEDS ORDERED: LEVO25TA9 PO (13:46)
[2021-02-27] MEDS ORDERED: INSLAN SQ (13:46)
[2021-02-27] MEDS ORDERED: AUD NEB (13:47)
[2021-02-27] MEDS ORDERED: NIFE30TA5 PO (13:47)
[2021-02-27] MEDS ORDERED: HYDR-4723 PO (13:48)
[2021-02-27 19:08] LABS: GLUCOMETER DEV NAME(LOC) 5S.2B; GLUCOSE,POINT OF CARE 179 MG/DL (70-110)
[2021-02-27] MEDS: INSULIN GLARGINE,HUM.REC.ANLOG 100 UNITS/ML SQ SCH (21:07)
[2021-02-27 21:49] LABS: GLUCOMETER DEV NAME(LOC) 5S.1; GLUCOSE,POINT OF CARE 189 MG/DL (70-110)
[2021-02-28 00:11] VITALS: BP 180/70
[2021-02-28] MEDS: HydrALAZINE HCL 20 MG/ML VIAL IVP PRN (00:18)
[2021-02-28 00:40] VITALS: BP 155/71
[2021-02-28] MEDS ORDERED: 0.9% SODIUM CHLORIDE 5 ML NEB SOLUTION NEB ONE ×3 (00:57→19:51)
[2021-02-28] MEDS: ALBUTEROL SULFATE 2.5 MG/0.5 ML NEB SOLUTION NEB SCH ×4 (01:09→20:03)
[2021-02-28 04:49] VITALS: BP 180/65
[2021-02-28] MEDS: ALBUTEROL SULFATE 2.5 MG/0.5 ML NEB SOLUTION NEB PRN (05:10)
[2021-02-28] MEDS: HYDROCODONE/ACETAMINOPHEN 5-325 MG TABLET PO PRN ×2 (05:28→20:31)
[2021-02-28] MEDS: LEVOTHYROXINE SODIUM 25 MCG TABLET PO SCH (05:54)
[2021-02-28 06:17] LABS: GLUCOMETER DEV NAME(LOC) 5S.2B; GLUCOSE,POINT OF CARE 131 MG/DL (70-110)
[2021-02-28 06:17] LABS: GLUCOMETER DEV NAME(LOC) 5N.3; GLUCOSE,POINT OF CARE 158 MG/DL (70-110)
[2021-02-28 06:53] LABS: BASOPHILS % (AUTO) 0.3 % (0.0-2.0); HEMOGLOBIN 8.7 g/dL (12.0-16.0); LYMPHOCYTES # (AUTO) 0.4 K/uL (1.0-4.8); MEAN CORPUSCULAR HEMOGLOBIN 26.1 pg (26.0-34.0); MEAN CORPUSCULAR VOLUME 84 fL (80-100); MONOCYTES # (AUTO) 0.5 K/uL (0.1-1.0); MONOCYTES % (AUTO) 4.5 % (2.0-9.0); PLATELET COUNT (AUTO) 263 K/uL (150-450); RED BLOOD CELL COUNT(AUTO) 3.33 MIL/uL (4.00-5.20); RED CELL DISTRIBUTION WIDTH 18.5 % (11.5-14.5)
[2021-02-28 06:55] LABS: NEUTROPHILS % (AUTO) 90.2 % (40.0-70.0)
[2021-02-28 07:08] LABS: ALBUMIN 2.5 g/dL (3.4-5.0); BILIRUBIN,TOTAL 0.6 mg/dL (0.1-1.0); CALCIUM, TOTAL 8.7 mg/dL (8.8-10.5); CREATININE 1.93 mg/dL (0.60-1.30); POTASSIUM 3.2 mmol/L (3.5-5.1); TOTAL PROTEIN, SERUM 7.6 g/dL (6.4-8.2)
[2021-02-28] MEDS: ATORVASTATIN CALCIUM 20 MG TABLET PO SCH (07:59)
[2021-02-28] MEDS: DULoxetine HCL 30 MG CAPSULE PO SCH (07:59)
[2021-02-28] MEDS: ASPIRIN 81 MG CHEWABLE TABLET PO SCH (07:59)
[2021-02-28] MEDS: HEPARIN SODIUM,PORCINE 5,000 UNITS/ML VIAL SQ SCH ×3 (08:00→15:59)
[2021-02-28] MEDS: BUMETANIDE 1 MG TABLET PO SCH (08:00)
[2021-02-28] MEDS: GABAPENTIN 300 MG CAPSULE PO SCH ×3 (08:00→20:26)
[2021-02-28] MEDS: NIFEdipine 30 MG ER TABLET PO SCH (08:00)
[2021-02-28] MEDS: ALLOPURINOL 100 MG TABLET PO SCH (08:00)
[2021-02-28] MEDS: CARVEDILOL 25 MG TABLET PO SCH ×2 (08:00→20:26)
[2021-02-28] MEDS: FOLIC ACID 1 MG TABLET PO SCH (08:00)
[2021-02-28] MEDS: EPOETIN ALFA 10,000 UNITS/ML VIAL SQ SCH (08:01)
[2021-02-28] MEDS: BUDESONIDE 0.5 MG/2 ML NEB SOLUTION NEB SCH ×2 (08:08→20:03)
[2021-02-28] MEDS ORDERED: ACETAMINOPHEN 650 MG/20.3 ML SOLUTION UDCUP PO PRN (08:45)
[2021-02-28 09:08] VITALS: BP 152/67
[2021-02-28] MEDS: ACETAMINOPHEN 325 MG TABLET PO PRN (09:33)
[2021-02-28] MEDS ORDERED: POTASSIUM CHLORIDE 20 MEQ ER TABLET PO ONE (11:30)
[2021-02-28 13:09] LABS: GLUCOMETER DEV NAME(LOC) 5S.2B; GLUCOSE,POINT OF CARE 110 MG/DL (70-110)
[2021-02-28 16:00] VITALS: BP 108/72
[2021-02-28] MEDS ORDERED: BUMETANIDE 1 MG TABLET PO SCH (16:00)
[2021-02-28] MEDS: INSULIN LISPRO 100 UNITS/ML SQ PRN ×2 (18:05→21:10)
[2021-02-28 19:10] LABS: GLUCOMETER DEV NAME(LOC) 5S.1; GLUCOSE,POINT OF CARE 154 MG/DL (70-110)
[2021-02-28] MEDS ORDERED: METOLAZONE 5 MG TABLET PO ONE (19:30)
[2021-02-28 19:50] VITALS: BP 166/78
[2021-02-28] MEDS: BUMETANIDE 0.25 MG/ML 4 ML VIAL IVP SCH (21:00)
[2021-02-28] MEDS: INSULIN GLARGINE,HUM.REC.ANLOG 100 UNITS/ML SQ SCH (21:11)
[2021-03-01 00:09] VITALS: BP 157/65
[2021-03-01] MEDS ORDERED: 0.9% SODIUM CHLORIDE 5 ML NEB SOLUTION NEB ONE ×2 (01:16→19:36)
[2021-03-01] MEDS: ALBUTEROL SULFATE 2.5 MG/0.5 ML NEB SOLUTION NEB SCH ×4 (03:09→21:31)
[2021-03-01] MEDS: HydrALAZINE HCL 20 MG/ML VIAL IVP PRN (04:38)
[2021-03-01 05:01] VITALS: BP 172/79
[2021-03-01] MEDS: LEVOTHYROXINE SODIUM 25 MCG TABLET PO SCH (05:48)
[2021-03-01 05:54] LABS: GLUCOMETER DEV NAME(LOC) 5N.3; GLUCOSE,POINT OF CARE 162 MG/DL (70-110)
[2021-03-01 06:55] LABS: BASOPHILS % (AUTO) 0.5 % (0.0-2.0); EOSINOPHILS % (AUTO) 1.6 % (1.0-6.0); HEMATOCRIT 29.7 % (36-46); HEMOGLOBIN 9.5 g/dL (12.0-16.0); LYMPHOCYTES # (AUTO) 0.7 K/uL (1.0-4.8); LYMPHOCYTES % (AUTO) 8.6 % (22.0-44.0); MEAN CORPUSCULAR HEMOGLOBIN 26.6 pg (26.0-34.0); MEAN CORPUSCULAR HGB CONC 31.9 G/dL (31.0-37.0); MEAN CORPUSCULAR VOLUME 83 fL (80-100); MONOCYTES # (AUTO) 0.6 K/uL (0.1-1.0); MONOCYTES % (AUTO) 6.7 % (2.0-9.0); NEUTROPHILS # (AUTO) 6.8 K/uL (1.8-7.7); NEUTROPHILS % (AUTO) 82.6 % (40.0-70.0); PLATELET COUNT (AUTO) 278 K/uL (150-450); RED BLOOD CELL COUNT(AUTO) 3.56 MIL/uL (4.00-5.20); RED CELL DISTRIBUTION WIDTH 18.4 % (11.5-14.5)
[2021-03-01 07:08] LABS: ALBUMIN 2.5 g/dL (3.4-5.0); BILIRUBIN,TOTAL 0.6 mg/dL (0.1-1.0); CALCIUM, TOTAL 8.9 mg/dL (8.8-10.5); CREATININE 1.76 mg/dL (0.60-1.30); TOTAL PROTEIN, SERUM 7.6 g/dL (6.4-8.2)
[2021-03-01 07:45] VITALS: BP 153/67
[2021-03-01 07:47] LABS: GLUCOMETER DEV NAME(LOC) 5S.1; GLUCOSE,POINT OF CARE 141 MG/DL (70-110)
[2021-03-01] MEDS: NIFEdipine 30 MG ER TABLET PO SCH (07:54)
[2021-03-01] MEDS: ASPIRIN 81 MG CHEWABLE TABLET PO SCH (07:54)
[2021-03-01] MEDS: GABAPENTIN 300 MG CAPSULE PO SCH ×3 (07:54→20:56)
[2021-03-01] MEDS: CARVEDILOL 25 MG TABLET PO SCH ×2 (07:54→20:56)
[2021-03-01] MEDS: ALLOPURINOL 100 MG TABLET PO SCH (07:55)
[2021-03-01] MEDS: ATORVASTATIN CALCIUM 20 MG TABLET PO SCH (07:55)
[2021-03-01] MEDS: FOLIC ACID 1 MG TABLET PO SCH (07:56)
[2021-03-01] MEDS: DULoxetine HCL 30 MG CAPSULE PO SCH (07:56)
[2021-03-01] MEDS: BUMETANIDE 0.25 MG/ML 4 ML VIAL IVP SCH ×3 (07:57→20:59)
[2021-03-01] MEDS: HYDROCODONE/ACETAMINOPHEN 5-325 MG TABLET PO PRN (07:57)
[2021-03-01] MEDS: HEPARIN SODIUM,PORCINE 5,000 UNITS/ML VIAL SQ SCH ×3 (07:58→15:30)
[2021-03-01] MEDS: BUDESONIDE 0.5 MG/2 ML NEB SOLUTION NEB SCH ×2 (08:04→21:31)
[2021-03-01] MEDS ORDERED: POTASSIUM CHLORIDE 20 MEQ ER TABLET PO ONE (09:00)
[2021-03-01] MEDS: INSULIN LISPRO 100 UNITS/ML SQ PRN ×3 (12:00→20:55)
[2021-03-01 12:42] VITALS: BP 143/64
[2021-03-01 15:00] VITALS: BP 145/65
[2021-03-01] MEDS ORDERED: METOLAZONE 2.5 MG TABLET PO ONE (15:45)
[2021-03-01 17:03] LABS: CALCIUM, TOTAL 8.7 mg/dL (8.8-10.5); CREATININE 1.76 mg/dL (0.60-1.30); MAGNESIUM 1.4 mg/dL (1.80-2.40); PHOSPHORUS 3.2 mg/dL (2.5-4.9); POTASSIUM 3.4 mmol/L (3.5-5.1)
[2021-03-01 17:24] LABS: GLUCOMETER DEV NAME(LOC) 5S.1; GLUCOSE,POINT OF CARE 223 MG/DL (70-110)
[2021-03-01 17:50] LABS: GLUCOMETER DEV NAME(LOC) 5S.1; GLUCOSE,POINT OF CARE 148 MG/DL (70-110)
[2021-03-01 19:48] VITALS: BP 119/70
[2021-03-01] MEDS: INSULIN GLARGINE,HUM.REC.ANLOG 100 UNITS/ML SQ SCH (20:56)
[2021-03-01 20:58] LABS: GLUCOMETER DEV NAME(LOC) 5S.1; GLUCOSE,POINT OF CARE 181 MG/DL (70-110)
[2021-03-02] VITALS (8 sets, daily range): BP systolic 134–167; BP diastolic 58–80
[2021-03-02] MEDS: HEPARIN SODIUM,PORCINE 5,000 UNITS/ML VIAL SQ SCH ×4 (00:35→23:56)
[2021-03-02] MEDS ORDERED: 0.9% SODIUM CHLORIDE 5 ML NEB SOLUTION NEB ONE (01:49)
[2021-03-02] MEDS: ALBUTEROL SULFATE 2.5 MG/0.5 ML NEB SOLUTION NEB SCH ×4 (02:08→20:38)
[2021-03-02 05:37] LABS: GLUCOMETER DEV NAME(LOC) 5S.1; GLUCOSE,POINT OF CARE 100 MG/DL (70-110)
[2021-03-02 06:27] LABS: BASOPHILS % (AUTO) 0.6 % (0.0-2.0); EOSINOPHILS % (AUTO) 1.6 % (1.0-6.0); HEMATOCRIT 25.8 % (36-46); HEMOGLOBIN 8.3 g/dL (12.0-16.0); LYMPHOCYTES # (AUTO) 0.8 K/uL (1.0-4.8); LYMPHOCYTES % (AUTO) 11.5 % (22.0-44.0); MEAN CORPUSCULAR HEMOGLOBIN 26.8 pg (26.0-34.0); MEAN CORPUSCULAR VOLUME 84 fL (80-100); MONOCYTES # (AUTO) 0.6 K/uL (0.1-1.0); MONOCYTES % (AUTO) 7.6 % (2.0-9.0); NEUTROPHILS # (AUTO) 5.7 K/uL (1.8-7.7); NEUTROPHILS % (AUTO) 78.7 % (40.0-70.0); PLATELET COUNT (AUTO) 250 K/uL (150-450); RED BLOOD CELL COUNT(AUTO) 3.09 MIL/uL (4.00-5.20); RED CELL DISTRIBUTION WIDTH 19.1 % (11.5-14.5)
[2021-03-02] MEDS: LEVOTHYROXINE SODIUM 25 MCG TABLET PO SCH (06:33)
[2021-03-02 06:59] LABS: ALBUMIN 2.3 g/dL (3.4-5.0); BILIRUBIN,TOTAL 0.5 mg/dL (0.1-1.0); CALCIUM, TOTAL 8.6 mg/dL (8.8-10.5); CREATININE 1.71 mg/dL (0.60-1.30); MAGNESIUM 1.6 mg/dL (1.80-2.40); PHOSPHORUS 3.7 mg/dL (2.5-4.9); TOTAL PROTEIN, SERUM 6.8 g/dL (6.4-8.2)
[2021-03-02 07:00] LABS: POTASSIUM 2.8 mmol/L (3.5-5.1)
[2021-03-02] MEDS: BUDESONIDE 0.5 MG/2 ML NEB SOLUTION NEB SCH ×2 (07:06→20:38)
[2021-03-02] MEDS ORDERED: MAGNESIUM SULFATE 1 GM in DEXTROSE 5%-WATER 50 ML IV ONE (08:15)
[2021-03-02] MEDS: ATORVASTATIN CALCIUM 20 MG TABLET PO SCH (09:50)
[2021-03-02] MEDS: ASPIRIN 81 MG CHEWABLE TABLET PO SCH (09:50)
[2021-03-02] MEDS: NIFEdipine 30 MG ER TABLET PO SCH ×2 (09:50→21:24)
[2021-03-02] MEDS: GABAPENTIN 300 MG CAPSULE PO SCH ×3 (09:50→21:24)
[2021-03-02] MEDS: CARVEDILOL 25 MG TABLET PO SCH ×2 (09:51→21:24)
[2021-03-02] MEDS: ALLOPURINOL 100 MG TABLET PO SCH (09:51)
[2021-03-02] MEDS: FOLIC ACID 1 MG TABLET PO SCH (09:51)
[2021-03-02] MEDS: DULoxetine HCL 30 MG CAPSULE PO SCH (09:51)
[2021-03-02] MEDS: BUMETANIDE 0.25 MG/ML 4 ML VIAL IVP SCH ×3 (09:52→21:24)
[2021-03-02] MEDS: POTASSIUM CHL 10 MEQ/WATER 50 ML IV SCH ×4 (09:52→15:43)
[2021-03-02] MEDS: EPOETIN ALFA 10,000 UNITS/ML VIAL SQ SCH (09:53)
[2021-03-02] MEDS ORDERED: SODIUM CHLORIDE 0.9% 500 ML IV ONE (10:43)
[2021-03-02] MEDS: HydrALAZINE HCL 20 MG/ML VIAL IVP PRN (11:22)
[2021-03-02] MEDS: ACETAMINOPHEN 325 MG TABLET PO PRN (11:23)
[2021-03-02] MEDS: INSULIN LISPRO 100 UNITS/ML SQ PRN ×3 (12:16→21:25)
[2021-03-02 12:42] LABS: GLUCOMETER DEV NAME(LOC) 5S.2B; GLUCOSE,POINT OF CARE 163 MG/DL (70-110)
[2021-03-02] MEDS: POTASSIUM CHLORIDE 20 MEQ ER TABLET PO SCH (13:38)
[2021-03-02 20:40] LABS: GLUCOMETER DEV NAME(LOC) 5S.1; GLUCOSE,POINT OF CARE 194 MG/DL (70-110)
[2021-03-02 20:40] LABS: GLUCOMETER DEV NAME(LOC) 5S.1; GLUCOSE,POINT OF CARE 241 MG/DL (70-110)
[2021-03-02] MEDS: HYDROCODONE/ACETAMINOPHEN 5-325 MG TABLET PO PRN (21:23)
[2021-03-02] MEDS: INSULIN GLARGINE,HUM.REC.ANLOG 100 UNITS/ML SQ SCH (21:25)
[2021-03-03] MEDS ORDERED: 0.9% SODIUM CHLORIDE 5 ML NEB SOLUTION NEB ONE ×4 (01:56→20:11)
[2021-03-03] MEDS: ALBUTEROL SULFATE 2.5 MG/0.5 ML NEB SOLUTION NEB SCH ×4 (02:01→20:56)
[2021-03-03 05:34] VITALS: BP 150/61
[2021-03-03 06:27] LABS: GLUCOMETER DEV NAME(LOC) 5S.1; GLUCOSE,POINT OF CARE 131 MG/DL (70-110)
[2021-03-03] MEDS: LEVOTHYROXINE SODIUM 25 MCG TABLET PO SCH (06:30)
[2021-03-03 06:50] LABS: BASOPHILS % (AUTO) 0.5 % (0.0-2.0); EOSINOPHILS % (AUTO) 2.4 % (1.0-6.0); HEMOGLOBIN 9.2 g/dL (12.0-16.0); LYMPHOCYTES # (AUTO) 0.9 K/uL (1.0-4.8); LYMPHOCYTES % (AUTO) 11.1 % (22.0-44.0); MEAN CORPUSCULAR HEMOGLOBIN 26.4 pg (26.0-34.0); MEAN CORPUSCULAR HGB CONC 31.7 G/dL (31.0-37.0); MEAN CORPUSCULAR VOLUME 83 fL (80-100); MONOCYTES # (AUTO) 0.6 K/uL (0.1-1.0); MONOCYTES % (AUTO) 7.2 % (2.0-9.0); NEUTROPHILS # (AUTO) 6.1 K/uL (1.8-7.7); NEUTROPHILS % (AUTO) 78.8 % (40.0-70.0); PLATELET COUNT (AUTO) 277 K/uL (150-450); RED BLOOD CELL COUNT(AUTO) 3.49 MIL/uL (4.00-5.20); RED CELL DISTRIBUTION WIDTH 18.7 % (11.5-14.5)
[2021-03-03 07:02] LABS: POTASSIUM 3.6 mmol/L (3.5-5.1)
[2021-03-03 07:03] LABS: ALBUMIN 2.5 g/dL (3.4-5.0); BILIRUBIN,TOTAL 0.6 mg/dL (0.1-1.0); CALCIUM, TOTAL 8.9 mg/dL (8.8-10.5); CREATININE 1.69 mg/dL (0.60-1.30); MAGNESIUM 1.8 mg/dL (1.80-2.40); TOTAL PROTEIN, SERUM 7.3 g/dL (6.4-8.2)
[2021-03-03] MEDS: BUDESONIDE 0.5 MG/2 ML NEB SOLUTION NEB SCH ×2 (07:46→20:56)
[2021-03-03 08:04] VITALS: BP 154/70
[2021-03-03] MEDS: NIFEdipine 30 MG ER TABLET PO SCH ×2 (08:14→21:48)
[2021-03-03] MEDS: DULoxetine HCL 30 MG CAPSULE PO SCH (08:14)
[2021-03-03] MEDS: ASPIRIN 81 MG CHEWABLE TABLET PO SCH (08:14)
[2021-03-03] MEDS: HEPARIN SODIUM,PORCINE 5,000 UNITS/ML VIAL SQ SCH ×2 (08:14→16:50)
[2021-03-03] MEDS: FOLIC ACID 1 MG TABLET PO SCH (08:15)
[2021-03-03] MEDS: BUMETANIDE 0.25 MG/ML 4 ML VIAL IVP SCH ×3 (08:15→21:49)
[2021-03-03] MEDS: CARVEDILOL 25 MG TABLET PO SCH ×2 (08:15→21:48)
[2021-03-03] MEDS: ATORVASTATIN CALCIUM 20 MG TABLET PO SCH (08:15)
[2021-03-03] MEDS: POTASSIUM CHLORIDE 20 MEQ ER TABLET PO SCH (08:15)
[2021-03-03] MEDS: GABAPENTIN 300 MG CAPSULE PO SCH ×3 (08:15→21:48)
[2021-03-03] MEDS: ALLOPURINOL 100 MG TABLET PO SCH (08:23)
[2021-03-03] MEDS: POTASSIUM CHL 10 MEQ/WATER 50 ML IV SCH ×4 (11:00→13:41)
[2021-03-03 13:28] VITALS: BP 179/72
[2021-03-03 15:40] VITALS: BP 153/59
[2021-03-03] MEDS: INSULIN LISPRO 100 UNITS/ML SQ PRN ×2 (16:59→21:50)
[2021-03-03 19:30] VITALS: BP 159/60
[2021-03-03 20:19] LABS: GLUCOMETER DEV NAME(LOC) 5S.1; GLUCOSE,POINT OF CARE 141 MG/DL (70-110)
[2021-03-03] MEDS: HYDROCODONE/ACETAMINOPHEN 5-325 MG TABLET PO PRN (21:48)
[2021-03-03] MEDS: INSULIN GLARGINE,HUM.REC.ANLOG 100 UNITS/ML SQ SCH (21:50)
[2021-03-03 23:49] VITALS: BP 151/69
[2021-03-04] MEDS ORDERED: 0.9% SODIUM CHLORIDE 5 ML NEB SOLUTION NEB ONE ×2 (02:22→19:31)
[2021-03-04] MEDS: ALBUTEROL SULFATE 2.5 MG/0.5 ML NEB SOLUTION NEB SCH ×4 (02:35→19:57)
[2021-03-04 04:44] VITALS: BP 144/62
[2021-03-04] MEDS: LEVOTHYROXINE SODIUM 25 MCG TABLET PO SCH (06:14)
[2021-03-04 06:19] LABS: GLUCOMETER DEV NAME(LOC) 5N.3; GLUCOSE,POINT OF CARE 213 MG/DL (70-110)
[2021-03-04 06:19] LABS: GLUCOMETER DEV NAME(LOC) 5N.3; GLUCOSE,POINT OF CARE 102 MG/DL (70-110)
[2021-03-04 06:24] LABS: BASOPHILS % (AUTO) 0.6 % (0.0-2.0); EOSINOPHILS % (AUTO) 2.4 % (1.0-6.0); HEMATOCRIT 28.3 % (36-46); LYMPHOCYTES # (AUTO) 0.9 K/uL (1.0-4.8); LYMPHOCYTES % (AUTO) 11.6 % (22.0-44.0); MEAN CORPUSCULAR HEMOGLOBIN 26.7 pg (26.0-34.0); MEAN CORPUSCULAR HGB CONC 31.9 G/dL (31.0-37.0); MEAN CORPUSCULAR VOLUME 84 fL (80-100); MONOCYTES # (AUTO) 0.6 K/uL (0.1-1.0); NEUTROPHILS # (AUTO) 5.8 K/uL (1.8-7.7); NEUTROPHILS % (AUTO) 77.4 % (40.0-70.0); PLATELET COUNT (AUTO) 285 K/uL (150-450); RED BLOOD CELL COUNT(AUTO) 3.38 MIL/uL (4.00-5.20); RED CELL DISTRIBUTION WIDTH 18.7 % (11.5-14.5)
[2021-03-04 06:46] LABS: ALBUMIN 2.4 g/dL (3.4-5.0); BILIRUBIN,TOTAL 0.6 mg/dL (0.1-1.0); CALCIUM, TOTAL 8.8 mg/dL (8.8-10.5); CREATININE 1.81 mg/dL (0.60-1.30); POTASSIUM 3.8 mmol/L (3.5-5.1); TOTAL PROTEIN, SERUM 7.1 g/dL (6.4-8.2)
[2021-03-04 07:40] VITALS: BP 152/77
[2021-03-04] MEDS: BUDESONIDE 0.5 MG/2 ML NEB SOLUTION NEB SCH ×2 (08:18→19:57)
[2021-03-04] MEDS: HEPARIN SODIUM,PORCINE 5,000 UNITS/ML VIAL SQ SCH ×3 (09:19→16:00)
[2021-03-04] MEDS: DULoxetine HCL 30 MG CAPSULE PO SCH (09:20)
[2021-03-04] MEDS: ALLOPURINOL 100 MG TABLET PO SCH (09:20)
[2021-03-04] MEDS: CARVEDILOL 25 MG TABLET PO SCH ×2 (09:20→20:44)
[2021-03-04] MEDS: FOLIC ACID 1 MG TABLET PO SCH (09:21)
[2021-03-04] MEDS: POTASSIUM CHLORIDE 20 MEQ ER TABLET PO SCH (09:21)
[2021-03-04] MEDS: ASPIRIN 81 MG CHEWABLE TABLET PO SCH (09:21)
[2021-03-04] MEDS: GABAPENTIN 300 MG CAPSULE PO SCH ×3 (09:22→20:44)
[2021-03-04] MEDS: ATORVASTATIN CALCIUM 20 MG TABLET PO SCH (09:22)
[2021-03-04] MEDS: NIFEdipine 30 MG ER TABLET PO SCH ×2 (09:22→20:43)
[2021-03-04] MEDS: BUMETANIDE 0.25 MG/ML 4 ML VIAL IVP SCH ×3 (09:57→20:43)
[2021-03-04] MEDS: INSULIN LISPRO 100 UNITS/ML SQ PRN ×3 (11:54→20:52)
[2021-03-04 12:20] VITALS: BP 137/64
[2021-03-04 12:41] LABS: GLUCOMETER DEV NAME(LOC) 5N.3; GLUCOSE,POINT OF CARE 215 MG/DL (70-110)
[2021-03-04 16:20] VITALS: BP 140/69
[2021-03-04 18:25] LABS: GLUCOMETER DEV NAME(LOC) 5N.3; GLUCOSE,POINT OF CARE 155 MG/DL (70-110)
[2021-03-04 20:22] VITALS: BP 131/56
[2021-03-04] MEDS: HYDROCODONE/ACETAMINOPHEN 5-325 MG TABLET PO PRN (20:45)
[2021-03-04] MEDS: INSULIN GLARGINE,HUM.REC.ANLOG 100 UNITS/ML SQ SCH (20:55)
[2021-03-05 00:15] VITALS: BP 133/60
[2021-03-05] MEDS ORDERED: 0.9% SODIUM CHLORIDE 5 ML NEB SOLUTION NEB ONE ×2 (02:38→20:08)
[2021-03-05] MEDS: ALBUTEROL SULFATE 2.5 MG/0.5 ML NEB SOLUTION NEB SCH ×3 (02:44→14:32)
[2021-03-05 05:46] VITALS: BP 158/58
[2021-03-05] MEDS: LEVOTHYROXINE SODIUM 25 MCG TABLET PO SCH (06:10)
[2021-03-05 07:07] LABS: BASOPHILS % (AUTO) 0.7 % (0.0-2.0); EOSINOPHILS % (AUTO) 2.9 % (1.0-6.0); HEMATOCRIT 29.6 % (36-46); HEMOGLOBIN 9.3 g/dL (12.0-16.0); LYMPHOCYTES # (AUTO) 0.8 K/uL (1.0-4.8); MEAN CORPUSCULAR HEMOGLOBIN 26.9 pg (26.0-34.0); MEAN CORPUSCULAR HGB CONC 31.6 G/dL (31.0-37.0); MEAN CORPUSCULAR VOLUME 85 fL (80-100); MONOCYTES # (AUTO) 0.7 K/uL (0.1-1.0); MONOCYTES % (AUTO) 7.6 % (2.0-9.0); NEUTROPHILS # (AUTO) 7.4 K/uL (1.8-7.7); NEUTROPHILS % (AUTO) 79.8 % (40.0-70.0); PLATELET COUNT (AUTO) 286 K/uL (150-450); RED BLOOD CELL COUNT(AUTO) 3.47 MIL/uL (4.00-5.20); RED CELL DISTRIBUTION WIDTH 18.7 % (11.5-14.5)
[2021-03-05 07:25] VITALS: BP 130/55
[2021-03-05 07:38] LABS: ALBUMIN 2.6 g/dL (3.4-5.0); BILIRUBIN,TOTAL 0.5 mg/dL (0.1-1.0); CALCIUM, TOTAL 8.9 mg/dL (8.8-10.5); CREATININE 1.92 mg/dL (0.60-1.30); POTASSIUM 4.5 mmol/L (3.5-5.1); TOTAL PROTEIN, SERUM 7.1 g/dL (6.4-8.2)
[2021-03-05] MEDS: CARVEDILOL 25 MG TABLET PO SCH (09:19)
[2021-03-05] MEDS: FOLIC ACID 1 MG TABLET PO SCH (09:19)
[2021-03-05] MEDS: ATORVASTATIN CALCIUM 20 MG TABLET PO SCH (09:19)
[2021-03-05] MEDS: ASPIRIN 81 MG CHEWABLE TABLET PO SCH (09:19)
[2021-03-05] MEDS: POTASSIUM CHLORIDE 20 MEQ ER TABLET PO SCH (09:19)
[2021-03-05] MEDS: ALLOPURINOL 100 MG TABLET PO SCH (09:19)
[2021-03-05] MEDS: DULoxetine HCL 30 MG CAPSULE PO SCH (09:19)
[2021-03-05] MEDS: NIFEdipine 30 MG ER TABLET PO SCH (09:19)
[2021-03-05] MEDS: HEPARIN SODIUM,PORCINE 5,000 UNITS/ML VIAL SQ SCH ×3 (09:20→16:00)
[2021-03-05] MEDS: BUMETANIDE 0.25 MG/ML 4 ML VIAL IVP SCH ×2 (09:20→17:20)
[2021-03-05] MEDS: GABAPENTIN 300 MG CAPSULE PO SCH ×2 (09:20→17:20)
[2021-03-05] MEDS: EPOETIN ALFA 10,000 UNITS/ML VIAL SQ SCH (09:23)
[2021-03-05] MEDS: HYDROCODONE/ACETAMINOPHEN 5-325 MG TABLET PO PRN ×2 (09:24→17:30)
[2021-03-05] MEDS: BUDESONIDE 0.5 MG/2 ML NEB SOLUTION NEB SCH (09:45)
[2021-03-05 11:16] VITALS: BP 147/57
[2021-03-05 12:14] LABS: GLUCOMETER DEV NAME(LOC) 5N.3; GLUCOSE,POINT OF CARE 146 MG/DL (70-110)
[2021-03-05] MEDS ORDERED: AcetaZOLAMIDE 250 MG TABLET PO ONE (12:30)
[2021-03-05] MEDS: INSULIN LISPRO 100 UNITS/ML SQ PRN ×2 (12:55→17:20)
[2021-03-05 15:43] VITALS: BP 138/60
[2021-03-05 17:15] LABS: GLUCOMETER DEV NAME(LOC) 5S.1; GLUCOSE,POINT OF CARE 196 MG/DL (70-110)
[2021-03-05 17:15] LABS: GLUCOMETER DEV NAME(LOC) 5S.1; GLUCOSE,POINT OF CARE 129 MG/DL (70-110)
[2021-03-05 18:12] LABS: GLUCOMETER DEV NAME(LOC) 5S.1; GLUCOSE,POINT OF CARE 220 MG/DL (70-110)
== END 2021-03-05 19:05 | disposition home health service (06) | DRG 286 ==
LOC: EMS 19:52 → 5S 22:02
PROVIDERS: ADMIT Internal Medicine; ATTEND Internal Medicine
PROC: 5A09357 Assistance with Respiratory Ventilation, Less than 24 Consecutive Hours, Continuous Positive Airway Pressure (ICD-10-PCS; 2021-02-17)
PROC: 5A09357 Assistance with Respiratory Ventilation, Less than 24 Consecutive Hours, Continuous Positive Airway Pressure (ICD-10-PCS; 2021-02-18)
PROC: 5A09357 Assistance with Respiratory Ventilation, Less than 24 Consecutive Hours, Continuous Positive Airway Pressure (ICD-10-PCS; 2021-02-19)
PROC: 0W993ZZ Drainage of Right Pleural Cavity, Percutaneous Approach (ICD-10-PCS; 2021-02-20)
PROC: 5A09357 Assistance with Respiratory Ventilation, Less than 24 Consecutive Hours, Continuous Positive Airway Pressure (ICD-10-PCS; 2021-02-20)
PROC: 5A09357 Assistance with Respiratory Ventilation, Less than 24 Consecutive Hours, Continuous Positive Airway Pressure (ICD-10-PCS; 2021-02-21)
PROC: 0W9B3ZZ Drainage of Left Pleural Cavity, Percutaneous Approach (ICD-10-PCS; principal; 2021-02-22)
PROC: 5A09357 Assistance with Respiratory Ventilation, Less than 24 Consecutive Hours, Continuous Positive Airway Pressure (ICD-10-PCS; 2021-02-22)
PROC: 5A09357 Assistance with Respiratory Ventilation, Less than 24 Consecutive Hours, Continuous Positive Airway Pressure (ICD-10-PCS; 2021-02-23)
PROC: 5A09357 Assistance with Respiratory Ventilation, Less than 24 Consecutive Hours, Continuous Positive Airway Pressure (ICD-10-PCS; 2021-02-24)
PROC: 5A09357 Assistance with Respiratory Ventilation, Less than 24 Consecutive Hours, Continuous Positive Airway Pressure (ICD-10-PCS; 2021-02-25)
PROC: 4A023N6 Measurement of Cardiac Sampling and Pressure, Right Heart, Percutaneous Approach (ICD-10-PCS; 2021-02-26)
PROC: 5A09357 Assistance with Respiratory Ventilation, Less than 24 Consecutive Hours, Continuous Positive Airway Pressure (ICD-10-PCS; 2021-02-26)
PROC: 5A09357 Assistance with Respiratory Ventilation, Less than 24 Consecutive Hours, Continuous Positive Airway Pressure (ICD-10-PCS; 2021-02-27)
PROC: 5A09357 Assistance with Respiratory Ventilation, Less than 24 Consecutive Hours, Continuous Positive Airway Pressure (ICD-10-PCS; 2021-02-28)
PROC: 5A09357 Assistance with Respiratory Ventilation, Less than 24 Consecutive Hours, Continuous Positive Airway Pressure (ICD-10-PCS; 2021-03-01)
PROC: 5A09357 Assistance with Respiratory Ventilation, Less than 24 Consecutive Hours, Continuous Positive Airway Pressure (ICD-10-PCS; 2021-03-02)
PROC: 5A09357 Assistance with Respiratory Ventilation, Less than 24 Consecutive Hours, Continuous Positive Airway Pressure (ICD-10-PCS; 2021-03-03)
PROC: 5A09357 Assistance with Respiratory Ventilation, Less than 24 Consecutive Hours, Continuous Positive Airway Pressure (ICD-10-PCS; 2021-03-04)
PROC: 5A09357 Assistance with Respiratory Ventilation, Less than 24 Consecutive Hours, Continuous Positive Airway Pressure (ICD-10-PCS; 2021-03-05)
DX: I13.0 Hypertensive heart and chronic kidney disease with heart failure and stage 1 through stage 4 chronic kidney disease, or unspecified chronic kidney disease (principal); A41.9 Sepsis, unspecified organism; J96.21 Acute and chronic respiratory failure with hypoxia; I50.43 Acute on chronic combined systolic (congestive) and diastolic (congestive) heart failure; R53.2 Functional quadriplegia; T83.518A Infection and inflammatory reaction due to other urinary catheter, initial encounter; N39.0 Urinary tract infection, site not specified; L03.90 Cellulitis, unspecified; E87.1 Hypo-osmolality and hyponatremia; N18.4 Chronic kidney disease, stage 4 (severe); N17.9 Acute kidney failure, unspecified; J98.11 Atelectasis; E87.3 Alkalosis; J91.8 Pleural effusion in other conditions classified elsewhere; Y83.9 Surgical procedure, unspecified as the cause of abnormal reaction of the patient, or of later complication, without mention of misadventure at the time of the procedure; E11.22 Type 2 diabetes mellitus with diabetic chronic kidney disease; I16.0 Hypertensive urgency; E11.40 Type 2 diabetes mellitus with diabetic neuropathy, unspecified; I25.10 Atherosclerotic heart disease of native coronary artery without angina pectoris; G89.29 Other chronic pain; E11.65 Type 2 diabetes mellitus with hyperglycemia; E87.6 Hypokalemia; E03.9 Hypothyroidism, unspecified; I08.1 Rheumatic disorders of both mitral and tricuspid valves; I27.20 Pulmonary hypertension, unspecified; E78.5 Hyperlipidemia, unspecified; B96.20 Unspecified Escherichia coli [E. coli] as the cause of diseases classified elsewhere; B96.5 Pseudomonas (aeruginosa) (mallei) (pseudomallei) as the cause of diseases classified elsewhere; I48.91 Unspecified atrial fibrillation; J44.9 Chronic obstructive pulmonary disease, unspecified; L89.301 Pressure ulcer of unspecified buttock, stage 1; L98.499 Non-pressure chronic ulcer of skin of other sites with unspecified severity; R00.0 Tachycardia, unspecified; R00.1 Bradycardia, unspecified; N13.9 Obstructive and reflux uropathy, unspecified; M10.9 Gout, unspecified; E83.42 Hypomagnesemia; D63.8 Anemia in other chronic diseases classified elsewhere; L89.159 Pressure ulcer of sacral region, unspecified stage; R07.9 Chest pain, unspecified; Z20.822 Contact with and (suspected) exposure to COVID-19; G47.33 Obstructive sleep apnea (adult) (pediatric); Z86.011 Personal history of benign neoplasm of the brain; Z95.0 Presence of cardiac pacemaker; Z86.61 Personal history of infections of the central nervous system; Z79.4 Long term (current) use of insulin; Z85.42 Personal history of malignant neoplasm of other parts of uterus; Z87.891 Personal history of nicotine dependence; Z90.710 Acquired absence of both cervix and uterus; Z92.3 Personal history of irradiation; Z95.1 Presence of aortocoronary bypass graft; Z87.440 Personal history of urinary (tract) infections; Z82.49 Family history of ischemic heart disease and other diseases of the circulatory system; Z88.1 Allergy status to other antibiotic agents; Z88.8 Allergy status to other drugs, medicaments and biological substances; Z79.899 Other long term (current) drug therapy; Z79.82 Long term (current) use of aspirin; Z90.49 Acquired absence of other specified parts of digestive tract; Z74.01 Bed confinement status
CPT/HCPCS: 32555; 36600; 70450; 71045; 71250; 74176; 76770; 76942; 78582; 80048; 80053; 81001; 81002; 82043; 82465; 82550; 82570; 82805; 82945; 82962; 83605; 83615; 83735; 83880; 83986; 84100; 84145; 84155; 84156; 84157; 84300; 84439; 84443; 84484; 84540; 85025; 85379; 85610; 85730; 87015; 87040; 87070; 87077; 87086; 87101; 87186; 87205; 87206; 89051; 90686; 93005; 93306; 93451; 93880; 94640; 94660; 97110; 97116; 97162; 97530; 99291; A9539; A9540; C8924; J0360; J0885; J1644; J1815; J1940; J2250; J2405; J2543; J3010; J3475; J3480; J3490; J7040; J7050; J7060; Q9967; 36415-L1; 36415-TC; G0008; J7613

== ENCOUNTER → 2021-03-13 | Outpatient (CLI) | payer MEDICARE, OTHER ==
[~2021-03-13] VITALS: Ht 154.9 cm; Wt 80.0 kg
[~2021-03-13] MED LIST changes: -ALLO100T2 PO; +ATOR20TA86 PO; +BUME1TAB34 PO; -FOLI-130 PO; -FURO80 PO; +HEPA500018 SQ; +HYDR-4723 PO; +INSLAN SQ; +LEVO25TA9 PO; +NIFE30TA5 PO
[2021-03-13 11:33] VITALS: BP 163/68
== END | disposition home or self-care (01) ==
LOC: SRCNTR 10:28
PROVIDERS: ATTEND Hospitalist
DX: I12.9 Hypertensive chronic kidney disease with stage 1 through stage 4 chronic kidney disease, or unspecified chronic kidney disease (principal); E11.22 Type 2 diabetes mellitus with diabetic chronic kidney disease; N18.30 Chronic kidney disease, stage 3 unspecified; I25.10 Atherosclerotic heart disease of native coronary artery without angina pectoris; C55 Malignant neoplasm of uterus, part unspecified; N30.40 Irradiation cystitis without hematuria; G62.9 Polyneuropathy, unspecified; H35.30 Unspecified macular degeneration; H26.8 Other specified cataract; Z95.0 Presence of cardiac pacemaker; Z90.49 Acquired absence of other specified parts of digestive tract
CPT/HCPCS: G0463

== ENCOUNTER 2021-04-29 17:21 | Inpatient (IN) | payer MEDICARE, OTHER ==
[~2021-04-29] VITALS: Ht 160 cm; Wt 85.9 kg
[~2021-04-29 17:21] MED LIST changes: -AUD NEB; -HEPA500018 SQ; -HYDR-4723 PO
[2021-04-29 17:58] LABS: BASOPHILS % (AUTO) 0.3 % (0.0-2.0); EOSINOPHILS % (AUTO) 1.6 % (1.0-6.0); HEMATOCRIT 30.6 % (36-46); HEMOGLOBIN 9.8 g/dL (12.0-16.0); LYMPHOCYTES # (AUTO) 0.8 K/uL (1.0-4.8); LYMPHOCYTES % (AUTO) 9.9 % (22.0-44.0); MEAN CORPUSCULAR VOLUME 78 fL (80-100); MONOCYTES # (AUTO) 0.5 K/uL (0.1-1.0); MONOCYTES % (AUTO) 5.5 % (2.0-9.0); NEUTROPHILS # (AUTO) 7.1 K/uL (1.8-7.7); NEUTROPHILS % (AUTO) 82.7 % (40.0-70.0); PLATELET COUNT (AUTO) 321 K/uL (150-450); RED BLOOD CELL COUNT(AUTO) 3.91 MIL/uL (4.00-5.20); RED CELL DISTRIBUTION WIDTH 16.9 % (11.5-14.5)
[2021-04-29 18:11] LABS: CALCIUM, TOTAL 8.8 mg/dL (8.8-10.5); CREATININE 1.87 mg/dL (0.60-1.30); POTASSIUM 4.4 mmol/L (3.5-5.1)
[2021-04-29 18:18] LABS: BILIRUBIN,TOTAL 0.7 mg/dL (0.1-1.0)
[2021-04-29] MEDS ORDERED: BUMETANIDE 0.25 MG/ML 4 ML VIAL IVP ONE (19:30)
[2021-04-29] MEDS ORDERED: DEXTROSE 50%-WATER 25 GM/50 ML SYRINGE IVP PRN (20:15)
[2021-04-29 20:47] LABS: COVID AG,FIA SOURCE NASAL SWAB
[2021-04-29] MEDS: INSULIN GLARGINE,HUM.REC.ANLOG 100 UNITS/ML SQ SCH (21:00)
[2021-04-29] MEDS ORDERED: BUMETANIDE 1 MG TABLET PO SCH (21:00)
[2021-04-29] MEDS: CARVEDILOL 25 MG TABLET PO SCH (22:45)
[2021-04-29] MEDS: GABAPENTIN 300 MG CAPSULE PO SCH (22:45)
[2021-04-29 23:26] LABS: GLUCOMETER DEV NAME(LOC) ERT.5; GLUCOSE,POINT OF CARE 157 MG/DL (70-110)
[2021-04-30] MEDS: BUMETANIDE 0.25 MG/ML 4 ML VIAL IVP SCH ×3 (05:58→20:41)
[2021-04-30] MEDS: LEVOTHYROXINE SODIUM 25 MCG TABLET PO SCH (06:25)
[2021-04-30 08:31] LABS: GLUCOMETER DEV NAME(LOC) ERT.5; GLUCOSE,POINT OF CARE 137 MG/DL (70-110)
[2021-04-30] MEDS: ASPIRIN 81 MG CHEWABLE TABLET PO SCH (08:57)
[2021-04-30] MEDS: GABAPENTIN 300 MG CAPSULE PO SCH ×3 (08:57→20:42)
[2021-04-30] MEDS: CARVEDILOL 25 MG TABLET PO SCH ×2 (08:57→20:42)
[2021-04-30] MEDS: ATORVASTATIN CALCIUM 20 MG TABLET PO SCH (08:57)
[2021-04-30] MEDS: METOLAZONE 5 MG TABLET PO SCH (09:32)
[2021-04-30] MEDS: NIFEdipine 30 MG ER TABLET PO SCH (09:33)
[2021-04-30] MEDS: DULoxetine HCL 30 MG CAPSULE PO SCH (09:33)
[2021-04-30] MEDS: LOSARTAN POTASSIUM 25 MG TABLET PO SCH ×2 (14:13→20:42)
[2021-04-30 16:15] LABS: GLUCOMETER DEV NAME(LOC) ERT.5; GLUCOSE,POINT OF CARE 170 MG/DL (70-110)
[2021-04-30 20:05] VITALS: BP 158/67
[2021-04-30 20:11] LABS: GLUCOMETER DEV NAME(LOC) 5S.2B; GLUCOSE,POINT OF CARE 132 MG/DL (70-110)
[2021-04-30] MEDS: INSULIN GLARGINE,HUM.REC.ANLOG 100 UNITS/ML SQ SCH (20:44)
[2021-05-01 01:15] VITALS: BP 142/73
[2021-05-01 04:33] VITALS: BP 122/58
[2021-05-01] MEDS: ACETAMINOPHEN 325 MG TABLET PO PRN ×2 (06:25→22:17)
[2021-05-01] MEDS: BUMETANIDE 0.25 MG/ML 4 ML VIAL IVP SCH ×4 (06:26→18:36)
[2021-05-01] MEDS: LEVOTHYROXINE SODIUM 25 MCG TABLET PO SCH (06:28)
[2021-05-01 08:00] VITALS: BP 141/64
[2021-05-01] MEDS: NIFEdipine 30 MG ER TABLET PO SCH (09:29)
[2021-05-01] MEDS: ATORVASTATIN CALCIUM 20 MG TABLET PO SCH (09:29)
[2021-05-01] MEDS: ASPIRIN 81 MG CHEWABLE TABLET PO SCH (09:30)
[2021-05-01] MEDS: GABAPENTIN 300 MG CAPSULE PO SCH ×3 (09:30→22:11)
[2021-05-01] MEDS: DULoxetine HCL 30 MG CAPSULE PO SCH (09:30)
[2021-05-01] MEDS: LOSARTAN POTASSIUM 25 MG TABLET PO SCH ×2 (09:30→22:11)
[2021-05-01] MEDS: CARVEDILOL 25 MG TABLET PO SCH ×2 (09:31→22:11)
[2021-05-01 11:52] VITALS: BP 110/59
[2021-05-01 15:40] VITALS: BP 134/59
[2021-05-01 20:10] VITALS: BP 130/54
[2021-05-01 21:32] LABS: GLUCOMETER DEV NAME(LOC) 5S.1; GLUCOSE,POINT OF CARE 105 MG/DL (70-110)
[2021-05-01 21:32] LABS: GLUCOMETER DEV NAME(LOC) 5S.1; GLUCOSE,POINT OF CARE 116 MG/DL (70-110)
[2021-05-01 21:32] LABS: GLUCOMETER DEV NAME(LOC) 5S.1; GLUCOSE,POINT OF CARE 135 MG/DL (70-110)
[2021-05-01] MEDS: INSULIN GLARGINE,HUM.REC.ANLOG 100 UNITS/ML SQ SCH (22:14)
[2021-05-01 22:31] LABS: GLUCOMETER DEV NAME(LOC) 5N.3; GLUCOSE,POINT OF CARE 123 MG/DL (70-110)
[2021-05-02 00:10] VITALS: BP 140/70
[2021-05-02] MEDS: BUMETANIDE 0.25 MG/ML 4 ML VIAL IVP SCH ×6 (00:37→23:30)
[2021-05-02 04:05] VITALS: BP 128/84
[2021-05-02 05:53] LABS: BASOPHILS % (AUTO) 0.4 % (0.0-2.0); EOSINOPHILS % (AUTO) 2.9 % (1.0-6.0); HEMATOCRIT 27.2 % (36-46); HEMOGLOBIN 8.8 g/dL (12.0-16.0); LYMPHOCYTES % (AUTO) 15.2 % (22.0-44.0); MEAN CORPUSCULAR HGB CONC 32.5 G/dL (31.0-37.0); MEAN CORPUSCULAR VOLUME 77 fL (80-100); MONOCYTES # (AUTO) 0.6 K/uL (0.1-1.0); NEUTROPHILS # (AUTO) 4.6 K/uL (1.8-7.7); NEUTROPHILS % (AUTO) 72.5 % (40.0-70.0); PLATELET COUNT (AUTO) 265 K/uL (150-450); RED BLOOD CELL COUNT(AUTO) 3.53 MIL/uL (4.00-5.20); RED CELL DISTRIBUTION WIDTH 16.8 % (11.5-14.5)
[2021-05-02] MEDS: LEVOTHYROXINE SODIUM 25 MCG TABLET PO SCH (05:54)
[2021-05-02] MEDS: ACETAMINOPHEN 325 MG TABLET PO PRN ×2 (06:07→20:35)
[2021-05-02 06:32] LABS: CALCIUM, TOTAL 8.2 mg/dL (8.8-10.5); CREATININE 1.85 mg/dL (0.60-1.30); POTASSIUM 3.4 mmol/L (3.5-5.1)
[2021-05-02 07:48] VITALS: BP 157/65
[2021-05-02] MEDS: NIFEdipine 30 MG ER TABLET PO SCH (08:58)
[2021-05-02] MEDS: GABAPENTIN 300 MG CAPSULE PO SCH ×3 (08:58→20:35)
[2021-05-02] MEDS: ASPIRIN 81 MG CHEWABLE TABLET PO SCH (08:58)
[2021-05-02] MEDS: ATORVASTATIN CALCIUM 20 MG TABLET PO SCH (08:58)
[2021-05-02] MEDS: CARVEDILOL 25 MG TABLET PO SCH ×2 (08:59→20:35)
[2021-05-02] MEDS: DULoxetine HCL 30 MG CAPSULE PO SCH (08:59)
[2021-05-02] MEDS: LOSARTAN POTASSIUM 25 MG TABLET PO SCH ×2 (08:59→20:35)
[2021-05-02] MEDS ORDERED: POTASSIUM CHLORIDE 10 MEQ ER TABLET PO ONE (10:15)
[2021-05-02] MEDS: INSULIN LISPRO 100 UNITS/ML SQ PRN ×2 (12:42→17:30)
[2021-05-02 12:44] VITALS: BP 148/60
[2021-05-02 15:11] LABS: GLUCOMETER DEV NAME(LOC) 5S.1; GLUCOSE,POINT OF CARE 184 MG/DL (70-110)
[2021-05-02 15:55] VITALS: BP 140/69
[2021-05-02] MEDS: INSULIN GLARGINE,HUM.REC.ANLOG 100 UNITS/ML SQ SCH (20:40)
[2021-05-02 23:00] VITALS: BP 147/58
[2021-05-02 23:51] LABS: GLUCOMETER DEV NAME(LOC) 5S.1; GLUCOSE,POINT OF CARE 125 MG/DL (70-110)
[2021-05-03] MEDS ORDERED: MORPHINE SULFATE 2 MG/ML SYRINGE IVP ONE ×2 (01:00→22:00)
[2021-05-03 03:20] VITALS: BP 125/54
[2021-05-03] MEDS: BUMETANIDE 0.25 MG/ML 4 ML VIAL IVP SCH ×2 (06:00→12:05)
[2021-05-03 07:05] LABS: ABG BASE EXCESS 3.9 mmol/L (-2.0-3.0); ABG CARBOXYHEMOGLOBIN 0.9 % (0.0-1.5); ABG HCO3 27.8 mmol/L (22.0-26.0); ABG METHEMOGLOBIN 0.3 % (0.0-1.5); ABG OXYGEN CONTENT 12.3 mL/dL (15.0-23.0); ABG OXYGEN SATURATION 89.4 % (95.0-98.0); ABG OXYHEMOGLOBIN 88.3 % (94.0-100.0); ABG PCO2 34 mmHg (35-45); ABG PH 7.512 (7.35-7.450); ABG TOTAL HEMOGLOBIN 9.9 G/dL (12.0-18.0); O2 DEVICE,BLOOD GAS CANNULA (ROOM AIR); SITE, BLOOD GAS LFT BRACHIAL; SOURCE, BLOOD GAS ARTERIAL; TEMPERATURE, FAHRENHEIT, BG 97.9 FAHREN (96.0-98.6)
[2021-05-03 08:01] LABS: GLUCOMETER DEV NAME(LOC) 5S.1; GLUCOSE,POINT OF CARE 123 MG/DL (70-110)
[2021-05-03 08:06] VITALS: BP 150/65
[2021-05-03] MEDS: LEVOTHYROXINE SODIUM 25 MCG TABLET PO SCH (08:13)
[2021-05-03] MEDS ORDERED: POTASSIUM CHLORIDE 20 MEQ ER TABLET PO ONE (08:45)
[2021-05-03] MEDS: LOSARTAN POTASSIUM 25 MG TABLET PO SCH ×2 (09:25→21:26)
[2021-05-03] MEDS: ASPIRIN 81 MG CHEWABLE TABLET PO SCH (09:26)
[2021-05-03] MEDS: DULoxetine HCL 30 MG CAPSULE PO SCH (09:26)
[2021-05-03] MEDS: CARVEDILOL 25 MG TABLET PO SCH ×2 (09:26→21:26)
[2021-05-03] MEDS: GABAPENTIN 300 MG CAPSULE PO SCH ×3 (09:26→21:26)
[2021-05-03] MEDS: METOLAZONE 5 MG TABLET PO SCH (09:26)
[2021-05-03] MEDS: NIFEdipine 30 MG ER TABLET PO SCH (09:27)
[2021-05-03] MEDS: ATORVASTATIN CALCIUM 20 MG TABLET PO SCH (09:27)
[2021-05-03 11:32] VITALS: BP 149/70
[2021-05-03 11:42] LABS: GLUCOMETER DEV NAME(LOC) 5N.1C; GLUCOSE,POINT OF CARE 131 MG/DL (70-110)
[2021-05-03 11:42] LABS: GLUCOMETER DEV NAME(LOC) 5N.1C; GLUCOSE,POINT OF CARE 116 MG/DL (70-110)
[2021-05-03] MEDS: INSULIN LISPRO 100 UNITS/ML SQ PRN ×2 (12:08→21:32)
[2021-05-03 13:58] LABS: BASOPHILS % (AUTO) 0.4 % (0.0-2.0); EOSINOPHILS % (AUTO) 2.5 % (1.0-6.0); HEMATOCRIT 28.7 % (36-46); HEMOGLOBIN 9.3 g/dL (12.0-16.0); LYMPHOCYTES # (AUTO) 0.7 K/uL (1.0-4.8); LYMPHOCYTES % (AUTO) 11.5 % (22.0-44.0); MEAN CORPUSCULAR HGB CONC 32.6 G/dL (31.0-37.0); MEAN CORPUSCULAR VOLUME 77 fL (80-100); MONOCYTES # (AUTO) 0.5 K/uL (0.1-1.0); MONOCYTES % (AUTO) 7.6 % (2.0-9.0); NEUTROPHILS # (AUTO) 4.9 K/uL (1.8-7.7); PLATELET COUNT (AUTO) 272 K/uL (150-450); RED BLOOD CELL COUNT(AUTO) 3.73 MIL/uL (4.00-5.20); RED CELL DISTRIBUTION WIDTH 16.6 % (11.5-14.5)
[2021-05-03 14:08] LABS: CALCIUM, TOTAL 8.3 mg/dL (8.8-10.5); CREATININE 1.76 mg/dL (0.60-1.30); POTASSIUM 3.7 mmol/L (3.5-5.1)
[2021-05-03 15:41] VITALS: BP 142/66
[2021-05-03] MEDS: ACETAMINOPHEN 325 MG TABLET PO PRN (17:55)
[2021-05-03 19:33] VITALS: BP 133/57
[2021-05-03] MEDS: BUMETANIDE 1 MG TABLET PO SCH (21:26)
[2021-05-03] MEDS: INSULIN GLARGINE,HUM.REC.ANLOG 100 UNITS/ML SQ SCH (21:32)
[2021-05-03 23:55] VITALS: BP 118/61
[2021-05-04] MEDS: ACETAMINOPHEN 325 MG TABLET PO PRN ×2 (02:41→09:49)
[2021-05-04 03:58] VITALS: BP 124/58
[2021-05-04] MEDS ORDERED: MORPHINE SULFATE 2 MG/ML SYRINGE IVP ONE (06:00)
[2021-05-04] MEDS: LEVOTHYROXINE SODIUM 25 MCG TABLET PO SCH (06:44)
[2021-05-04 07:09] VITALS: BP 126/51
[2021-05-04] MEDS: LOSARTAN POTASSIUM 25 MG TABLET PO SCH (08:42)
[2021-05-04] MEDS: DULoxetine HCL 30 MG CAPSULE PO SCH (08:43)
[2021-05-04] MEDS: ASPIRIN 81 MG CHEWABLE TABLET PO SCH (08:43)
[2021-05-04] MEDS: BUMETANIDE 1 MG TABLET PO SCH (08:43)
[2021-05-04] MEDS: GABAPENTIN 300 MG CAPSULE PO SCH ×2 (08:44→16:01)
[2021-05-04] MEDS: CARVEDILOL 25 MG TABLET PO SCH (08:44)
[2021-05-04] MEDS: ATORVASTATIN CALCIUM 20 MG TABLET PO SCH (08:44)
[2021-05-04] MEDS: NIFEdipine 30 MG ER TABLET PO SCH (08:44)
[2021-05-04 11:11] VITALS: BP 141/52
[2021-05-04] MEDS ORDERED: HYDROCODONE/ACETAMINOPHEN 5-325 MG TABLET PO ONE (11:15)
[2021-05-04] MEDS: INSULIN LISPRO 100 UNITS/ML SQ PRN (12:16)
[2021-05-04 12:21] LABS: GLUCOMETER DEV NAME(LOC) 5S.1; GLUCOSE,POINT OF CARE 200 MG/DL (70-110)
[2021-05-04 12:21] LABS: GLUCOMETER DEV NAME(LOC) 5S.1; GLUCOSE,POINT OF CARE 166 MG/DL (70-110)
[2021-05-04 14:25] LABS: COVID AG,FIA SOURCE NASAL SWAB
[2021-05-04 15:40] VITALS: BP 138/58
[2021-05-04 20:51] LABS: GLUCOMETER DEV NAME(LOC) 5N.3; GLUCOSE,POINT OF CARE 138 MG/DL (70-110)
[2021-05-04 20:51] LABS: GLUCOMETER DEV NAME(LOC) 5N.3; GLUCOSE,POINT OF CARE 187 MG/DL (70-110)
[2021-05-04 20:51] LABS: GLUCOMETER DEV NAME(LOC) 5N.3; GLUCOSE,POINT OF CARE 162 MG/DL (70-110)
[2021-05-05 07:06] LABS: GLUCOMETER DEV NAME(LOC) 5S.2B; GLUCOSE,POINT OF CARE 116 MG/DL (70-110)
== END 2021-05-04 16:35 | DRG 291 ==
LOC: EMS 17:23 → 5S 04-30 15:35
PROVIDERS: ADMIT Internal Medicine; ATTEND Internal Medicine
PROC: 5A09357 Assistance with Respiratory Ventilation, Less than 24 Consecutive Hours, Continuous Positive Airway Pressure (ICD-10-PCS; principal; 2021-04-30)
PROC: 5A09357 Assistance with Respiratory Ventilation, Less than 24 Consecutive Hours, Continuous Positive Airway Pressure (ICD-10-PCS; 2021-05-01)
PROC: 5A09357 Assistance with Respiratory Ventilation, Less than 24 Consecutive Hours, Continuous Positive Airway Pressure (ICD-10-PCS; 2021-05-02)
PROC: 5A09357 Assistance with Respiratory Ventilation, Less than 24 Consecutive Hours, Continuous Positive Airway Pressure (ICD-10-PCS; 2021-05-03)
PROC: 5A09357 Assistance with Respiratory Ventilation, Less than 24 Consecutive Hours, Continuous Positive Airway Pressure (ICD-10-PCS; 2021-05-04)
DX: I13.0 Hypertensive heart and chronic kidney disease with heart failure and stage 1 through stage 4 chronic kidney disease, or unspecified chronic kidney disease (principal); I50.33 Acute on chronic diastolic (congestive) heart failure; J96.21 Acute and chronic respiratory failure with hypoxia; R53.2 Functional quadriplegia; G82.20 Paraplegia, unspecified; N18.4 Chronic kidney disease, stage 4 (severe); I42.5 Other restrictive cardiomyopathy; I25.10 Atherosclerotic heart disease of native coronary artery without angina pectoris; E11.65 Type 2 diabetes mellitus with hyperglycemia; I27.81 Cor pulmonale (chronic); J44.9 Chronic obstructive pulmonary disease, unspecified; E11.22 Type 2 diabetes mellitus with diabetic chronic kidney disease; I27.29 Other secondary pulmonary hypertension; E03.9 Hypothyroidism, unspecified; G47.33 Obstructive sleep apnea (adult) (pediatric); E66.9 Obesity, unspecified; Z20.822 Contact with and (suspected) exposure to COVID-19; D64.9 Anemia, unspecified; E11.40 Type 2 diabetes mellitus with diabetic neuropathy, unspecified; I36.1 Nonrheumatic tricuspid (valve) insufficiency; R53.81 Other malaise; I49.5 Sick sinus syndrome; N13.9 Obstructive and reflux uropathy, unspecified; Z79.4 Long term (current) use of insulin; Z95.1 Presence of aortocoronary bypass graft; Z86.61 Personal history of infections of the central nervous system; Z68.33 Body mass index [BMI] 33.0-33.9, adult; Z74.01 Bed confinement status; Z87.440 Personal history of urinary (tract) infections; Z87.891 Personal history of nicotine dependence; Z93.50 Unspecified cystostomy status; Z95.0 Presence of cardiac pacemaker; Z88.8 Allergy status to other drugs, medicaments and biological substances; Z90.49 Acquired absence of other specified parts of digestive tract
CPT/HCPCS: 36600; 71045; 71046; 80048; 80053; 82805; 82962; 83880; 84132; 84484; 85025; 93005; 94660; 97116; 97162; 97530; 99285; J1815; J2270; J3490; 36415-L1; 36415-TC; U0003

== ENCOUNTER 2021-05-31 13:57 | Inpatient (IN) | payer MEDICARE, OTHER ==
[~2021-05-31] VITALS: Ht 154.9 cm; Wt 91.0 kg
[2021-05-31 14:33] LABS: BASOPHILS % (AUTO) 0.3 % (0.0-2.0); EOSINOPHILS % (AUTO) 1.8 % (1.0-6.0); HEMOGLOBIN 8.5 g/dL (12.0-16.0); LYMPHOCYTES # (AUTO) 0.6 K/uL (1.0-4.8); LYMPHOCYTES % (AUTO) 8.9 % (22.0-44.0); MEAN CORPUSCULAR HEMOGLOBIN 23.8 pg (26.0-34.0); MEAN CORPUSCULAR HGB CONC 31.4 G/dL (31.0-37.0); MEAN CORPUSCULAR VOLUME 76 fL (80-100); MONOCYTES # (AUTO) 0.6 K/uL (0.1-1.0); MONOCYTES % (AUTO) 9.7 % (2.0-9.0); NEUTROPHILS # (AUTO) 5.1 K/uL (1.8-7.7); NEUTROPHILS % (AUTO) 79.3 % (40.0-70.0); PLATELET COUNT (AUTO) 245 K/uL (150-450); RED BLOOD CELL COUNT(AUTO) 3.55 MIL/uL (4.00-5.20); RED CELL DISTRIBUTION WIDTH 17.6 % (11.5-14.5)
[2021-05-31 14:47] LABS: ANION GAP 8 mmol/L (8-16); CALCIUM, TOTAL 8.2 mg/dL (8.8-10.5); CARBON DIOXIDE 27 mmol/L (22-29); CHLORIDE 97 mmol/L (98-107); CREATININE 2.17 mg/dL (0.60-1.30); GLOMERULAR FILTR. RATE CALC 22 mL/min (>60); GLUCOSE,RANDOM 125 mg/dL (70-110); POTASSIUM 4.4 mmol/L (3.5-5.1); SODIUM SERUM 132 mmol/L (136-145); UREA NITROGEN, BLOOD 70 mg/dL (7-18)
[2021-05-31 14:57] LABS: B-TYPE NATRIURETIC PEPTIDE 773 pg/mL (0-100)
[2021-05-31 15:02] LABS: ALANINE AMINOTRANSFERASE 20 U/L (12-78); ALBUMIN 2.7 g/dL (3.4-5.0); ALKALINE PHOSPHATASE 139 U/L (46-116); ASPARTATE AMINOTRANSFERASE 19 U/L (15-37); BILIRUBIN,TOTAL 0.4 mg/dL (0.1-1.0); FREE T4 (FREE THYROXINE) 1.17 ng/dL (0.76-1.46); THYROID STIMULATING HORMONE 6.33 uIU/mL (0.36-3.74); TOTAL PROTEIN, SERUM 7.1 g/dL (6.4-8.2)
[2021-05-31 15:37] LABS: COVID AG,FIA SOURCE NASAL SWAB
[2021-05-31] MEDS ORDERED: ONDANSETRON HCL 4 MG/2 ML VIAL IVP PRN ×2 (16:45→17:15)
[2021-05-31] MEDS ORDERED: 0.9% SODIUM CHLORIDE 10 ML SYRINGE IVP PRN (16:45)
[2021-05-31] MEDS ORDERED: ACETAMINOPHEN 325 MG TABLET PO PRN ×2 (16:45→17:15)
[2021-05-31] MEDS ORDERED: BISACODYL 10 MG RECTAL RECTAL SUPPOSITORY PR PRN (17:15)
[2021-05-31] MEDS ORDERED: MORPHINE SULFATE 2 MG/ML SYRINGE IVP PRN (17:15)
[2021-05-31] MEDS ORDERED: ZOLPIDEM TARTRATE 5 MG TABLET PO PRN (17:15)
[2021-05-31] MEDS ORDERED: MAGNESIUM HYDROXIDE SUSPENSION 30 ML UDCUP PO PRN (17:15)
[2021-05-31] MEDS ORDERED: LIDOCAINE 5% TRANSDERMAL PATCH TD ONE (17:45)
[2021-05-31] MEDS ORDERED: ACETAMINOPHEN 325 MG TABLET PO ONE (17:45)
[2021-05-31] MEDS: CARVEDILOL 25 MG TABLET PO SCH (21:00)
[2021-05-31 21:32] VITALS: BP 124/52
[2021-05-31] MEDS: BUMETANIDE 1 MG TABLET PO SCH (21:50)
[2021-05-31] MEDS: DOCUSATE SODIUM 100 MG CAPSULE PO SCH (21:50)
[2021-05-31] MEDS: INSULIN GLARGINE,HUM.REC.ANLOG 100 UNITS/ML SQ SCH (21:50)
[2021-05-31] MEDS: HYDROCODONE/ACETAMINOPHEN 5-325 MG TABLET PO PRN (21:51)
[2021-05-31 23:23] VITALS: BP 151/68
[2021-05-31 23:41] LABS: GLUCOMETER DEV NAME(LOC) 5N.1C; GLUCOSE,POINT OF CARE 128 MG/DL (70-110)
[2021-06-01] MEDS: HEPARIN SODIUM,PORCINE 5,000 UNITS/ML VIAL SQ SCH ×3 (00:06→16:08)
[2021-06-01 05:17] VITALS: BP 151/75
[2021-06-01] MEDS: LEVOTHYROXINE SODIUM 25 MCG TABLET PO SCH (06:31)
[2021-06-01 07:05] LABS: BASOPHILS % (AUTO) 0.5 % (0.0-2.0); EOSINOPHILS % (AUTO) 2.3 % (1.0-6.0); HEMATOCRIT 27.9 % (36-46); HEMOGLOBIN 8.8 g/dL (12.0-16.0); LYMPHOCYTES # (AUTO) 0.7 K/uL (1.0-4.8); LYMPHOCYTES % (AUTO) 11.5 % (22.0-44.0); MEAN CORPUSCULAR HGB CONC 31.6 G/dL (31.0-37.0); MEAN CORPUSCULAR VOLUME 76 fL (80-100); MONOCYTES # (AUTO) 0.6 K/uL (0.1-1.0); MONOCYTES % (AUTO) 10.3 % (2.0-9.0); NEUTROPHILS # (AUTO) 4.5 K/uL (1.8-7.7); NEUTROPHILS % (AUTO) 75.4 % (40.0-70.0); PLATELET COUNT (AUTO) 257 K/uL (150-450); RED BLOOD CELL COUNT(AUTO) 3.67 MIL/uL (4.00-5.20); RED CELL DISTRIBUTION WIDTH 17.5 % (11.5-14.5)
[2021-06-01 08:00] VITALS: BP 158/65
[2021-06-01] MEDS: ASPIRIN 81 MG CHEWABLE TABLET PO SCH (08:30)
[2021-06-01] MEDS: CARVEDILOL 25 MG TABLET PO SCH ×2 (08:31→21:00)
[2021-06-01] MEDS: NIFEdipine 30 MG ER TABLET PO SCH (08:31)
[2021-06-01] MEDS: DOCUSATE SODIUM 100 MG CAPSULE PO SCH ×2 (08:31→20:34)
[2021-06-01] MEDS: ATORVASTATIN CALCIUM 20 MG TABLET PO SCH (08:31)
[2021-06-01] MEDS: BUMETANIDE 1 MG TABLET PO SCH ×2 (08:31→20:34)
[2021-06-01] MEDS: DULoxetine HCL 30 MG CAPSULE PO SCH (08:31)
[2021-06-01] MEDS: PANTOPRAZOLE SODIUM 40 MG DR TABLET PO SCH (08:31)
[2021-06-01] MEDS: HYDROCODONE/ACETAMINOPHEN 5-325 MG TABLET PO PRN ×2 (08:39→20:34)
[2021-06-01] MEDS ORDERED: DEXTROSE 50%-WATER 25 GM/50 ML SYRINGE IVP PRN (10:00)
[2021-06-01 11:33] VITALS: BP 155/58
[2021-06-01 16:07] VITALS: BP_SYST 151; BP_SYST 176; BP_DIAS 68; BP_DIAS 70
[2021-06-01 19:16] LABS: GLUCOMETER DEV NAME(LOC) 5S.2B; GLUCOSE,POINT OF CARE 132 MG/DL (70-110)
[2021-06-01 19:16] LABS: GLUCOMETER DEV NAME(LOC) 5S.2B; GLUCOSE,POINT OF CARE 86 MG/DL (70-110)
[2021-06-01 19:17] LABS: GLUCOMETER DEV NAME(LOC) 5S.2B; GLUCOSE,POINT OF CARE 122 MG/DL (70-110)
[2021-06-01 19:21] VITALS: BP 148/63
[2021-06-01] MEDS: INSULIN GLARGINE,HUM.REC.ANLOG 100 UNITS/ML SQ SCH (20:30)
[2021-06-01 23:30] VITALS: BP 152/68
[2021-06-02] MEDS: HYDROCODONE/ACETAMINOPHEN 5-325 MG TABLET PO PRN ×3 (00:36→20:21)
[2021-06-02] MEDS: HEPARIN SODIUM,PORCINE 5,000 UNITS/ML VIAL SQ SCH ×4 (00:36→23:58)
[2021-06-02 00:52] LABS: GLUCOMETER DEV NAME(LOC) 5S.2B; GLUCOSE,POINT OF CARE 165 MG/DL (70-110)
[2021-06-02 04:43] VITALS: BP 154/67
[2021-06-02] MEDS: LEVOTHYROXINE SODIUM 25 MCG TABLET PO SCH (06:05)
[2021-06-02 06:48] LABS: BASOPHILS % (AUTO) 0.7 % (0.0-2.0); EOSINOPHILS % (AUTO) 3.4 % (1.0-6.0); HEMATOCRIT 26.8 % (36-46); HEMOGLOBIN 8.6 g/dL (12.0-16.0); LYMPHOCYTES # (AUTO) 0.7 K/uL (1.0-4.8); LYMPHOCYTES % (AUTO) 13.2 % (22.0-44.0); MEAN CORPUSCULAR HGB CONC 32.2 G/dL (31.0-37.0); MEAN CORPUSCULAR VOLUME 75 fL (80-100); MONOCYTES # (AUTO) 0.6 K/uL (0.1-1.0); MONOCYTES % (AUTO) 10.7 % (2.0-9.0); NEUTROPHILS # (AUTO) 3.8 K/uL (1.8-7.7); PLATELET COUNT (AUTO) 257 K/uL (150-450); RED BLOOD CELL COUNT(AUTO) 3.59 MIL/uL (4.00-5.20); RED CELL DISTRIBUTION WIDTH 17.6 % (11.5-14.5)
[2021-06-02 07:01] LABS: GLUCOMETER DEV NAME(LOC) 5S.2B; GLUCOSE,POINT OF CARE 91 MG/DL (70-110)
[2021-06-02 07:11] LABS: % IRON SATURATION 7.6 % (22-44); CALCIUM, TOTAL 8.7 mg/dL (8.8-10.5); CREATININE 1.73 mg/dL (0.60-1.30); PHOSPHORUS 4.3 mg/dL (2.5-4.9); POTASSIUM 4.1 mmol/L (3.5-5.1)
[2021-06-02 07:50] VITALS: BP 175/67
[2021-06-02] MEDS: ASPIRIN 81 MG CHEWABLE TABLET PO SCH (08:46)
[2021-06-02] MEDS: ATORVASTATIN CALCIUM 20 MG TABLET PO SCH (08:46)
[2021-06-02] MEDS: DOCUSATE SODIUM 100 MG CAPSULE PO SCH ×2 (08:46→20:23)
[2021-06-02] MEDS: NIFEdipine 30 MG ER TABLET PO SCH (08:46)
[2021-06-02] MEDS: BUMETANIDE 1 MG TABLET PO SCH ×2 (08:47→20:21)
[2021-06-02] MEDS: HydrALAZINE HCL 25 MG TABLET PO SCH (08:47)
[2021-06-02] MEDS: PANTOPRAZOLE SODIUM 40 MG DR TABLET PO SCH (08:47)
[2021-06-02] MEDS: DULoxetine HCL 30 MG CAPSULE PO SCH (08:48)
[2021-06-02] MEDS: CARVEDILOL 25 MG TABLET PO SCH (09:00)
[2021-06-02 11:21] VITALS: BP 157/73
[2021-06-02 12:41] LABS: GLUCOMETER DEV NAME(LOC) 5S.1; GLUCOSE,POINT OF CARE 151 MG/DL (70-110)
[2021-06-02] MEDS ORDERED: SODIUM CHLORIDE 0.9% 250 ML IV ONE (15:58)
[2021-06-02] MEDS: SOD FERRIC GLUC COMPLX/SUCROSE 125 MG in SODIUM CHLORIDE 0.9% 100 ML IV SCH (16:07)
[2021-06-02] MEDS: INSULIN GLARGINE,HUM.REC.ANLOG 100 UNITS/ML SQ SCH (20:24)
[2021-06-02] MEDS: CARVEDILOL 12.5 MG TABLET PO SCH (21:01)
[2021-06-02 22:06] LABS: GLUCOMETER DEV NAME(LOC) 5S.1; GLUCOSE,POINT OF CARE 102 MG/DL (70-110)
[2021-06-02 22:06] LABS: GLUCOMETER DEV NAME(LOC) 5S.1; GLUCOSE,POINT OF CARE 140 MG/DL (70-110)
[2021-06-03] MEDS: HYDROCODONE/ACETAMINOPHEN 5-325 MG TABLET PO PRN ×3 (00:07→22:08)
[2021-06-03 01:55] VITALS: BP 157/61
[2021-06-03 05:06] VITALS: BP 146/58
[2021-06-03] MEDS: LEVOTHYROXINE SODIUM 25 MCG TABLET PO SCH (05:39)
[2021-06-03 05:57] LABS: GLUCOMETER DEV NAME(LOC) 5S.2B; GLUCOSE,POINT OF CARE 131 MG/DL (70-110)
[2021-06-03 07:55] LABS: BASOPHILS % (AUTO) 0.4 % (0.0-2.0); EOSINOPHILS % (AUTO) 1.8 % (1.0-6.0); HEMATOCRIT 28.7 % (36-46); HEMOGLOBIN 9.1 g/dL (12.0-16.0); LYMPHOCYTES # (AUTO) 0.6 K/uL (1.0-4.8); LYMPHOCYTES % (AUTO) 8.6 % (22.0-44.0); MEAN CORPUSCULAR HEMOGLOBIN 23.8 pg (26.0-34.0); MEAN CORPUSCULAR HGB CONC 31.9 G/dL (31.0-37.0); MEAN CORPUSCULAR VOLUME 75 fL (80-100); MONOCYTES # (AUTO) 0.6 K/uL (0.1-1.0); MONOCYTES % (AUTO) 8.3 % (2.0-9.0); NEUTROPHILS # (AUTO) 5.5 K/uL (1.8-7.7); NEUTROPHILS % (AUTO) 80.9 % (40.0-70.0); PLATELET COUNT (AUTO) 266 K/uL (150-450); RED BLOOD CELL COUNT(AUTO) 3.84 MIL/uL (4.00-5.20); RED CELL DISTRIBUTION WIDTH 17.8 % (11.5-14.5)
[2021-06-03] MEDS: HEPARIN SODIUM,PORCINE 5,000 UNITS/ML VIAL SQ SCH ×4 (08:19→23:57)
[2021-06-03] MEDS: DOCUSATE SODIUM 100 MG CAPSULE PO SCH ×2 (08:20→20:25)
[2021-06-03] MEDS: DULoxetine HCL 30 MG CAPSULE PO SCH (08:20)
[2021-06-03] MEDS: HydrALAZINE HCL 25 MG TABLET PO SCH (08:20)
[2021-06-03] MEDS: CARVEDILOL 12.5 MG TABLET PO SCH ×2 (08:20→20:25)
[2021-06-03] MEDS: NIFEdipine 30 MG ER TABLET PO SCH (08:21)
[2021-06-03] MEDS: ATORVASTATIN CALCIUM 20 MG TABLET PO SCH (08:21)
[2021-06-03] MEDS: ASPIRIN 81 MG CHEWABLE TABLET PO SCH (08:21)
[2021-06-03] MEDS: PANTOPRAZOLE SODIUM 40 MG DR TABLET PO SCH (08:21)
[2021-06-03] MEDS: BUMETANIDE 1 MG TABLET PO SCH ×2 (08:21→20:25)
[2021-06-03 08:40] VITALS: BP 152/60
[2021-06-03] MEDS ORDERED: EPOETIN ALFA 10,000 UNITS/ML VIAL SQ SCH (09:00)
[2021-06-03 10:51] LABS: CALCIUM, TOTAL 8.7 mg/dL (8.8-10.5); CREATININE 1.57 mg/dL (0.60-1.30); POTASSIUM 3.9 mmol/L (3.5-5.1)
[2021-06-03 12:28] VITALS: BP 153/61
[2021-06-03] MEDS: SOD FERRIC GLUC COMPLX/SUCROSE 125 MG in SODIUM CHLORIDE 0.9% 100 ML IV SCH (14:01)
[2021-06-03 14:26] LABS: GLUCOMETER DEV NAME(LOC) 5S.1; GLUCOSE,POINT OF CARE 138 MG/DL (70-110)
[2021-06-03 16:32] VITALS: BP 154/66
[2021-06-03] MEDS: INSULIN LISPRO 100 UNITS/ML SQ PRN ×2 (18:08→20:27)
[2021-06-03 20:01] LABS: GLUCOMETER DEV NAME(LOC) 5S.2B; GLUCOSE,POINT OF CARE 156 MG/DL (70-110)
[2021-06-03 20:20] VITALS: BP 151/59
[2021-06-03] MEDS: SACUBITRIL/VALSARTAN 24-26 MG TABLET PO SCH (20:25)
[2021-06-03] MEDS: INSULIN GLARGINE,HUM.REC.ANLOG 100 UNITS/ML SQ SCH (20:26)
[2021-06-03 21:27] LABS: GLUCOMETER DEV NAME(LOC) 5S.2B; GLUCOSE,POINT OF CARE 162 MG/DL (70-110)
[2021-06-04 00:28] VITALS: BP 151/65
[2021-06-04 04:42] VITALS: BP 144/58
[2021-06-04] MEDS: LEVOTHYROXINE SODIUM 25 MCG TABLET PO SCH (05:55)
[2021-06-04 06:21] LABS: GLUCOMETER DEV NAME(LOC) 5S.1; GLUCOSE,POINT OF CARE 78 MG/DL (70-110)
[2021-06-04 07:17] LABS: CALCIUM, TOTAL 8.4 mg/dL (8.8-10.5); CREATININE 1.41 mg/dL (0.60-1.30); POTASSIUM 3.5 mmol/L (3.5-5.1)
[2021-06-04] MEDS: HEPARIN SODIUM,PORCINE 5,000 UNITS/ML VIAL SQ SCH (09:35)
[2021-06-04] MEDS: SACUBITRIL/VALSARTAN 24-26 MG TABLET PO SCH (09:35)
[2021-06-04] MEDS: ASPIRIN 81 MG CHEWABLE TABLET PO SCH (09:36)
[2021-06-04] MEDS: PANTOPRAZOLE SODIUM 40 MG DR TABLET PO SCH (09:36)
[2021-06-04] MEDS: CARVEDILOL 12.5 MG TABLET PO SCH (09:36)
[2021-06-04] MEDS: DULoxetine HCL 30 MG CAPSULE PO SCH (09:36)
[2021-06-04] MEDS: DOCUSATE SODIUM 100 MG CAPSULE PO SCH (09:36)
[2021-06-04] MEDS: ATORVASTATIN CALCIUM 20 MG TABLET PO SCH (09:36)
[2021-06-04] MEDS: BUMETANIDE 1 MG TABLET PO SCH (09:36)
[2021-06-04] MEDS: HYDROCODONE/ACETAMINOPHEN 5-325 MG TABLET PO PRN (10:19)
[2021-06-04] MEDS ORDERED: SACU1TAB PO (10:55)
[2021-06-04] MEDS ORDERED: BUME1TAB6 PO (10:55)
[2021-06-04] MEDS ORDERED: ASPI81 PO (10:55)
[2021-06-04] MEDS ORDERED: CARV12 PO (10:55)
[2021-06-04] MEDS ORDERED: ATOR20TA65 PO (10:55)
[2021-06-04] MEDS ORDERED: INSLAN SQ (10:55)
[2021-06-04 11:14] VITALS: BP 153/71
[2021-06-04 12:32] LABS: GLUCOMETER DEV NAME(LOC) 5S.2B; GLUCOSE,POINT OF CARE 127 MG/DL (70-110)
[2021-06-04] MEDS: SOD FERRIC GLUC COMPLX/SUCROSE 125 MG in SODIUM CHLORIDE 0.9% 100 ML IV SCH (12:50)
[2021-06-04] MEDS ORDERED: SODIUM CHLORIDE 0.9% 1,000 ML ONE (13:53)
== END 2021-06-04 16:15 | disposition home health service (06) | DRG 73 ==
LOC: EMS 14:08 → 5S 17:06
PROVIDERS: ADMIT Internal Medicine; ATTEND Internal Medicine
DX: G90.8 Other disorders of autonomic nervous system (principal); I50.33 Acute on chronic diastolic (congestive) heart failure; I13.0 Hypertensive heart and chronic kidney disease with heart failure and stage 1 through stage 4 chronic kidney disease, or unspecified chronic kidney disease; I42.5 Other restrictive cardiomyopathy; N18.4 Chronic kidney disease, stage 4 (severe); N17.9 Acute kidney failure, unspecified; E11.649 Type 2 diabetes mellitus with hypoglycemia without coma; G82.20 Paraplegia, unspecified; I50.82 Biventricular heart failure; Z20.822 Contact with and (suspected) exposure to COVID-19; I27.81 Cor pulmonale (chronic); I27.29 Other secondary pulmonary hypertension; I25.10 Atherosclerotic heart disease of native coronary artery without angina pectoris; E11.22 Type 2 diabetes mellitus with diabetic chronic kidney disease; E03.9 Hypothyroidism, unspecified; D64.9 Anemia, unspecified; I49.5 Sick sinus syndrome; I44.0 Atrioventricular block, first degree; I07.1 Rheumatic tricuspid insufficiency; J44.9 Chronic obstructive pulmonary disease, unspecified; Z99.81 Dependence on supplemental oxygen; Z86.74 Personal history of sudden cardiac arrest; Z87.891 Personal history of nicotine dependence; Z95.1 Presence of aortocoronary bypass graft; Z79.899 Other long term (current) drug therapy; Z79.4 Long term (current) use of insulin; Z86.61 Personal history of infections of the central nervous system; Z99.3 Dependence on wheelchair; Z95.0 Presence of cardiac pacemaker; Z87.440 Personal history of urinary (tract) infections; Z88.8 Allergy status to other drugs, medicaments and biological substances; Z79.82 Long term (current) use of aspirin; Z90.49 Acquired absence of other specified parts of digestive tract
CPT/HCPCS: 70450; 71045; 80048; 80053; 82962; 83036; 83540; 83550; 83735; 83880; 84100; 84439; 84443; 84484; 85025; 87081; 93005; 93306; 97162; 99285; G0480; J0885; J1644; J1815; J2916; J7030; J7050; Q9967; 36415-L1; 36415-TC

== ENCOUNTER → 2021-06-19 | Outpatient (CLI) | payer MEDICARE, OTHER ==
[~2021-06-19] VITALS: Ht 154.9 cm; Wt 85.5 kg
[~2021-06-19] MED LIST changes: -ASPI-1450 PO; +ASPI81 PO; +ATOR20TA65 PO; -ATOR20TA86 PO; -BUME1TAB34 PO; +BUME1TAB6 PO; +CARV12 PO; -CARV25 PO; +SACU1TAB PO
[2021-06-19 10:59] VITALS: BP 189/92
== END | disposition home or self-care (01) ==
LOC: SRCNTR 10:36
PROVIDERS: ATTEND Internal Medicine
DX: I13.0 Hypertensive heart and chronic kidney disease with heart failure and stage 1 through stage 4 chronic kidney disease, or unspecified chronic kidney disease (principal); N18.30 Chronic kidney disease, stage 3 unspecified; E11.9 Type 2 diabetes mellitus without complications; I25.10 Atherosclerotic heart disease of native coronary artery without angina pectoris; M17.10 Unilateral primary osteoarthritis, unspecified knee; H26.9 Unspecified cataract; H35.30 Unspecified macular degeneration; G62.9 Polyneuropathy, unspecified; D07.0 Carcinoma in situ of endometrium; Z79.899 Other long term (current) drug therapy; Z88.8 Allergy status to other drugs, medicaments and biological substances; I50.9 Heart failure, unspecified; N30.40 Irradiation cystitis without hematuria
CPT/HCPCS: G0463

== ENCOUNTER → 2021-07-02 | Outpatient (CLI) | payer MEDICARE, OTHER ==
[2021-07-02 10:14] VITALS: BP 160/63
== END | disposition home or self-care (01) ==
LOC: SRCNTR 09:50
PROVIDERS: ATTEND Internal Medicine
DX: I13.0 Hypertensive heart and chronic kidney disease with heart failure and stage 1 through stage 4 chronic kidney disease, or unspecified chronic kidney disease (principal); N18.30 Chronic kidney disease, stage 3 unspecified; I50.32 Chronic diastolic (congestive) heart failure; I25.10 Atherosclerotic heart disease of native coronary artery without angina pectoris; I07.1 Rheumatic tricuspid insufficiency; M79.89 Other specified soft tissue disorders; M25.561 Pain in right knee; I49.5 Sick sinus syndrome; Z95.0 Presence of cardiac pacemaker; Z95.1 Presence of aortocoronary bypass graft
CPT/HCPCS: G0463; Z7500

== ENCOUNTER → 2021-07-05 | Outpatient (CLI) | payer MEDICARE, OTHER | END | disposition home or self-care (01) | LOC: RADPV 12:17 | PROVIDERS: ATTEND Internal Medicine | DX: R22.42 Localized swelling, mass and lump, left lower limb (principal) | CPT/HCPCS: 93971 ==

== ENCOUNTER 2021-08-04 17:38 | Inpatient (IN) | payer MEDICARE, OTHER ==
[~2021-08-04] VITALS: Ht 154.9 cm; Wt 92.9 kg
[~2021-08-04 17:38] MED LIST changes: +DULO-114 PO; -DULO30CA89 PO
[2021-08-04 18:16] LABS: GLUCOMETER DEV NAME(LOC) ERT.5; GLUCOSE,POINT OF CARE 124 MG/DL (70-110)
[2021-08-04 18:22] LABS: BASOPHILS % (AUTO) 0.3 % (0.0-2.0); EOSINOPHILS % (AUTO) 0.8 % (1.0-6.0); HEMATOCRIT 32.2 % (36-46); HEMOGLOBIN 9.7 g/dL (12.0-16.0); LYMPHOCYTES # (AUTO) 0.3 K/uL (1.0-4.8); MEAN CORPUSCULAR HEMOGLOBIN 23.6 pg (26.0-34.0); MEAN CORPUSCULAR HGB CONC 30.3 G/dL (31.0-37.0); MEAN CORPUSCULAR VOLUME 78 fL (80-100); MONOCYTES # (AUTO) 0.3 K/uL (0.1-1.0); MONOCYTES % (AUTO) 5.9 % (2.0-9.0); NEUTROPHILS # (AUTO) 4.3 K/uL (1.8-7.7); PLATELET COUNT (AUTO) 217 K/uL (150-450); RED BLOOD CELL COUNT(AUTO) 4.13 MIL/uL (4.00-5.20); RED CELL DISTRIBUTION WIDTH 19.5 % (11.5-14.5)
[2021-08-04 18:35] LABS: BILIRUBIN,TOTAL 0.4 mg/dL (0.1-1.0); CALCIUM, TOTAL 8.3 mg/dL (8.8-10.5); CREATININE 3.41 mg/dL (0.60-1.30); TOTAL PROTEIN, SERUM 7.3 g/dL (6.4-8.2)
[2021-08-04 18:39] LABS: POTASSIUM 6.3 mmol/L (3.5-5.1)
[2021-08-04 18:52] LABS: APPEARANCE,URINE CLEAR (CLEAR); BILIRUBIN,URINE NEGATIVE (NEGATIVE); GLUCOSE, URINE (UA) NEGATIVE (NEGATIVE); KETONES,URINE NEGATIVE (NEGATIVE); LEUKOCYTE ESTERASE ,URINE LARGE (NEGATIVE); NITRATE,URINE NEGATIVE (NEGATIVE); OCCULT BLOOD,URINE LARGE (NEGATIVE); PH,URINE 5.5 (5.0-8.0); PROTEIN,URINE 30-70 mg/dL (NEGATIVE); SPECIFIC GRAVITIY, URINE 1.011 (1.003-1.030); UROBILINOGEN,URINE <=1.0 mg/dL (<=1.0)
[2021-08-04 19:00] LABS: BACTERIA,URINE Moderate /HPF (None Seen); SQUAMOUS EPITHELIAL CELL,UR Few /LPF (None Seen)
[2021-08-04] MEDS ORDERED: SODIUM BICARBONATE [ADULT] 8.4% 50 MEQ/50 ML SYRINGE IVP ONE (19:15)
[2021-08-04] MEDS ORDERED: SODIUM POLYSTYRENE SULFONATE 15 GM/60 ML SUSPENSION BOTTLE PO ONE (19:15)
[2021-08-04] MEDS ORDERED: DEXTROSE 50%-WATER 25 GM/50 ML SYRINGE IVP ONE (19:15)
[2021-08-04] MEDS ORDERED: INSULIN REGULAR, HUMAN 100 UNITS/ML IVP ONE (19:15)
[2021-08-04 19:35] LABS: COVID AG,FIA SOURCE NASOPHARYNGEAL
[2021-08-04 20:30] LABS: GLUCOMETER DEV NAME(LOC) ERT.5; GLUCOSE,POINT OF CARE 159 MG/DL (70-110)
[2021-08-04 21:42] VITALS: BP 135/42
[2021-08-04] MEDS ORDERED: ZOLPIDEM TARTRATE 5 MG TABLET PO PRN (22:30)
[2021-08-04] MEDS ORDERED: MAGNESIUM HYDROXIDE SUSPENSION 30 ML UDCUP PO PRN (22:30)
[2021-08-04] MEDS ORDERED: BISACODYL 10 MG RECTAL RECTAL SUPPOSITORY PR PRN (22:30)
[2021-08-04] MEDS ORDERED: ONDANSETRON HCL 4 MG/2 ML VIAL IVP PRN (22:30)
[2021-08-04] MEDS ORDERED: MORPHINE SULFATE 2 MG/ML SYRINGE IVP PRN (22:30)
[2021-08-04] MEDS: HEPARIN SODIUM,PORCINE 5,000 UNITS/ML VIAL SQ SCH (23:27)
[2021-08-05] VITALS (7 sets, daily range): BP systolic 102–134; BP diastolic 45–74
[2021-08-05 01:46] LABS: GLUCOMETER DEV NAME(LOC) 5N.1C; GLUCOSE,POINT OF CARE 102 MG/DL (70-110)
[2021-08-05 02:37] LABS: C.DIFF GDH ANTIGEN, Stool Negative (Negative); C.DIFF TOXINS A&B, Stool Negative (Negative)
[2021-08-05] MEDS: LEVOTHYROXINE SODIUM 25 MCG TABLET PO SCH (06:12)
[2021-08-05 07:15] LABS: BASOPHILS % (AUTO) 0.4 % (0.0-2.0); EOSINOPHILS % (AUTO) 2.1 % (1.0-6.0); HEMATOCRIT 29.8 % (36-46); HEMOGLOBIN 9.2 g/dL (12.0-16.0); LYMPHOCYTES # (AUTO) 0.9 K/uL (1.0-4.8); LYMPHOCYTES % (AUTO) 16.3 % (22.0-44.0); MEAN CORPUSCULAR HGB CONC 30.9 G/dL (31.0-37.0); MEAN CORPUSCULAR VOLUME 78 fL (80-100); MONOCYTES # (AUTO) 0.7 K/uL (0.1-1.0); MONOCYTES % (AUTO) 12.1 % (2.0-9.0); NEUTROPHILS # (AUTO) 3.7 K/uL (1.8-7.7); NEUTROPHILS % (AUTO) 69.1 % (40.0-70.0); PLATELET COUNT (AUTO) 201 K/uL (150-450); RED BLOOD CELL COUNT(AUTO) 3.83 MIL/uL (4.00-5.20)
[2021-08-05 07:23] LABS: CREATININE 2.83 mg/dL (0.60-1.30)
[2021-08-05] MEDS ORDERED: SODIUM CHLORIDE 0.45% 1,000 ML IV ONE (08:30)
[2021-08-05] MEDS: DOCUSATE SODIUM 100 MG CAPSULE PO SCH ×2 (08:31→21:06)
[2021-08-05] MEDS: NIFEdipine 30 MG ER TABLET PO SCH (08:33)
[2021-08-05] MEDS: ASPIRIN 81 MG CHEWABLE TABLET PO SCH (08:33)
[2021-08-05] MEDS: GABAPENTIN 300 MG CAPSULE PO SCH ×3 (08:33→21:05)
[2021-08-05] MEDS: DULoxetine HCL 30 MG CAPSULE PO SCH (08:34)
[2021-08-05] MEDS: CARVEDILOL 12.5 MG TABLET PO SCH ×2 (08:34→21:06)
[2021-08-05] MEDS: ATORVASTATIN CALCIUM 20 MG TABLET PO SCH (08:34)
[2021-08-05] MEDS: HEPARIN SODIUM,PORCINE 5,000 UNITS/ML VIAL SQ SCH ×3 (08:35→23:17)
[2021-08-05] MEDS: PANTOPRAZOLE SODIUM 40 MG DR TABLET PO SCH (08:35)
[2021-08-05] MEDS: EPOETIN ALFA 10,000 UNITS/ML 2 ML VIAL SQ SCH (10:39)
[2021-08-05] MEDS: HYDROCODONE/ACETAMINOPHEN 5-325 MG TABLET PO PRN (10:39)
[2021-08-05] MEDS ORDERED: DEXTROSE 50%-WATER 25 GM/50 ML SYRINGE IVP PRN (12:15)
[2021-08-05] MEDS: ACETAMINOPHEN 325 MG TABLET PO PRN (21:06)
[2021-08-05] MEDS: INSULIN GLARGINE,HUM.REC.ANLOG 100 UNITS/ML SQ SCH (21:09)
[2021-08-05] MEDS: INSULIN LISPRO 100 UNITS/ML SQ PRN (21:10)
[2021-08-06 02:01] LABS: GLUCOMETER DEV NAME(LOC) 5S.2B; GLUCOSE,POINT OF CARE 85 MG/DL (70-110)
[2021-08-06 02:01] LABS: GLUCOMETER DEV NAME(LOC) 5S.2B; GLUCOSE,POINT OF CARE 113 MG/DL (70-110)
[2021-08-06 04:03] VITALS: BP 120/61
[2021-08-06] MEDS: ACETAMINOPHEN 325 MG TABLET PO PRN ×2 (04:52→20:38)
[2021-08-06 05:06] LABS: GLUCOMETER DEV NAME(LOC) 5N.1C; GLUCOSE,POINT OF CARE 155 MG/DL (70-110)
[2021-08-06] MEDS: LEVOTHYROXINE SODIUM 25 MCG TABLET PO SCH (05:47)
[2021-08-06 06:50] LABS: CREATININE 2.54 mg/dL (0.60-1.30); POTASSIUM 3.8 mmol/L (3.5-5.1)
[2021-08-06 07:47] VITALS: BP 126/66
[2021-08-06] MEDS: PANTOPRAZOLE SODIUM 40 MG DR TABLET PO SCH (08:08)
[2021-08-06] MEDS: DOCUSATE SODIUM 100 MG CAPSULE PO SCH ×2 (08:09→20:38)
[2021-08-06] MEDS: CARVEDILOL 12.5 MG TABLET PO SCH ×2 (08:10→20:42)
[2021-08-06] MEDS: NIFEdipine 30 MG ER TABLET PO SCH (08:10)
[2021-08-06] MEDS: GABAPENTIN 300 MG CAPSULE PO SCH ×3 (08:10→20:37)
[2021-08-06] MEDS: ASPIRIN 81 MG CHEWABLE TABLET PO SCH (08:10)
[2021-08-06] MEDS: ATORVASTATIN CALCIUM 20 MG TABLET PO SCH (08:11)
[2021-08-06] MEDS: DULoxetine HCL 30 MG CAPSULE PO SCH (08:11)
[2021-08-06] MEDS: HEPARIN SODIUM,PORCINE 5,000 UNITS/ML VIAL SQ SCH ×3 (08:13→23:42)
[2021-08-06 09:02] LABS: MAGNESIUM 2.1 mg/dL (1.80-2.40); PHOSPHORUS 4.7 mg/dL (2.5-4.9)
[2021-08-06 11:38] VITALS: BP 135/63
[2021-08-06 12:51] LABS: GLUCOMETER DEV NAME(LOC) 5N.1C; GLUCOSE,POINT OF CARE 108 MG/DL (70-110)
[2021-08-06 12:51] LABS: GLUCOMETER DEV NAME(LOC) 5N.1C; GLUCOSE,POINT OF CARE 107 MG/DL (70-110)
[2021-08-06 15:29] VITALS: BP 137/59
[2021-08-06] MEDS ORDERED: SODIUM CHLORIDE 0.9% 250 ML IV ONE (17:36)
[2021-08-06] MEDS: CefTAZidime PENTAHYDRATE 1 GM in DEXTROSE 5%-WATER 50 ML IV SCH (17:42)
[2021-08-06 19:34] VITALS: BP 151/51
[2021-08-06 19:56] LABS: GLUCOMETER DEV NAME(LOC) 5N.3; GLUCOSE,POINT OF CARE 116 MG/DL (70-110)
[2021-08-06] MEDS: INSULIN LISPRO 100 UNITS/ML SQ PRN (20:40)
[2021-08-06] MEDS: INSULIN GLARGINE,HUM.REC.ANLOG 100 UNITS/ML SQ SCH (20:41)
[2021-08-06 21:16] LABS: GLUCOMETER DEV NAME(LOC) 5S.2B; GLUCOSE,POINT OF CARE 180 MG/DL (70-110)
[2021-08-06 23:32] VITALS: BP 146/56
[2021-08-07 04:28] VITALS: BP 157/62
[2021-08-07] MEDS: LEVOTHYROXINE SODIUM 25 MCG TABLET PO SCH (05:58)
[2021-08-07] MEDS: CefTAZidime PENTAHYDRATE 1 GM in DEXTROSE 5%-WATER 50 ML IV SCH ×2 (05:58→17:24)
[2021-08-07 07:46] VITALS: BP 178/71
[2021-08-07 07:48] LABS: CALCIUM, TOTAL 8.7 mg/dL (8.8-10.5); CREATININE 2.04 mg/dL (0.60-1.30); POTASSIUM 4.1 mmol/L (3.5-5.1); THYROID STIMULATING HORMONE 3.84 uIU/mL (0.36-3.74)
[2021-08-07] MEDS: ASPIRIN 81 MG CHEWABLE TABLET PO SCH (08:18)
[2021-08-07] MEDS: CARVEDILOL 12.5 MG TABLET PO SCH ×2 (08:20→20:37)
[2021-08-07] MEDS: DULoxetine HCL 30 MG CAPSULE PO SCH (08:20)
[2021-08-07] MEDS: GABAPENTIN 300 MG CAPSULE PO SCH ×3 (08:20→20:37)
[2021-08-07] MEDS: DOCUSATE SODIUM 100 MG CAPSULE PO SCH ×2 (08:20→20:37)
[2021-08-07] MEDS: PANTOPRAZOLE SODIUM 40 MG DR TABLET PO SCH (08:20)
[2021-08-07] MEDS: ATORVASTATIN CALCIUM 20 MG TABLET PO SCH (08:20)
[2021-08-07] MEDS: EPOETIN ALFA 10,000 UNITS/ML 2 ML VIAL SQ SCH (08:20)
[2021-08-07] MEDS: NIFEdipine 30 MG ER TABLET PO SCH (08:21)
[2021-08-07] MEDS: HEPARIN SODIUM,PORCINE 5,000 UNITS/ML VIAL SQ SCH ×2 (08:21→16:34)
[2021-08-07] MEDS: HYDROCODONE/ACETAMINOPHEN 5-325 MG TABLET PO PRN ×2 (08:25→20:37)
[2021-08-07] MEDS: BUMETANIDE 1 MG TABLET PO SCH (10:08)
[2021-08-07 10:22] VITALS: BP 133/59
[2021-08-07 11:03] VITALS: BP 154/69
[2021-08-07 12:01] LABS: GLUCOMETER DEV NAME(LOC) 5S.2B; GLUCOSE,POINT OF CARE 74 MG/DL (70-110)
[2021-08-07 15:36] VITALS: BP 149/67
[2021-08-07] MEDS: INSULIN LISPRO 100 UNITS/ML SQ PRN ×2 (17:25→20:43)
[2021-08-07 20:06] LABS: GLUCOMETER DEV NAME(LOC) 5N.1C; GLUCOSE,POINT OF CARE 111 MG/DL (70-110)
[2021-08-07 20:06] LABS: GLUCOMETER DEV NAME(LOC) 5N.1C; GLUCOSE,POINT OF CARE 171 MG/DL (70-110)
[2021-08-07] MEDS: INSULIN GLARGINE,HUM.REC.ANLOG 100 UNITS/ML SQ SCH (20:42)
[2021-08-07 20:49] VITALS: BP 158/73
[2021-08-08 00:15] VITALS: BP 165/70
[2021-08-08] MEDS ORDERED: AmLODIPine BESYLATE 5 MG TABLET PO SCH (00:30)
[2021-08-08] MEDS: HYDROCODONE/ACETAMINOPHEN 5-325 MG TABLET PO PRN ×3 (01:00→14:48)
[2021-08-08] MEDS: HEPARIN SODIUM,PORCINE 5,000 UNITS/ML VIAL SQ SCH ×3 (01:00→16:08)
[2021-08-08 01:01] LABS: GLUCOMETER DEV NAME(LOC) 5N.1C; GLUCOSE,POINT OF CARE 165 MG/DL (70-110)
[2021-08-08 04:09] VITALS: BP 142/55
[2021-08-08] MEDS: CefTAZidime PENTAHYDRATE 1 GM in DEXTROSE 5%-WATER 50 ML IV SCH (05:58)
[2021-08-08] MEDS: LEVOTHYROXINE SODIUM 25 MCG TABLET PO SCH (05:59)
[2021-08-08 06:47] LABS: GLUCOMETER DEV NAME(LOC) 5N.1C; GLUCOSE,POINT OF CARE 115 MG/DL (70-110)
[2021-08-08 07:15] VITALS: BP 141/56
[2021-08-08] MEDS: GABAPENTIN 300 MG CAPSULE PO SCH ×2 (08:40→16:08)
[2021-08-08] MEDS: ATORVASTATIN CALCIUM 20 MG TABLET PO SCH (08:40)
[2021-08-08] MEDS: DULoxetine HCL 30 MG CAPSULE PO SCH (08:40)
[2021-08-08] MEDS: ASPIRIN 81 MG CHEWABLE TABLET PO SCH (08:40)
[2021-08-08] MEDS: DOCUSATE SODIUM 100 MG CAPSULE PO SCH (08:41)
[2021-08-08] MEDS: BUMETANIDE 1 MG TABLET PO SCH (08:41)
[2021-08-08] MEDS: CARVEDILOL 12.5 MG TABLET PO SCH (08:41)
[2021-08-08] MEDS: PANTOPRAZOLE SODIUM 40 MG DR TABLET PO SCH (08:41)
[2021-08-08] MEDS ORDERED: NIFEdipine 60 MG ER TABLET PO SCH (09:00)
[2021-08-08 09:47] LABS: CALCIUM, TOTAL 8.5 mg/dL (8.8-10.5); CREATININE 1.65 mg/dL (0.60-1.30); POTASSIUM 3.9 mmol/L (3.5-5.1)
[2021-08-08 11:14] VITALS: BP 143/64
[2021-08-08 11:51] LABS: GLUCOMETER DEV NAME(LOC) 5N.1C; GLUCOSE,POINT OF CARE 125 MG/DL (70-110)
[2021-08-08 15:30] VITALS: BP 127/49
[2021-08-08] MEDS: INSULIN LISPRO 100 UNITS/ML SQ PRN (17:16)
[2021-08-08 19:51] LABS: GLUCOMETER DEV NAME(LOC) 5N.1C; GLUCOSE,POINT OF CARE 178 MG/DL (70-110)
== END 2021-08-08 18:25 | disposition home health service (06) | DRG 682 ==
LOC: EMS 17:38 → 5S 20:25
PROVIDERS: ADMIT Internal Medicine; ATTEND Internal Medicine
DX: N17.9 Acute kidney failure, unspecified (principal); I50.21 Acute systolic (congestive) heart failure; I13.0 Hypertensive heart and chronic kidney disease with heart failure and stage 1 through stage 4 chronic kidney disease, or unspecified chronic kidney disease; E44.0 Moderate protein-calorie malnutrition; G82.20 Paraplegia, unspecified; N39.0 Urinary tract infection, site not specified; N18.4 Chronic kidney disease, stage 4 (severe); E11.22 Type 2 diabetes mellitus with diabetic chronic kidney disease; E03.9 Hypothyroidism, unspecified; E78.5 Hyperlipidemia, unspecified; Z20.822 Contact with and (suspected) exposure to COVID-19; E87.5 Hyperkalemia; G47.33 Obstructive sleep apnea (adult) (pediatric); E11.40 Type 2 diabetes mellitus with diabetic neuropathy, unspecified; I16.0 Hypertensive urgency; N13.9 Obstructive and reflux uropathy, unspecified; I36.1 Nonrheumatic tricuspid (valve) insufficiency; J44.9 Chronic obstructive pulmonary disease, unspecified; M17.10 Unilateral primary osteoarthritis, unspecified knee; I25.10 Atherosclerotic heart disease of native coronary artery without angina pectoris; E87.6 Hypokalemia; R53.81 Other malaise; E66.01 Morbid (severe) obesity due to excess calories; D63.8 Anemia in other chronic diseases classified elsewhere; Z88.8 Allergy status to other drugs, medicaments and biological substances; Z85.42 Personal history of malignant neoplasm of other parts of uterus; Z95.0 Presence of cardiac pacemaker; Z95.1 Presence of aortocoronary bypass graft; Z99.3 Dependence on wheelchair; Z79.4 Long term (current) use of insulin; Z86.61 Personal history of infections of the central nervous system; Z87.440 Personal history of urinary (tract) infections; Z87.891 Personal history of nicotine dependence; Z90.710 Acquired absence of both cervix and uterus; Z92.3 Personal history of irradiation; Z99.81 Dependence on supplemental oxygen; Z68.38 Body mass index [BMI] 38.0-38.9, adult; Z90.49 Acquired absence of other specified parts of digestive tract
CPT/HCPCS: 71045; 80048; 80053; 81001; 82962; 83690; 83735; 83880; 84100; 84132; 84443; 84484; 85025; 87045; 87086; 87324; 87449; 93005; 97110; 97163; 97166; 97530; 97535; 99291; J0713; J0885; J1644; J1815; J2270; J3490; J7050; J7060; 36415-L1; 36415-TC

== ENCOUNTER → 2021-08-22 | Outpatient (CLI) | payer MEDICARE, OTHER ==
[~2021-08-22] VITALS: Ht 162.6 cm; Wt 82.0 kg
[~2021-08-22] MED LIST changes: +BUME0.253 IM; -BUME1TAB6 PO; +FERR325T27 PO; +ISOS30TA92 PO; +LISI-893 PO; +NIFE-2 PO; -NIFE30TA5 PO; +TRAM50TA2 PO; +TRAM50TA4 PO
[2021-08-22 10:35] VITALS: BP 168/72
== END | disposition home or self-care (01) ==
LOC: SRCNTR 10:22
PROVIDERS: ATTEND Hospitalist
DX: I13.0 Hypertensive heart and chronic kidney disease with heart failure and stage 1 through stage 4 chronic kidney disease, or unspecified chronic kidney disease (principal); I50.32 Chronic diastolic (congestive) heart failure; N18.9 Chronic kidney disease, unspecified; E11.22 Type 2 diabetes mellitus with diabetic chronic kidney disease; N31.9 Neuromuscular dysfunction of bladder, unspecified; I25.10 Atherosclerotic heart disease of native coronary artery without angina pectoris; M19.90 Unspecified osteoarthritis, unspecified site; H26.9 Unspecified cataract
CPT/HCPCS: G0463; Z7500